=== PATIENT | male | born 1985 | race American Indian/Alaskan Native ===

== ENCOUNTER 2019-03-02 23:12 | Inpatient (IN) | payer OTHER ==
[2019-03-02] MEDS ORDERED: ASPIRIN PO ONE (23:35)
[2019-03-03 00:10] LABS: Basophils # (Auto) 0.1 K/mm3 (0.0-0.1); Basophils % (Auto) 0.6 % (0.0-1.8); Eosinophils # (Auto) 0.4 K/mm3 (0.0-0.4); Eosinophils % (Auto) 3.2 % (0.0-4.3); Hematocrit 42.9 % (35.5-45.6); Hemoglobin 13.8 gm/dl (11.8-15.2); Lymphocytes % (Auto) 23.3 % (13.4-35.0); Mean Corpuscular HGB Conc 32 % (32-34); Mean Corpuscular Volume 77 fl (84-94); Monocytes # (Auto) 1.3 K/mm3 (0.0-0.8); Monocytes % (Auto) 9.8 % (0.0-7.3); Platelet Count 300 K/mm3 (140-440); Red Blood Count 5.59 M/mm3 (3.65-5.03); Red Cell Distribution Width 18.2 % (13.2-15.2)
--- NOTE | 2019-03-03 00:12 | Emergency Department Report ---
ED Chest Pain HPI - General Chief Complaint: Chest Pain Stated Complaint: CHEST PAIN Time Seen by Provider: 03/02/19 23:45 Source: patient Mode of arrival: Ambulatory Limitations: No Limitations - History of Present Illness Initial Comments: 33-year-old -[place] male presents to the emergency department with a complaint of some midsternal nonradiating chest pain that has been going on for the past week intermittently but has become aggressively more intense and constant. The pains appear to be worse at night. His shorts of breath worsens with exertion. He denies any fever, cough, edema, nausea, vomiting or diaphoresis. He presents with elevated blood pressure and admits to medication noncompliance. There is some history of diabetes but he is not any medication as he says the medication previously prescribed to him was way too expensive. He also has a history of previous CVA without any residual deficits. Denies any tobacco or illicit drug use. He does not have a primary care physician. No recent travel. Severity scale (0 -10): 5 - Related Data Previous Rx's Medication Instructions Recorded Last Taken Type metFORMIN [Glucophage] 500 mg PO BID #60 tablet 03/15/15 06/14/15 Rx Carvedilol [Coreg] 12.5 mg PO BID #60 tablet 06/15/15 Unknown Rx Lisinopril/Hydrochlorothiazide 1 tab PO QDAY #30 tab 06/15/15 Unknown Rx [Zestoretic 20-25 mg] amLODIPine [Norvasc] 10 mg PO QDAY #30 tablet 06/15/15 Unknown Rx cloNIDine [Catapres] 0.1 mg PO DAILY #30 tablet 01/30/16 Unknown Rx hydrALAZINE [Apresoline TAB] 25 mg PO TID #90 tablet 01/30/16 Unknown Rx levoFLOXacin [Levaquin TAB] 750 mg PO Q24HR #7 tablet 01/30/16 Unknown Rx Allergies Allergy/AdvReac Type Severity Reaction Status Date / Time ants Allergy Swelling Uncoded 01/24/16 10:50 Heart Score - HEART Score History: Slightly suspicious EKG: Non-specific Age: < 45 Risk factors: > 3 risk factors or hx of atherosclerotic disease Troponin: 1-3x normal limit HEART Score: 4 - Critical Actions Critical Actions: 4-6 pts:12-16.6% risk of adverse cardiac event. Should be admitted ED Review of Systems ROS: Stated complaint: CHEST PAIN Other details as noted in HPI Comment: All other systems reviewed and negative Constitutional: denies: chills, fever Eyes: denies: eye pain, vision change ENT: denies: ear pain, throat pain Respiratory: shortness of breath, SOB with exertion. denies: cough Cardiovascular: chest pain. denies: palpitations Gastrointestinal: denies: abdominal pain, vomiting Genitourinary: denies: dysuria, discharge Musculoskeletal: denies: back pain, arthralgia Skin: denies: rash, lesions Neurological: denies: headache, weakness ED Past Medical Hx - Past Medical History Previous Medical History?: Yes Hx Hypertension: Yes Hx Congestive Heart Failure: No Hx Diabetes: Yes Hx Asthma: No Hx COPD: No Hx HIV: No Additional medical history: MORBID OBESITY - Surgical History Past Surgical History?: No - Social History Smoking Status: Never Smoker Substance Use Type: None - Medications Home Medications: Home Medications Medication Instructions Recorded Confirmed Last Taken Type metFORMIN [Glucophage] 500 mg PO BID #60 tablet 03/15/15 06/14/15 06/14/15 Rx Carvedilol [Coreg] 12.5 mg PO BID #60 tablet 06/15/15 Unknown Rx Lisinopril/Hydrochlorothiazide 1 tab PO QDAY #30 tab 06/15/15 Unknown Rx [Zestoretic 20-25 mg] amLODIPine [Norvasc] 10 mg PO QDAY #30 tablet 06/15/15 Unknown Rx cloNIDine [Catapres] 0.1 mg PO DAILY #30 tablet 01/30/16 Unknown Rx hydrALAZINE [Apresoline TAB] 25 mg PO TID #90 tablet 01/30/16 Unknown Rx levoFLOXacin [Levaquin TAB] 750 mg PO Q24HR #7 tablet 01/30/16 Unknown Rx ED Physical Exam - General Limitations: No Limitations - Other Other exam information: GENERAL: The patient is well-developed well-nourished. HENT: Normocephalic. Atraumatic. Patient has moist mucous membranes. EYES: Extraocular motions are intact. NECK: Supple. Trachea is midline. CHEST/LUNGS: Clear to auscultation. There is no respiratory distress noted. Chest pain is not reproducible to palpation of the chest wall. HEART/CARDIOVASCULAR: Regular. There is no tachycardia. There is no murmur. ABDOMEN: Abdomen is soft, nontender. Patient has normal bowel sounds. Morbidly obese habitus. SKIN: Skin is warm and dry. NEURO: The patient is awake, alert, and oriented. The patient is cooperative. The patient has no focal neurologic deficits. Normal speech. MUSCULOSKELETAL: There is no tenderness or deformity. There is no evidence of acute injury. ED Course Vital Signs 03/02/19 03/02/19 03/03/19 23:21 23:47 00:50 Temperature 99.0 F 98.2 F Pulse Rate 109 H 104 H 104 H Respiratory 20 14 Rate Blood Pressure 212/164 200/144 Blood Pressure 209/153 [Left] O2 Sat by Pulse 96 93 Oximetry 03/03/19 03/03/19 03/03/19 00:52 01:00 01:22 Temperature Pulse Rate 107 H Respiratory 20 25 H 15 Rate Blood Pressure 215/152 Blood Pressure [Left] O2 Sat by Pulse 94 Oximetry 03/03/19 02:09 Temperature Pulse Rate 111 H Respiratory Rate Blood Pressure 221/150 Blood Pressure [Left] O2 Sat by Pulse Oximetry - Reevaluation(s) Reevaluation #1: 03/03/19 02:54 Lab Results 03/02/19 03/02/19 03/02/19 Range/Units 23:54 23:54 23:54 WBC 13.0 H (4.5-11.0) K/mm3 RBC 5.59 H (3.65-5.03) M/mm3 Hgb 13.8 (11.8-15.2) gm/dl Hct 42.9 (35.5-45.6) % MCV 77 L (84-94) fl MCH 25 L (28-32) pg MCHC 32 (32-34) % RDW 18.2 H (13.2-15.2) % Plt Count 300 (140-440) K/mm3 Lymph % (Auto) 23.3 (13.4-35.0) % [place] % (Auto) 9.8 H (0.0-7.3) % Eos % (Auto) 3.2 (0.0-4.3) % Baso % (Auto) 0.6 (0.0-1.8) % Lymph # 3.0 (1.2-5.4) K/mm3 [place] # 1.3 H (0.0-0.8) K/mm3 Eos # 0.4 (0.0-0.4) K/mm3 Baso # 0.1 (0.0-0.1) K/mm3 Seg Neutrophils % 63.1 (40.0-70.0) % Seg Neutrophils # 8.2 H (1.8-7.7) K/mm3 D-Dimer 1549.97 H (0-234) ng/mlDDU Sodium 142 (137-145) mmol/L Potassium 2.8 L* (3.6-5.0) mmol/L Chloride 98.2 (98-107) mmol/L Carbon Dioxide 29 (22-30) mmol/L Anion Gap 18 mmol/L BUN 21 H (9-20) mg/dL Creatinine 2.5 H (0.8-1.5) mg/dL Estimated GFR 36 ml/min BUN/Creatinine Ratio 8 % Glucose 128 H (75-100) mg/dL Calcium 7.4 L (8.4-10.2) mg/dL Troponin T 0.042 H (0.00-0.029) ng/mL NT-Pro-B Natriuret Pep (0-450) pg/mL 03/02/19 Range/Units 23:54 WBC (4.5-11.0) K/mm3 RBC (3.65-5.03) M/mm3 Hgb (11.8-15.2) gm/dl Hct (35.5-45.6) % MCV (84-94) fl MCH (28-32) pg MCHC (32-34) % RDW (13.2-15.2) % Plt Count (140-440) K/mm3 Lymph % (Auto) (13.4-35.0) % [place] % (Auto) (0.0-7.3) % Eos % (Auto) (0.0-4.3) % Baso % (Auto) (0.0-1.8) % Lymph # (1.2-5.4) K/mm3 [place] # (0.0-0.8) K/mm3 Eos # (0.0-0.4) K/mm3 Baso # (0.0-0.1) K/mm3 Seg Neutrophils % (40.0-70.0) % Seg Neutrophils # (1.8-7.7) K/mm3 D-Dimer (0-234) ng/mlDDU Sodium (137-145) mmol/L Potassium (3.6-5.0) mmol/L Chloride (98-107) mmol/L Carbon Dioxide (22-30) mmol/L Anion Gap mmol/L BUN (9-20) mg/dL Creatinine (0.8-1.5) mg/dL Estimated GFR ml/min BUN/Creatinine Ratio % Glucose (75-100) mg/dL Calcium (8.4-10.2) mg/dL Troponin T (0.00-0.029) ng/mL NT-Pro-B Natriuret Pep 1100 H (0-450) pg/mL LILIANA score - Liliana Score Age > 65: (0) No Aspirin use within the Past 7 Days: (0) No 3 or more CAD Risk Factors: (1) Yes 2 or more Angina events in past 24 hrs: (1) Yes Known CAD with more than 50% Stenosis: (0) No Elevated Cardiac Markers: (1) Yes ST Deviation Greater than 0.5mm: (0) No LILIANA Score: 3 ED Medical Decision Making - Lab Data Result diagrams: 03/02/19 23:54 03/02/19 23:54 - EKG Data -: EKG Interpreted by Sd EKG shows normal: sinus rhythm, axis, intervals, QRS complexes (q waves to the septal leads), ST-T waves (t wave inversion to the lateral leads) Rate: tachycardia (111 bpm) - EKG Data When compared to previous EKG there are: no significant change Interpretation: unchanged when compared t (01/24/16) - Radiology Data Radiology results: report reviewed CHEST 1 VIEW INDICATION / CLINICAL INFORMATION: Chest Pain. COMPARISON: 01/29/2016 FINDINGS: SUPPORT DEVICES: None. HEART / MEDIASTINUM: Cardiomediastinal silhouette is at the upper limit of normal in size. LUNGS / PLEURA: Hazy, indistinct opacity in the right suprahilar area and bibasilar inhomogeneous densities. No pneumothorax. ADDITIONAL FINDINGS: No significant additional findings. IMPRESSION: 1. Bilateral basilar pleural-parenchymal opacities. 2. Indistinct right perihilar opacity may represent airspace disease. NM lung scan perf/vent INDICATION / CLINICAL INFORMATION: CP, elevated dimer. TECHNIQUE: Dose / Agent / Route: 5.11 technetium 99m MAA IV and 15.1mCi xenon- 133 inhaled COMPARISON: Portable chest x-ray 03/02/2019 FINDINGS: There are no segmental or subsegmental perfusion defects. Ventilation images show mild bilateral air trapping. IMPRESSION: 1. Low probability for pulmonary embolism. - Medical Decision Making This patient presents with a one-week history of progressively worsening chest pain and also presents with extremely elevated blood pressure. He has a history of hypertension but has medication noncompliance. Patient's labs show some abnormalities with what appears to be some acute renal insufficiency/failure, and an elevated and equivocal troponin level. The elevated troponin may be secondary to the renal insufficiency but the patient also has chest pain so this is concerning and will be trended. Chest x-ray does not show any acute process. The patient did have an elevated d-dimer level so a VQ scan was done that came back low probability for a pulmonary embolism. The patient has a moderate heart score and LILIANA score. The patient has been given pain control, hydralazine, labetalol, and still has elevated blood pressure. He will be admitted to the hospital for further evaluation and treatment was accepted for admission by the hospitalist, Dr. Malagon. - Differential Diagnosis MN, PE, Hypertensive Crisis, Pneumonia Critical Care Time: No Critical care attestation.: If time is entered above; I have spent that time in minutes in the direct care of this critically ill patient, excluding procedure time. ED Disposition Clinical Impression: Acute chest pain, Elevated troponin, Hypokalemia, Hypertensive urgency Acute kidney failure Qualifiers: Acute renal failure type: unspecified Qualified Code(s): N17.9 - Acute kidney failure, unspecified Disposition: OP ADMIT IP TO THIS HOSP Is pt being admited?: Yes Condition: Fair Instructions: Chest Pain (ED) Referrals: PRIMARY CARE, [Primary Care Provider] - 3-5 Days Time of Disposition: 02:11
--- NOTE | 2019-03-03 00:18 | XRay Report ---
CHEST 1 VIEW INDICATION / CLINICAL INFORMATION: Chest Pain. COMPARISON: 01/29/2016 FINDINGS: SUPPORT DEVICES: None. HEART / MEDIASTINUM: Cardiomediastinal silhouette is at the upper limit of normal in size. LUNGS / PLEURA: Hazy, indistinct opacity in the right suprahilar area and bibasilar inhomogeneous den sities. No pneumothorax. ADDITIONAL FINDINGS: No significant additional findings. IMPRESSION: 1. Bilateral basilar pleural-parenchymal opacities. 2. Indistinct right perihilar opacity may represent airspace disease. Signer Name: Shahzad Lopez MD Signed: 03/03/2019 12:13 AM Workstation Name: [email or web address] ([facility]: [place])
[2019-03-03 00:24] LABS: Calcium 7.4 mg/dL (8.4-10.2)
[2019-03-03] MEDS ORDERED: MORPHINE IV ONE (00:27)
[2019-03-03] MEDS ORDERED: APRESOLINE IV ONE ×2 (00:27→05:31)
[2019-03-03] MEDS ORDERED: ZOFRAN IV ONE (00:27)
[2019-03-03] MEDS ORDERED: K-DUR PO ONE (00:50)
[2019-03-03] MEDS: KCL 10MEQ/100ML 10 MEQ/100 ML BAG IV SCH ×6 (01:08→11:04)
[2019-03-03] MEDS ORDERED: LABETALOL IV ONE (02:02)
--- NOTE | 2019-03-03 02:49 | Nuclear Medicine Report ---
NM lung scan perf/vent INDICATION / CLINICAL INFORMATION: CP, elevated dimer. TECHNIQUE: Dose / Agent / Route: 5.11 technetium 99m MAA IV and 15.1mCi xenon-133 inhaled COMPARISON: Portable chest x-ray 03/02/2019 FINDINGS: There are no segmental or subsegmental perfusion defects. Ventilation images show mild bilateral air trapping. IMPRESSION: 1. Low probability for pulmonary embolism. Signer Name: Shahzad Lopez MD Signed: 03/03/2019 2:44 AM Workstation Name: [email or web address]
[2019-03-03] MEDS ORDERED: SODIUM CHLORIDE FLUSH SYRINGE 10 ML IV PRN ×3 (03:02→06:14)
[2019-03-03] MEDS ORDERED: ZOFRAN IV PRN ×2 (03:02→06:14)
--- NOTE | 2019-03-03 03:14 | History and Physical Report ---
History of Present Illness Date of examination: 03/03/19 Date of admission: 03/03/19 Chief complaint: chest pain, SOB History of present illness: Pt is a 33-year-old male with PMHx of HTN, HDL, DM type 2, gout, obesity who presents to the ER with complaint of chest pain and SOB x 1 week. Pt states that he has been having a midsternal chest pain, the pain is intermittently and associated with severe SOB for the past week. Pt states that tonight the pain became more intense, it is unrelieved with any home remedies, it is worse with any activities, he couldn't catch his breath, he decided to come to the ER for evaluation. Pt denies any recent illness, he denies diaphoresis, denies cough, denies nausea or vomiting, denies headache, denies fever or chills. In the ER, pt's blood pressure was in the 200's, EKG was abnormal, first troponin T was elevated, WBC was 13.0, BUN/creat was 21/2.5, BNP 1100, calcium was 7.4. Pt reports a strong family history of heart disease, he doesn't have a PCP and had not taking his medications because he cannot afford them. Past History Past Medical History: diabetes, hypertension, hyperlipidemia, stroke, other (gout) Past Surgical History: No surgical history Social history: no significant social history Family history: CAD (brother and grandmother), hypertension Medications and Allergies Allergies Allergy/AdvReac Type Severity Reaction Status Date / Time ants Allergy Swelling Uncoded 01/24/16 10:50 Home Medications Medication Instructions Recorded Confirmed Last Taken Type Lisinopril/Hydrochlorothiazide 1 tab PO QDAY #30 tab 06/15/15 03/03/19 Unknown Rx [Zestoretic 20-25 mg] cloNIDine [Catapres] 0.1 mg PO DAILY #30 tablet 01/30/16 03/03/19 Unknown Rx hydrALAZINE [Apresoline TAB] 25 mg PO TID #90 tablet 01/30/16 03/03/19 Unknown Rx Active Meds: Active Medications Acetaminophen (Tylenol) 650 mg PO Q4H PRN PRN Reason: Pain MILD(1-3)/Fever >100.5/DOWNS Aspirin (Ecotrin) 325 mg PO QDAY [facility] Atorvastatin Calcium (Lipitor) 40 mg PO QHS [facility] Docusate Sodium (Colace) 100 mg PO BID [facility] Famotidine (Pepcid) 20 mg IV BID EFRAIN Ondansetron HCl (Zofran) 4 mg IV Q8H PRN PRN Reason: Nausea And Vomiting Sodium Chloride (Sodium Chloride Flush Syringe 10 Ml) 10 ml IV BID EFRAIN Sodium Chloride (Sodium Chloride Flush Syringe 10 Ml) 10 ml IV PRN PRN PRN Reason: LINE FLUSH Sodium Chloride (Sodium Chloride Flush Syringe 10 Ml) 10 ml IV PRN PRN PRN Reason: LINE FLUSH Review of Systems Cardiovascular: chest pain, palpitations Respiratory: shortness of breath, dyspnea on exertion Musculoskeletal: arthritis (joint pain) Exam - Constitutional Vitals: Temp Pulse Resp BP Pulse Ox 98.2 F 111 H 15 221/150 94 03/02/19 23:47 03/03/19 02:09 03/03/19 01:22 03/03/19 02:09 03/03/19 01:00 General appearance: Present: mild distress - EENT Eyes: Present: EOM intact ENT: hearing intact - Neck Neck: Present: normal ROM - Respiratory Respiratory: bilateral: CTA - Cardiovascular Rhythm: regular - Extremities Extremities: no ischemia, No edema Peripheral Pulses: within normal limits - Abdominal General gastrointestinal: Present: non-tender, non-distended Male genitourinary: Present: deferred - Rectal Rectal Exam: deferred - Integumentary Integumentary: Present: warm, dry - Musculoskeletal Musculoskeletal: strength equal bilaterally - Psychiatric Psychiatric: appropriate mood/affect, cooperative - Neurologic Neurologic: moves all extremities Results - Labs CBC & Chem 7: 03/03/19 03:19 03/03/19 03:19 Labs: Laboratory Last Values WBC 13.0 K/mm3 (4.5-11.0) H 03/02/19 23:54 RBC 5.59 M/mm3 (3.65-5.03) H 03/02/19 23:54 Hgb 13.8 gm/dl (11.8-15.2) 03/02/19 23:54 Hct 42.9 % (35.5-45.6) 03/02/19 23:54 MCV 77 fl (84-94) L 03/02/19 23:54 MCH 25 pg (28-32) L 03/02/19 23:54 MCHC 32 % (32-34) 03/02/19 23:54 RDW 18.2 % (13.2-15.2) H 03/02/19 23:54 Plt Count 300 K/mm3 (140-440) 03/02/19 23:54 Lymph % (Auto) 23.3 % (13.4-35.0) 03/02/19 23:54 [place] % (Auto) 9.8 % (0.0-7.3) H 03/02/19 23:54 Eos % (Auto) 3.2 % (0.0-4.3) 03/02/19 23:54 Baso % (Auto) 0.6 % (0.0-1.8) 03/02/19 23:54 Lymph # 3.0 K/mm3 (1.2-5.4) 03/02/19 23:54 [place] # 1.3 K/mm3 (0.0-0.8) H 03/02/19 23:54 Eos # 0.4 K/mm3 (0.0-0.4) 03/02/19 23:54 Baso # 0.1 K/mm3 (0.0-0.1) 03/02/19 23:54 Seg Neutrophils % 63.1 % (40.0-70.0) 03/02/19 23:54 Seg Neutrophils # 8.2 K/mm3 (1.8-7.7) H 03/02/19 23:54 D-Dimer 1549.97 ng/mlDDU (0-234) H 03/02/19 23:54 Sodium 142 mmol/L (137-145) 03/02/19 23:54 Potassium 2.8 mmol/L (3.6-5.0) L* 03/02/19 23:54 Chloride 98.2 mmol/L (98-107) 03/02/19 23:54 Carbon Dioxide 29 mmol/L (22-30) 03/02/19 23:54 Anion Gap 18 mmol/L 03/02/19 23:54 BUN 21 mg/dL (9-20) H 03/02/19 23:54 Creatinine 2.5 mg/dL (0.8-1.5) H 03/02/19 23:54 Estimated GFR 36 ml/min 03/02/19 23:54 BUN/Creatinine Ratio 8 % 03/02/19 23:54 Glucose 128 mg/dL (75-100) H 03/02/19 23:54 Calcium 7.4 mg/dL (8.4-10.2) L 03/02/19 23:54 Troponin T 0.042 ng/mL (0.00-0.029) H 03/02/19 23:54 NT-Pro-B Natriuret Pep 1100 pg/mL (0-450) H 03/02/19 23:54 Assessment and Plan Assessment and plan: 1. Unstable angina r/o ACS 2. NSTEMI 3. Hypertensive urgency 4. Elevated troponin 5. CHF 6. ALEX (likely due to uncontrolled HTN, dehydration) 7. Hypokalemia 8. Hypocalcemia 9. HDL 10. DM type 2 11. Gout 12. Morbid obesity Plan: Pt is admitted for chest pain, NSTEMI hospital monitor Continue cardiac enzyme Consult cardiology for chest pain Echocardiogram it ok with cardiology Hydralizine PRN for BP control DC patric for elevated BUN/creat Resume other home meds Consult nephrology for management Accu chesk ACHS with insulin per sliding scale Nitro PRN for chest pain Monitor electrolytes Repeat labs in am Advance Directives: Yes VTE prophylaxis?: Chemical Plan of care discussed with patient/family: Yes
[2019-03-03 03:25] LABS: Chol/HDL Ratio 8.81 %
[2019-03-03 03:43] LABS: Basophils # (Auto) 0.1 K/mm3 (0.0-0.1); Basophils % (Auto) 0.6 % (0.0-1.8); Eosinophils # (Auto) 0.4 K/mm3 (0.0-0.4); Eosinophils % (Auto) 2.8 % (0.0-4.3); Hematocrit 43.6 % (35.5-45.6); Lymphocytes # (Auto) 2.3 K/mm3 (1.2-5.4); Lymphocytes % (Auto) 17.6 % (13.4-35.0); Mean Corpuscular HGB Conc 32 % (32-34); Mean Corpuscular Volume 77 fl (84-94); Monocytes % (Auto) 7.2 % (0.0-7.3); Platelet Count 308 K/mm3 (140-440); Red Blood Count 5.68 M/mm3 (3.65-5.03); Red Cell Distribution Width 18.2 % (13.2-15.2)
[2019-03-03 03:58] LABS: Calcium 7.4 mg/dL (8.4-10.2)
[2019-03-03] MEDS ORDERED: NITRO-BID 2% TP ONE (04:58)
[2019-03-03] MEDS: NITRO-BID 2% TP SCH ×5 (05:00→18:43)
[2019-03-03] MEDS ORDERED: APRESOLINE IV PRN (06:00)
[2019-03-03] MEDS ORDERED: TYLENOL PO PRN (06:14)
[2019-03-03] MEDS ORDERED: LASIX IV ONE (06:21)
[2019-03-03] MEDS ORDERED: HEPARIN 10,000 UNITS/10 ML IV ONE (06:25)
[2019-03-03] MEDS ORDERED: D50W (25GM) Syringe IV PRN ×2 (06:30→10:00)
[2019-03-03] MEDS: HumuLIN R SUB-Q SCH ×4 (06:43→21:41)
[2019-03-03] MEDS ORDERED: LASIX ONE (06:44)
[2019-03-03] MEDS ORDERED: HEPARIN/ 0.45% NACL-25,000 UNIT/500 ML 25,000 UNIT/500 ML BAG ONE (06:48)
[2019-03-03] MEDS ORDERED: HEPARIN 10,000 UNITS/10 ML ONE (06:48)
[2019-03-03] MEDS ORDERED: KCL 10MEQ/100ML 10 MEQ/100 ML BAG IV ONE ×2 (06:57→08:49)
[2019-03-03] MEDS ORDERED: HEPARIN/ 0.45% NACL-25,000 UNIT/500 ML 25,000 UNIT/500 ML BAG IV SCH ×2 (07:00)
[2019-03-03] MEDS ORDERED: CARDENE 50 MG in NACL 0.9% 250ML 230 ML IV SCH (07:00)
[2019-03-03 07:21] LABS: Hemoglobin 13.9 gm/dl (11.8-15.2)
[2019-03-03 07:31] LABS: INR 1.05 (0.87-1.13)
[2019-03-03 07:32] LABS: Partial Thromboplastin Time 32.3 Sec. (24.2-36.6)
[2019-03-03] MEDS ORDERED: SODIUM CHLORIDE FLUSH SYRINGE 10 ML IV SCH (10:00)
[2019-03-03] MEDS ORDERED: PEPCID IV SCH (10:00)
[2019-03-03] MEDS: COLACE PO SCH ×2 (10:18→21:42)
[2019-03-03] MEDS: SODIUM CHLORIDE FLUSH SYRINGE 10 ML IV SCH ×2 (10:19→21:44)
[2019-03-03] MEDS ORDERED: CATAPRES PO SCH (11:00)
[2019-03-03] MEDS: APRESOLINE PO SCH ×3 (11:12→21:42)
--- NOTE | 2019-03-03 11:33 | Event Note ---
Date: 03/03/19 Detailed cardiology consultation dictated. Pt presented with c/o chest pain, SOB, HF and uncontrolled HTN secondary to medical noncompliance. Pt also with suspected VELIA. ECG with NSR and changes c/w LVH. Pt noted to have acute renal failure. Troponins are minimally elevated and currently nonspecific, d/c heparin gtt. Optimize BPs - initiate coreg and amlodipine, decrease clonidine to BID and wean off cardene gtt, no ACEI/ARB at this time in setting of renal insufficiency. Await nephrology recs. Obtain echo. Plan for lexiscan MPI stress test on Wednesday, 03/06, as pt underwent V/Q scan this morning and stress lab is closed on Sundays. Alexis CASANOVA NP / DR. LAI
--- NOTE | 2019-03-03 11:37 | Consultation ---
History of Present Illness - History of Present Illness Thank you for the consultation Patient was evaluated today My assessment and plan are as follows Accelerated hypertension with hypokalemia suspicious for secondary hypertension, patient has history of long-standing poorly controlled hypertension, that requires gradual reduction in excellent control of blood pressure We will send plasma metanephrine/ aldosterone as well as plasma renin level In the meantime we'll start the patient on Aldactone therapy very high index of clinical suspicion for secondary hypertension possibly syndromes of aldosterone excess Renal failure concerning in a patient who does have history of diabetes hypertension hyperlipidemia prior history of stroke and gout He is at very high risk of progression for renal failure over time Patient was adequately counseled and educated regarding all the renal related issues Renal prognosis remains guarded at this time Patient will need to make a follow-up appointment in the office upon discharge within a week or two Labs were discussed with patient explained and simple Pashto does have good understanding off renal related issues, Will continue to follow and make recommendation from renal standpoint Source of information; Patient himself as well as current records History of presenting illness; 33-year-old -[place] male who has been admitted here with uncontrolled hypertension patient's baseline creatinine is 1.5 as of 2016, he has long- standing history of hypertension. He was unable to afford a physician visit, and has not been properly followed by a physician in the outpatient setting. He has also not been taking his medication likely he could have His blood pressure at home has been running between 160-180 systolic Here during this admission he has been noted to have potassium of 2.8B UN 20 creatinine 2.4 bicarbonate 30 hemoglobin 13.9 Blood pressure has been close to 200 systolic Currently does not have any complaints of headaches chest pain Past medical history significant for Difficult to control hypertension: Long-standing duration History of CVA Diabetes mellitus type 2 Hyperlipidemia Gout hyperuricemia Current allergies: Ant Social history family history: Reviewed Current medication: Reviewed Review of systems: Positive for Midsternal chest pain Uncontrolled hypertension History of gout He was seen by some outside medical approximately a year ago All other review of system negative Physical examination General: No acute distress HEENT: Oral mucosa moist no pharyngeal erythema no pallor or icterus no uremic order Neck: Supple no evidence of any thyromegaly trachea midline no JVD Chest: Clear to auscultation no crackles are also wheezes anteriorly Heart: Regular rate and rhythm S1-S2 heard no S3-S4 Abdomen: Soft nontender no renal bruit no CVA tenderness no suprapubic fullness no organomegaly Extremity: Minimal edema dry skin no peripheral cyanosis pulses palpable Neurological: Alert awake follows command grossly nonfocal examination Back: Nontender thoracolumbar spine Musculoskeletal: No joint effusion noted Skin: No petechial rash/noted Past History Past Medical History: diabetes, hypertension, hyperlipidemia, stroke, other (gout) Past Surgical History: No surgical history Social history: no significant social history Family history: CAD (brother and grandmother), hypertension Medications and Allergies Allergies Allergy/AdvReac Type Severity Reaction Status Date / Time ants Allergy Swelling Uncoded 01/24/16 10:50 Home Medications Medication Instructions Recorded Confirmed Last Taken Type Lisinopril/Hydrochlorothiazide 1 tab PO QDAY #30 tab 06/15/15 03/03/19 Unknown Rx [Zestoretic 20-25 mg] cloNIDine [Catapres] 0.1 mg PO DAILY #30 tablet 01/30/16 03/03/19 Unknown Rx hydrALAZINE [Apresoline TAB] 25 mg PO TID #90 tablet 01/30/16 03/03/19 Unknown Rx Active Meds: Active Medications Acetaminophen (Tylenol) 650 mg PO Q4H PRN PRN Reason: Pain MILD(1-3)/Fever >100.5/DOWNS Amlodipine Besylate (Norvasc) 5 mg PO QDAY [facility] Aspirin (Ecotrin) 325 mg PO QDAY [facility] Atorvastatin Calcium (Lipitor) 40 mg PO QHS [facility] Carvedilol (Coreg) 12.5 mg PO BID [facility] Clonidine HCl (Catapres) 0.1 mg PO BID [facility] Dextrose (D50w (25gm) Syringe) 50 ml IV Q1H PRN PRN Reason: Hypoglycemia Docusate Sodium (Colace) 100 mg PO BID [facility] Last Admin: 03/03/19 10:18 Dose: 100 mg Documented by: Famotidine (Pepcid) 20 mg IV QAM [facility] Last Admin: 03/03/19 10:18 Dose: 20 mg Documented by: Hydralazine HCl (Apresoline) 50 mg PO Q8HR [facility] Last Admin: 03/03/19 11:12 Dose: 50 mg Documented by: Hydralazine HCl (Apresoline) 10 mg IV Q4H [facility] Stop: 03/05/19 11:59 Nicardipine HCl 50 mg/ Sodium (Chloride) 250 mls @ 25 mls/hr IV TITR [facility]; Protocol Last Titration: 03/03/19 10:15 Dose: 10 mg/hr, 50 mls/hr Documented by: Insulin Human Regular (Humulin R) 0 units SUB-Q Q4H [facility]; Protocol Last Admin: 03/03/19 06:43 Dose: Not Given Documented by: Nitroglycerin (Nitro-Bid 2%) 1 inch TP QIDNTG [facility]; Protocol Last Admin: 03/03/19 10:27 Dose: 1 inch Documented by: Ondansetron HCl (Zofran) 4 mg IV Q8H PRN PRN Reason: Nausea And Vomiting Sodium Chloride (Sodium Chloride Flush Syringe 10 Ml) 10 ml IV BID [facility] Last Admin: 03/03/19 10:19 Dose: 10 ml Documented by: Sodium Chloride (Sodium Chloride Flush Syringe 10 Ml) 10 ml IV PRN PRN PRN Reason: LINE FLUSH Exam - Vital Signs Vital signs: Vital Signs Temp Pulse Resp BP Pulse Ox 99.0 F 109 H 20 212/164 96 03/02/19 23:21 03/02/19 23:21 03/02/19 23:21 03/02/19 23:21 03/02/19 23:21 Results - Lab Results 03/03/19 06:50 03/03/19 03:19 Most recent lab results Calcium 7.4 mg/dL (8.4-10.2) L 03/03/19 03:19
--- NOTE | 2019-03-03 12:37 | Consultation ---
History of Present Illness Consult date: 03/03/19 Requesting physician: CHELSEA VEGA Reason for consult: other (Hypertensive Urgency) History of present illness: PULMONARY/CCM CONSULT NOTE (Full dictation # [id number]) Please see dictated notes for full details Past History Past Medical History: diabetes, hypertension, hyperlipidemia, stroke, other (gout) Past Surgical History: No surgical history Social history: no significant social history Family history: CAD (brother and grandmother), hypertension Medications and Allergies Allergies Allergy/AdvReac Type Severity Reaction Status Date / Time ants Allergy Swelling Uncoded 01/24/16 10:50 Home Medications Medication Instructions Recorded Confirmed Last Taken Type Lisinopril/Hydrochlorothiazide 1 tab PO QDAY #30 tab 06/15/15 03/03/19 Unknown Rx [Zestoretic 20-25 mg] cloNIDine [Catapres] 0.1 mg PO DAILY #30 tablet 01/30/16 03/03/19 Unknown Rx hydrALAZINE [Apresoline TAB] 25 mg PO TID #90 tablet 01/30/16 03/03/19 Unknown Rx Active Meds: Active Medications Acetaminophen (Tylenol) 650 mg PO Q4H PRN PRN Reason: Pain MILD(1-3)/Fever >100.5/DOWNS Amlodipine Besylate (Norvasc) 5 mg PO QDAY EFRAIN Aspirin (Ecotrin) 325 mg PO QDAY EFRAIN Atorvastatin Calcium (Lipitor) 40 mg PO QHS [facility] Carvedilol (Coreg) 12.5 mg PO BID EFRAIN Clonidine HCl (Catapres) 0.1 mg PO BID [facility] Dextrose (D50w (25gm) Syringe) 50 ml IV Q1H PRN PRN Reason: Hypoglycemia Docusate Sodium (Colace) 100 mg PO BID [facility] Last Admin: 03/03/19 10:18 Dose: 100 mg Documented by: Famotidine (Pepcid) 20 mg PO DAILY [facility] Heparin Sodium (Porcine) (Heparin) 5,000 unit SUB-Q Q8HR EFRAIN Hydralazine HCl (Apresoline) 50 mg PO Q8HR [facility] Last Admin: 03/03/19 11:12 Dose: 50 mg Documented by: Hydralazine HCl (Apresoline) 10 mg IV Q4H EFRAIN Stop: 03/05/19 11:59 Nicardipine HCl 50 mg/ Sodium (Chloride) 250 mls @ 25 mls/hr IV TITR EFRAIN; Protocol Last Titration: 03/03/19 11:45 Dose: 7.5 mg/hr, 37.5 mls/hr Documented by: Insulin Human Regular (Humulin R) 0 units SUB-Q ACHS [facility]; Protocol Nitroglycerin (Nitro-Bid 2%) 1 inch TP QIDNTG [facility]; Protocol Last Admin: 03/03/19 10:27 Dose: 1 inch Documented by: Ondansetron HCl (Zofran) 4 mg IV Q8H PRN PRN Reason: Nausea And Vomiting Sodium Chloride (Sodium Chloride Flush Syringe 10 Ml) 10 ml IV BID [facility] Last Admin: 03/03/19 10:19 Dose: 10 ml Documented by: Sodium Chloride (Sodium Chloride Flush Syringe 10 Ml) 10 ml IV PRN PRN PRN Reason: LINE FLUSH Physical Examination Vital signs: Vital Signs Temp Pulse Resp BP Pulse Ox 99.0 F 109 H 20 212/164 96 03/02/19 23:21 03/02/19 23:21 03/02/19 23:21 03/02/19 23:21 03/02/19 23:21 Results - Laboratory Findings CBC and BMP: 03/03/19 06:50 03/03/19 03:19 PT/INR, D-dimer PT 13.4 Sec. (12.2-14.9) 03/03/19 06:44 INR 1.05 (0.87-1.13) 03/03/19 06:44 D-Dimer 1549.97 ng/mlDDU (0-234) H 03/02/19 23:54 Abnormal lab findings: Abnormal Labs 03/02/19 03/02/19 03/02/19 23:54 23:54 23:54 WBC 13.0 H RBC 5.59 H MCV 77 L MCH 25 L RDW 18.2 H Rush % (Auto) 9.8 H Rush # 1.3 H Seg Neutrophils % Seg Neutrophils # 8.2 H D-Dimer 1549.97 H Potassium 2.8 L* Chloride BUN 21 H Creatinine 2.5 H Glucose 128 H POC Glucose Calcium 7.4 L Troponin T 0.042 H NT-Pro-B Natriuret Pep Triglycerides 161 H Cholesterol 238 H LDL Cholesterol Direct 181 H HDL Cholesterol 27 L 10/17/19 10/18/19 10/18/19 23:54 03:19 03:19 WBC 13.2 H RBC 5.68 H MCV 77 L MCH 25 L RDW 18.2 H Rush % (Auto) Rush # 1.0 H Seg Neutrophils % 71.8 H Seg Neutrophils # 9.5 H D-Dimer Potassium Chloride BUN Creatinine Glucose POC Glucose Calcium Troponin T 0.033 H D NT-Pro-B Natriuret Pep 1100 H Triglycerides Cholesterol LDL Cholesterol Direct HDL Cholesterol 03/03/19 03/03/19 03:19 10:23 WBC RBC MCV MCH RDW Rush % (Auto) Rush # Seg Neutrophils % Seg Neutrophils # D-Dimer Potassium 2.8 L* Chloride 94.2 L BUN Creatinine 2.4 H Glucose 132 H POC Glucose 133 H Calcium 7.4 L Troponin T NT-Pro-B Natriuret Pep Triglycerides Cholesterol LDL Cholesterol Direct HDL Cholesterol
[2019-03-03] MEDS: COREG PO SCH ×2 (12:38→21:42)
[2019-03-03] MEDS: APRESOLINE IV SCH ×3 (12:39→19:57)
[2019-03-03] MEDS: TYLENOL PO PRN ×2 (12:40→21:41)
[2019-03-03] MEDS: ALDACTONE PO SCH (14:57)
[2019-03-03] MEDS: HEPARIN SUB-Q SCH ×2 (15:02→21:42)
[2019-03-03] MEDS: CATAPRES PO SCH (21:42)
--- NOTE | 2019-03-03 22:52 | Consultation ---
REQUESTING PHYSICIAN: Ryan Holden M.D. HISTORY OF PRESENT ILLNESS: This is a 33-year-old -[place] male who is now admitted to the hospital in the Emergency Room with complaints of chest pain and shortness of breath for further evaluation and management. History is now obtained from the patient as well as review of records. The patient is known to have hypertension, hyperlipidemia and type 2 diabetes mellitus. The patient came in with a complaint that he has been noticing exertional dyspnea and then he started noticing retrosternal chest pain and discomfort with exertion, relieved with resting. It became progressively worse. On the night of admission, the patient stated that he could barely do anything without getting out of breath and severe chest tightness, which is not relieved with home medications. So, he decided to come to the Emergency Room. The patient stated that he ran out of his medications for the past several days and has not been taking it. He could not afford the medications. The patient was seen with these complaints at the Emergency Room. At that time, he was noted to have a blood pressure of 220/115 with a heart rate of 111 per minute, which was regular. The patient was then hospitalized for further management. The patient said that he is feeling much better now. He does not have any chest pain or shortness of breath at this time at rest. PAST MEDICAL HISTORY: 1. Hypertension. 2. Type 2 diabetes mellitus. 3. Hyperlipidemia. 4. History of gouty arthritis. 5. Obesity. FAMILY HISTORY: Positive for hypertension and heart problems in his brother and grandmother. SOCIAL HISTORY: The patient is a nonsmoker. Nonalcoholic. He is unemployed. ALLERGIES: None known to medications. MEDICATIONS: Currently, the patient is on lisinopril/hydrochlorothiazide 20/25 mg 1 tablet p.o. daily, clonidine 0.1 mg p.o. daily, hydralazine 25 mg p.o. t.i.d. REVIEW OF SYSTEMS: CARDIOVASCULAR: As described above. The patient did give a history of orthopnea and exertional dyspnea at the time of admission along with chest pain. No palpitations, dizziness or syncope. Mild orthopnea noted. No PND. The patient denied any significant edema of feet. No claudications. RESPIRATORY: The patient denied any history of wheezing or asthma. Exertional dyspnea noted. GASTROINTESTINAL: Unremarkable. GENITOURINARY: Unremarkable. NEUROLOGIC: Unremarkable. PHYSICAL EXAMINATION: GENERAL: This is a 33-year-old -[place] male, well built and obese and in no acute distress at the present time. The patient is conscious, alert, oriented, afebrile. VITAL SIGNS: Blood pressure initially was elevated. This morning, the blood pressure down to 169/91 with a heart rate is still in the 110-120 range. SKIN: Warm and dry. HEENT: Pupils are reactive. NECK: Supple. Both carotids are well palpable without any bruit. No JVD. CHEST: Distant breath sounds. Prolonged expiration. Few rales at the lung bases. No rhonchi. HEART: S1, S2 heard well. Grade 1/6 systolic murmur noted. No diastolic murmur. Tachycardia noted. S3 gallop noted. ABDOMEN: Soft, obese, nontender. No palpable masses. Bowel sounds heard normal. EXTREMITIES: No edema, no calf tenderness. Pedal pulses are palpable. NEUROLOGICAL: Grossly within normal limits. RECTAL: Not done at this time. EKG done showed sinus tachycardia, T-wave abnormality in lateral leads. Abnormal ECG. LABORATORY DATA: The patient's BUN was 20, creatinine 2.4, potassium was 2.8. The patient had a V/Q scan of the chest done, which was negative for pulmonary embolism. IMPRESSION: 1. Chest pain with elevated troponin, questionable cause to rule out cardiac etiology. 2. Congestive heart failure. 3. Acute kidney injury. 4. Hypertension, uncontrolled. 5. Diabetes mellitus. 6. Hyperlipidemia. 7. Hypokalemia and hypocalcemia. 8. Obesity. 9. History of gout. RECOMMENDATIONS: This is a 33-year-old -[place] male with a history of hypertension, hyperlipidemia, diabetes mellitus, who is now admitted to the hospital with uncontrolled hypertension and acute kidney injury and evidence of congestive heart failure, which is probably acute on chronic systolic heart failure because of uncontrolled hypertension. The patient has been noncompliant. So, I do agree with the present management to be admitting the patient to the hospital. Control hypertension. Monitor the renal function closely. Obtain echocardiogram to assess the LV function. Elevated troponin could be secondary to renal insufficiency, but with multiple risk factors for coronary artery disease, I would proceed with a Lexiscan thallium test to rule out cardiac etiology. We will obtain an echocardiogram to assess the LV function. I had a long discussion with the patient and the family. The patient was advised to make sure that he keeps his blood pressure under control and potential risks explained to him including renal failure, congestive heart failure, stroke, etc. The patient may have to be evaluated for sleep apnea too at a later date. Prognosis remains guarded. Rest of the plan as per orders. We will follow the patient along with you. JOB# [id number] LUCERO/GILBERT
[2019-03-04] MEDS: APRESOLINE IV SCH ×6 (00:21→22:21)
[2019-03-04] MEDS: TYLENOL PO PRN ×2 (03:48→10:01)
[2019-03-04] MEDS: HEPARIN SUB-Q SCH ×3 (05:26→22:24)
[2019-03-04] MEDS: NITRO-BID 2% TP SCH ×2 (05:26→09:04)
[2019-03-04] MEDS: APRESOLINE PO SCH ×3 (05:26→22:23)
[2019-03-04] MEDS: HumuLIN R SUB-Q SCH ×4 (08:35→22:23)
[2019-03-04] MEDS: COLACE PO SCH ×2 (09:02→22:23)
[2019-03-04] MEDS: CATAPRES PO SCH ×3 (09:02→22:22)
[2019-03-04] MEDS: COREG PO SCH (09:03)
[2019-03-04] MEDS: PEPCID PO SCH (09:03)
[2019-03-04] MEDS: ALDACTONE PO SCH (09:03)
[2019-03-04] MEDS: ECOTRIN PO SCH (09:04)
[2019-03-04] MEDS: SODIUM CHLORIDE FLUSH SYRINGE 10 ML IV SCH ×2 (09:04→22:24)
[2019-03-04] MEDS ORDERED: APRESOLINE PO SCH (11:02)
--- NOTE | 2019-03-04 11:06 | Progress Note ---
Assessment and Plan cp htn urgency nstemi type 2 dm obeisty non compliance acute on chronic renal failure hypokalemia rec: Patient states blood pressure has not been well controlled last saw about a year ago was told prior to has history renal sufficiency patient has persistent hypokalemia suggest increase Aldactone to 50 mg. We'll DC carvedilol and start metoprolol 100 twice a day for better BP control increase hydralazine 103 times a day add Imdur 30 mg ischemic workup on Wednesday transfer to telemetry Subjective Date of service: 03/04/19 Principal diagnosis: cp Interval history: cp is better Objective Vital Signs Temp Pulse Resp Resp BP Pulse Ox 03/04/19 10:30 112 H 22 160/102 96 03/04/19 10:01 15 03/04/19 10:00 112 H 13 154/95 97 03/04/19 09:30 112 H 14 144/95 96 03/04/19 09:04 115 H 155/100 03/04/19 09:03 115 H 155/100 03/04/19 09:02 115 H 155/100 03/04/19 09:01 115 H 155/100 03/04/19 09:00 113 H 19 155/100 97 03/04/19 08:30 111 H 18 158/103 97 03/04/19 08:00 99.3 F 117 H 22 176/107 96 03/04/19 07:30 110 H 17 155/93 97 03/04/19 07:00 120 H 17 175/98 97 03/04/19 06:30 116 H 21 161/98 92 03/04/19 06:00 107 H 24 171/97 94 03/04/19 05:30 115 H 16 180/107 96 03/04/19 05:26 117 H 174/115 03/04/19 05:00 111 H 28 H 174/115 96 03/04/19 04:46 113 H 03/04/19 04:34 98.8 F 03/04/19 04:30 110 H 21 171/117 97 03/04/19 04:22 112 H 161/112 03/04/19 04:00 109 H 15 161/112 97 03/04/19 03:30 109 H 31 H 163/108 96 03/04/19 03:00 21 163/107 97 03/04/19 02:30 14 154/104 98 03/04/19 02:00 101 H 32 H 144/100 98 03/04/19 01:30 103 H 30 H 150/100 98 03/04/19 01:00 101 H 25 H 151/100 97 03/04/19 00:30 100 H 20 149/100 98 03/04/19 00:27 102 H 03/04/19 00:21 103 H 143/97 03/04/19 00:17 100 H 14 147/93 97 03/04/19 00:10 99.3 F 03/04/19 00:00 101 H 28 H 147/93 94 03/03/19 23:30 104 H 24 147/93 94 03/03/19 23:00 109 H 28 H 154/97 95 03/03/19 22:30 110 H 26 H 160/107 95 03/03/19 22:00 110 H 16 168/112 98 03/03/19 21:42 114 H 175/111 03/03/19 21:30 109 H 37 H 175/111 95 03/03/19 21:26 96 03/03/19 21:00 107 H 22 172/112 97 03/03/19 20:30 111 H 42 H 166/105 99 03/03/19 20:15 112 H 21 168/100 97 03/03/19 20:00 98.7 F 109 H 16 168/100 97 18/19 19:57 106 H 156/109 18/19 19:45 109 H 18 156/109 96 18/19 19:33 101 H 18/19 19:30 105 H 26 H 156/109 96 18/19 19:15 106 H 29 H 151/102 95 18/19 19:00 104 H 28 H 151/102 96 18/19 18:45 104 H 28 H 160/105 95 1018/19 18:43 103 H 160/105 18/19 18:30 105 H 19 160/105 97 1018/19 18:15 100 H 22 149/99 97 18/19 18:00 104 H 22 154/98 96 18/19 17:45 104 H 16 156/95 94 18/19 17:30 102 H 13 148/91 94 18/19 17:15 104 H 19 146/101 97 03/03/19 17:00 98 H 16 145/89 94 03/03/19 16:52 100 H 133/88 03/03/19 16:45 97 H 29 H 139/88 95 03/03/19 16:43 26 H 03/03/19 16:30 101 H 23 138/90 96 03/03/19 16:15 103 H 15 133/84 97 03/03/19 16:00 26 H 137/81 97 03/03/19 15:46 108 H 144/83 98 03/03/19 15:30 106 H 18 130/73 97 03/03/19 15:15 98 H 28 H 130/73 94 03/03/19 15:02 107 H 139/84 03/03/19 15:00 104 H 34 H 137/85 97 03/03/19 14:57 104 H 137/85 03/03/19 14:45 107 H 26 H 137/85 94 03/03/19 14:30 113 H 26 H 147/87 96 03/03/19 14:15 115 H 34 H 147/87 97 03/03/19 14:00 114 H 37 H 151/86 97 03/03/19 13:45 114 H 27 H 151/86 95 03/03/19 13:40 26 H 03/03/19 13:30 113 H 23 153/78 97 03/03/19 13:15 113 H 37 H 153/78 95 03/03/19 13:00 128 H 35 H 157/80 96 03/03/19 12:45 116 H 23 157/80 92 03/03/19 12:40 125 H 23 158/82 03/03/19 12:39 125 H 158/82 03/03/19 12:38 125 H 158/82 03/03/19 12:30 124 H 26 H 160/82 96 03/03/19 12:16 120 H 26 H 162/87 95 03/03/19 12:01 116 H 23 162/87 97 03/03/19 12:00 24 94 03/03/19 11:12 119 H 169/91 - Physical Examination General: Appears Well, No Apparent Distress HEENT: Positive: PERRL, EOMI Neck: Cardiac: Positive: Reg Rate and Rhythm Lungs: Positive: clear to auscultation Neuro: Positive: Grossly Intact Abdomen: /Rectal: Normal Prostate, No Masses Skin: Musculoskeletal: No Fluid Collection, No Pain, Normal Range of Motion Gait: Normal Gait Extremities: - Imaging and Cardiology Echo: report reviewed (03/02/2019 normal lv function moderate lvh, mild mr and mild tr and normal rvsp) - Telemetry EKG Rhythm: Sinus Tachycardia
--- NOTE | 2019-03-04 11:32 | Progress Note ---
Subjective Principal diagnosis: cp Interval history: Patient was seen today for follow-up on multiple renal related issues Events of this hospitalization were noted Blood pressure control is improving Interdisciplinary notes were also reviewed Vitals intake output medications were reviewed Past medical history: Reviewed Family, social history: Reviewed Allergies: Reviewed Physical examination General: No acute distress Vitals: Reviewed HEENT: Oral mucosa moist no icterus Neck: Supple no thyromegaly nodular mass or JVD Chest: Clear to auscultation anteriorly Heart: Regular rate and rhythm S1-S2 heard no S3-S4 Abdomen: Soft nontender no suprapubic masses no organomegaly Extremity: Dry skin less than 1+ edema Psych: No evidence of any agitation and aggression noted Derm: No petechial rash Assessment and plan: Renal failure likely due to uncontrolled hypertension needs close monitoring if renal function is stable consider adding losartan Hypokalemia currently being replaced follow-up on aldosterone and plasma renin level Long-standing history of hypertension patient has not been able to take his medications, is very high risk for progression of renal failure over time to end-stage renal disease this has been discussed with the patient Will need to check his urine for any evidence of wasting He has been placed on Aldactone with improvement in blood pressure Will follow up tomorrow morning may consider adding losartan All renal related issues were discussed with the patient, patient does exhibit good understanding, lab results were also discussed with patient in simple Ivorian Prognosis: Guarded We'll continue to follow and make recommendation from renal standpoint Objective - Vital Signs Vital signs: Vital Signs - 12hr 03/04/19 03/04/19 03/04/19 00:00 00:10 00:17 Temperature 99.3 F Pulse Rate 101 H 100 H Respiratory 28 H 14 Rate Blood Pressure 147/93 147/93 O2 Sat by Pulse 94 97 Oximetry 03/04/19 03/04/19 03/04/19 00:21 00:27 00:30 Temperature Pulse Rate 103 H 102 H 100 H Respiratory 20 Rate Blood Pressure 143/97 149/100 O2 Sat by Pulse 98 Oximetry 03/04/19 03/04/19 03/04/19 01:00 01:30 02:00 Temperature Pulse Rate 101 H 103 H 101 H Respiratory 25 H 30 H 32 H Rate Blood Pressure 151/100 150/100 144/100 O2 Sat by Pulse 97 98 98 Oximetry 03/04/19 03/04/19 03/04/19 02:30 03:00 03:30 Temperature Pulse Rate 109 H Respiratory 14 21 31 H Rate Blood Pressure 154/104 163/107 163/108 O2 Sat by Pulse 98 97 96 Oximetry 03/04/19 03/04/19 03/04/19 04:00 04:22 04:30 Temperature Pulse Rate 109 H 112 H 110 H Respiratory 15 21 Rate Blood Pressure 161/112 161/112 171/117 O2 Sat by Pulse 97 97 Oximetry 03/04/19 03/04/19 03/04/19 04:34 04:46 05:00 Temperature 98.8 F Pulse Rate 113 H 111 H Respiratory 28 H Rate Blood Pressure 174/115 O2 Sat by Pulse 96 Oximetry 03/04/19 03/04/19 03/04/19 05:26 05:30 06:00 Temperature Pulse Rate 117 H 115 H 107 H Respiratory 16 24 Rate Blood Pressure 174/115 180/107 171/97 O2 Sat by Pulse 96 94 Oximetry 03/04/19 03/04/19 03/04/19 06:30 07:00 07:30 Temperature Pulse Rate 116 H 120 H 110 H Respiratory 21 17 17 Rate Blood Pressure 161/98 175/98 155/93 O2 Sat by Pulse 92 97 97 Oximetry 03/04/19 03/04/19 03/04/19 08:00 08:30 09:00 Temperature 99.3 F Pulse Rate 117 H 111 H 113 H Respiratory 22 18 19 Rate Blood Pressure 176/107 158/103 155/100 O2 Sat by Pulse 96 97 97 Oximetry 03/04/19 03/04/19 03/04/19 09:01 09:02 09:03 Temperature Pulse Rate 115 H 115 H 115 H Respiratory Rate Blood Pressure 155/100 155/100 155/100 O2 Sat by Pulse Oximetry 03/04/19 03/04/19 03/04/19 09:04 09:30 10:00 Temperature Pulse Rate 115 H 112 H 112 H Respiratory 14 13 Rate Blood Pressure 155/100 144/95 154/95 O2 Sat by Pulse 96 97 Oximetry 03/04/19 03/04/19 10:01 10:30 Temperature Pulse Rate 112 H Respiratory 15 22 Rate Blood Pressure 160/102 O2 Sat by Pulse 96 Oximetry - Lab 03/05/19 06:42 03/05/19 06:42 Most recent lab results Calcium 7.4 mg/dL (8.4-10.2) L 03/03/19 03:19 Medications & Allergies - Medications Allergies/Adverse Reactions: Allergies ants Allergy (Uncoded 01/24/16 10:50) Swelling Home Medications: Home Medications Medication Instructions Recorded Confirmed Last Taken Type Lisinopril/Hydrochlorothiazide 1 tab PO QDAY #30 tab 06/15/15 03/03/19 Unknown Rx [Zestoretic 20-25 mg] cloNIDine [Catapres] 0.1 mg PO DAILY #30 tablet 01/30/16 03/03/19 Unknown Rx hydrALAZINE [Apresoline TAB] 25 mg PO TID #90 tablet 01/30/16 03/03/19 Unknown Rx Active Medications: Generic Name Dose Route Start Last Admin Trade Name Freq PRN Reason Stop Dose Admin Acetaminophen 650 mg 03/03/19 03:02 03/04/19 10:01 Tylenol PO 650 mg Q4H PRN Administration Pain MILD(1-3)/Fever >100.5/DOWNS Aspirin 325 mg 03/04/19 10:00 03/04/19 09:04 Ecotrin PO 325 mg QDAY EFRAIN Administration Atorvastatin Calcium 40 mg 03/03/19 22:00 03/03/19 21:42 Lipitor PO 40 mg QHS EFRAIN Administration Clonidine HCl 0.3 mg 03/04/19 14:00 Catapres PO TID EFRAIN Dextrose 50 ml 03/03/19 10:00 D50w (25gm) Syringe IV Q1H PRN Hypoglycemia Docusate Sodium 100 mg 03/03/19 10:00 03/04/19 09:02 Colace PO 100 mg BID EFRAIN Administration Famotidine 20 mg 03/04/19 10:00 03/04/19 09:03 Pepcid PO 20 mg DAILY EFRAIN Administration Heparin Sodium (Porcine) 5,000 unit 03/03/19 14:00 03/04/19 05:26 Heparin SUB-Q 5,000 unit Q8HR EFRAIN Administration Hydralazine HCl 10 mg 03/03/19 12:00 03/04/19 09:01 Apresoline IV 03/05/19 11:59 10 mg Q4H EFRAIN Administration Hydralazine HCl 100 mg 03/04/19 11:02 Apresoline PO Q8HR EFRAIN Nicardipine HCl 50 mg/ Sodium 250 mls @ 25 mls/hr 03/03/19 07:00 03/03/19 13:00 Chloride IV 0 mg/hr TITR EFRAIN 0 mls/hr Titration Protocol 5 MG/HR Insulin Human Regular 0 units 03/03/19 16:30 03/04/19 08:35 Humulin R SUB-Q Not Given ACHS EFRAIN Protocol Isosorbide Mononitrate 30 mg 03/04/19 12:00 Imdur PO QDAY EFRAIN Metoprolol Tartrate 50 mg 03/04/19 14:00 Lopressor PO TID EFRAIN Ondansetron HCl 4 mg 03/03/19 03:02 Zofran IV Q8H PRN Nausea And Vomiting Sodium Chloride 10 ml 03/03/19 10:00 03/04/19 09:04 Sodium Chloride Flush Syringe 10 Ml IV 10 ml BID EFRAIN Administration Sodium Chloride 10 ml 03/03/19 03:02 Sodium Chloride Flush Syringe 10 Ml IV PRN PRN LINE FLUSH Spironolactone 50 mg 03/03/19 14:00 03/04/19 09:03 Aldactone PO 50 mg QDAY EFRAIN Administration
--- NOTE | 2019-03-04 11:36 | Progress Note ---
Assessment and Plan Hypertensive emergency. Uncontrolled hypertension. Morbid obesity. Diabetes. Hyperlipidemia. History of gout. Leukocytosis, suspect stress leukocytosis. Acute possibly on chronic kidney injury. Hypokalemia. Non-ST elevation myocardial infarction, probably due to demand ischemia - continue oral antihypertensive regimen - weight loss counseled - continued weight loss encouraged - GI & VTE prophylaxis - tobacco abstinence counseled - continue other care per attending / other consultants ... re-evaluate in am & prn Subjective Date of service: 03/04/19 Principal diagnosis: Hypertensive emergency; Morbid obesity; DM II; ALEX; NSTEMI Interval history: Patient is seen today for: Hypertensive emergency; Morbid obesity; DM II; Hyperlipidemia; Gout; Leukocytosis; Acute possibly on chronic kidney injury; NST AMINA Seen and examined at bedside; 24hour events reviewed; nursing and respiratory care staff consulted; no adverse overnight events reported to me; resting peacefully in bed; no N/V/F/C; no chest pains or palpitations Objective Vital Signs - 12hr 03/04/19 03/04/19 03/04/19 00:00 00:10 00:17 Temperature 99.3 F Pulse Rate 101 H 100 H Respiratory 28 H 14 Rate Blood Pressure 147/93 147/93 O2 Sat by Pulse 94 97 Oximetry 03/04/19 03/04/19 03/04/19 00:21 00:27 00:30 Temperature Pulse Rate 103 H 102 H 100 H Respiratory 20 Rate Blood Pressure 143/97 149/100 O2 Sat by Pulse 98 Oximetry 03/04/19 03/04/19 03/04/19 01:00 01:30 02:00 Temperature Pulse Rate 101 H 103 H 101 H Respiratory 25 H 30 H 32 H Rate Blood Pressure 151/100 150/100 144/100 O2 Sat by Pulse 97 98 98 Oximetry 03/04/19 03/04/19 03/04/19 02:30 03:00 03:30 Temperature Pulse Rate 109 H Respiratory 14 21 31 H Rate Blood Pressure 154/104 163/107 163/108 O2 Sat by Pulse 98 97 96 Oximetry 03/04/19 03/04/19 03/04/19 04:00 04:22 04:30 Temperature Pulse Rate 109 H 112 H 110 H Respiratory 15 21 Rate Blood Pressure 161/112 161/112 171/117 O2 Sat by Pulse 97 97 Oximetry 03/04/19 03/04/19 03/04/19 04:34 04:46 05:00 Temperature 98.8 F Pulse Rate 113 H 111 H Respiratory 28 H Rate Blood Pressure 174/115 O2 Sat by Pulse 96 Oximetry 03/04/19 03/04/19 03/04/19 05:26 05:30 06:00 Temperature Pulse Rate 117 H 115 H 107 H Respiratory 16 24 Rate Blood Pressure 174/115 180/107 171/97 O2 Sat by Pulse 96 94 Oximetry 03/04/19 03/04/19 03/04/19 06:30 07:00 07:30 Temperature Pulse Rate 116 H 120 H 110 H Respiratory 21 17 17 Rate Blood Pressure 161/98 175/98 155/93 O2 Sat by Pulse 92 97 97 Oximetry 03/04/19 03/04/19 03/04/19 08:00 08:30 09:00 Temperature 99.3 F Pulse Rate 117 H 111 H 113 H Respiratory 22 18 19 Rate Blood Pressure 176/107 158/103 155/100 O2 Sat by Pulse 96 97 97 Oximetry 03/04/19 03/04/19 03/04/19 09:01 09:02 09:03 Temperature Pulse Rate 115 H 115 H 115 H Respiratory Rate Blood Pressure 155/100 155/100 155/100 O2 Sat by Pulse Oximetry 03/04/19 03/04/19 03/04/19 09:04 09:30 10:00 Temperature Pulse Rate 115 H 112 H 112 H Respiratory 14 13 Rate Blood Pressure 155/100 144/95 154/95 O2 Sat by Pulse 96 97 Oximetry 03/04/19 03/04/19 10:01 10:30 Temperature Pulse Rate 112 H Respiratory 15 22 Rate Blood Pressure 160/102 O2 Sat by Pulse 96 Oximetry Constitutional: no acute distress, alert, other (young obese AAM, normocephalic and atraumatic) Eyes: non-icteric ENT: oropharynx moist Neck: supple, no lymphadenopathy, no JVD, other (large neck circumference) Effort: normal Ascultation: Bilateral: clear Percussion: Bilateral: not dull Cardiovascular: regular rate and rhythm Gastrointestinal: normoactive bowel sounds, soft, non-tender, non-distended Integumentary: normal Extremities: no cyanosis, no edema, pulses normal, no ischemia or petechiae Neurologic: normal mental status, non-focal exam, pupils equal and round, CN II- XII normal, motor strength normal and Psychiatric: mood appropriate, affect normal CBC and BMP: 03/05/19 06:42 03/05/19 06:42 ABG, PT/INR, D-dimer: PT/INR, D-dimer PT 13.4 Sec. (12.2-14.9) 03/03/19 06:44 INR 1.05 (0.87-1.13) 03/03/19 06:44 D-Dimer 1549.97 ng/mlDDU (0-234) H 03/02/19 23:54 Abnormal lab findings: Abnormal Labs 03/02/19 03/02/19 03/02/19 23:54 23:54 23:54 WBC 13.0 H RBC 5.59 H MCV 77 L MCH 25 L RDW 18.2 H [place] % (Auto) 9.8 H [place] # 1.3 H Seg Neutrophils % Seg Neutrophils # 8.2 H D-Dimer 1549.97 H Potassium 2.8 L* Chloride BUN 21 H Creatinine 2.5 H Glucose 128 H POC Glucose Calcium 7.4 L Troponin T 0.042 H NT-Pro-B Natriuret Pep Triglycerides 161 H Cholesterol 238 H LDL Cholesterol Direct 181 H HDL Cholesterol 27 L 03/02/19 03/03/19 03/03/19 23:54 03:19 03:19 WBC 13.2 H RBC 5.68 H MCV 77 L MCH 25 L RDW 18.2 H [place] % (Auto) [place] # 1.0 H Seg Neutrophils % 71.8 H Seg Neutrophils # 9.5 H D-Dimer Potassium Chloride BUN Creatinine Glucose POC Glucose Calcium Troponin T 0.033 H D NT-Pro-B Natriuret Pep 1100 H Triglycerides Cholesterol LDL Cholesterol Direct HDL Cholesterol 03/03/19 03/03/19 03/03/19 03:19 10:23 17:05 WBC RBC MCV MCH RDW [place] % (Auto) [place] # Seg Neutrophils % Seg Neutrophils # D-Dimer Potassium 2.8 L* Chloride 94.2 L BUN Creatinine 2.4 H Glucose 132 H POC Glucose 133 H 149 H Calcium 7.4 L Troponin T NT-Pro-B Natriuret Pep Triglycerides Cholesterol LDL Cholesterol Direct HDL Cholesterol 03/03/19 03/04/19 21:41 07:52 WBC RBC MCV MCH RDW [place] % (Auto) [place] # Seg Neutrophils % Seg Neutrophils # D-Dimer Potassium Chloride BUN Creatinine Glucose POC Glucose 116 H 117 H Calcium Troponin T NT-Pro-B Natriuret Pep Triglycerides Cholesterol LDL Cholesterol Direct HDL Cholesterol Chest x-ray: image reviewed Allied health notes reviewed: nursing
[2019-03-04] MEDS: IMDUR PO SCH (11:58)
[2019-03-04] MEDS: METOPROLOL PO SCH ×2 (14:13→22:22)
--- NOTE | 2019-03-04 14:25 | Consultation ---
PULMONARY CRITICAL CARE CONSULT NOTE CONSULTING PHYSICIAN: Dr. Holden. REASON FOR CONSULTATION: Hypertensive emergency, critical care management. CHIEF COMPLAINT AND HISTORY OF PRESENT ILLNESS: The patient is a 33-year-old -[place] male with past medical history significant for hypertension and being morbidly obese came into the Emergency Room complaining of some midsternal, nonradiating chest pain. It had been going on for about a week. It was worse on the day of presentation. It appeared to be worse at night. It worsens with exertion. He denied fevers, chills. He denied cough or expectoration. Denied any hemoptysis. He denied palpitation. He admitted to not being compliant with his medications. He denied tobacco use or illicit drug use or abuse. He reportedly does not have a primary care physician. He was evaluated in the Emergency Room, amongst other things, he was found to be significantly hypertensive with systolic blood pressures as high as 221 and diastolic of 150 mmHg. He was started on a Cardene drip and ultimately transferred to the Critical Care Unit where I stopped by to see him. When I stopped by to see him, he was resting in bed, feeling a little bit better. His symptoms were better. He was on 10 mg per hour of Cardene drip. He denied nausea or vomiting. He denied fevers or chills. He denied any new onset leg pain or swelling either unilaterally or bilaterally or any suggestion of a deep venous thrombosis. This really is as much of the history of presentation as I have. PAST MEDICAL HISTORY: Hypertension, diabetes, morbid obesity. PAST SURGICAL HISTORY: Denies. MEDICATIONS: He was on at the time I stopped by to see him were reviewed. Pertinent medications included the following: He was on Tylenol 650 mg p.o. q.4 hours p.r.n. mild pain or fevers, Norvasc 5 mg p.o. daily, aspirin 325 mg p.o. daily, Lipitor 40 mg p.o. at bedtime, Coreg 12.5 mg p.o. b.i.d., clonidine 0.1 mg p.o. b.i.d., Pepcid 20 mg p.o. daily, heparin 5000 units subcutaneous q.8 hours, hydralazine 50 mg p.o. q.8 hours, nicardipine drip going at 10 mg per hour, insulin via sliding scale, Zofran 4 mg IV q.8 hours p.r.n. nausea and vomiting and topical nitroglycerin 2% patch 1 inch to skin q.i.d. scheduled. ALLERGIES: No known drug allergies. He is allergic to ANTS. DIET: Obese gentleman. Denies acute weight loss or gain in the preceding few weeks to months. FAMILY AND SOCIAL HISTORY: Lives in the community. Denies alcohol, tobacco or illicit drug use or abuse. There is a family history of coronary artery disease in his brother and hypertension. Family history otherwise noncontributory. REVIEW OF SYSTEMS: No loss of consciousness. No new onset seizures. No new onset focal weakness. No gross hematochezia or melena. No gross hematuria or dysuria. No hematemesis. No hemoptysis, no palpitations. He did have the chest pain. He also had dyspnea on exertion. He denied orthopnea. Denied paroxysmal nocturnal dyspnea. He denied heat or cold intolerance. He denies polydipsia, polyuria. Complete 13-system review of systems obtained. Pertinent positives and/or negatives as in body of history above, otherwise noncontributory. PHYSICAL EXAMINATION: VITAL SIGNS: On examination at presentation low-grade fever, temperature 99.0 degrees Fahrenheit, with a pulse of 108, respiratory rate of 20, blood pressure 212/164, O2 sats were 96%, inspired oxygen concentration at the time was not recorded. When I stopped by to see him, O2 sats were 98% that was on room air. GENERAL: Young, obese -Danish male. Normocephalic, atraumatic, talking to me in full sentences without overt respiratory distress at rest. HEAD, EYES, EARS, NOSE AND THROAT: Anicteric. No conjunctival erythema. Oropharynx is moist. Mallampati #3 oropharynx. Large neck circumference. No gross jugular venous distention, no thyromegaly. Grossly, no palpable lymph nodes in the supraclavicular or submandibular lymph node chains. LUNGS: Auscultation of both lung amin unremarkable. Lungs were clear bilaterally with good bilateral air movement. HEART: Heart sounds 1 and 2 were heard. They were regular in rate and rhythm at the time of my evaluation, without overt rubs or murmurs. ABDOMEN: Soft, full, bowel sounds are positive, nontender. No palpable hepatosplenomegaly. EXTREMITIES: Without overt digital clubbing, no cyanosis, no pedal edema. Pedal pulses are 2+ bilaterally. NEUROLOGIC: Pupils are equal, round, about 4 mm, reactive to light. Extraocular muscle movements are intact. He moves all 4 extremities spontaneously. SKIN: Normal turgor, without overt cellulitis or rash. PSYCHIATRIC: His mood is normal. His affect was appropriate. LABORATORY DATA: From my review are as follows: Admission white cell count 13,000, hemoglobin 13.8, hematocrit 42.9, platelet count 300. No manual differential. INR was 1.05. D-dimer was elevated at 1550. Serum sodium was 142, potassium 2.8, chloride 98, bicarbonate 29, BUN 21, creatinine 2.5, glucose was 128. Calcium 7.4. Troponin 0.042. BNP 1100. LDL cholesterol 181. The creatinine was down to 2.4 at the time of my evaluation. No microbiology studies. Chest x-ray was reviewed. I have also reviewed the radiologist's interpretation. Increased interstitial markings, probably accentuated by lung shadows, element of hypoventilation. No focal infiltrate that I can really see. Some areas of atelectasis. A V/Q scan was done. It was read as a low probability for pulmonary emboli. A 2D echocardiogram has also been done. It shows ejection fraction 50-55%. However, diastolic dysfunction consistent with impaired relaxation. RV systolic function appears to be normal. ASSESSMENT: 1. Hypertensive emergency. 2. Uncontrolled hypertension. 3. Morbid obesity. 4. Diabetes. 5. Hyperlipidemia. 6. History of gout. 7. Leukocytosis, suspect stress leukocytosis. 8. Acute possibly on chronic kidney injury. 9. Hypokalemia. 10. Non-ST elevation myocardial infarction, probably due to demand ischemia. PLAN: I will schedule hydralazine IV 10 mg IV q.4 hours with hold parameters for systolic blood pressures less than 140. We will aggressively wean him off the Cardene drip and continue to introduce oral medications. He likely has an element of chronic kidney disease. Human Resources Operations Manager has been consulted and I will defer to the zigzag elastic attacher in terms of the management. He is nonoliguric at this time. Cardiology evaluation is also ongoing. I will defer to them. Gentle hydration in the short time. Potassium has been supplemented. He is appropriately on GI prophylaxis as well as DVT prophylaxis. Flu and pneumonia vaccination will be addressed per protocol. Better medication compliance has been strongly counseled. Continued tobacco abstinence has been encouraged. At this time, I spent about 30-35 minutes of critical care time without overlap and excluding any procedural time that may be necessary. He is critically ill on life-sustaining interventions including the vasopressors at high risk of deterioration including the risk of . JOB# [id number] SALONI/GILBERT MERCADO
--- NOTE | 2019-03-04 21:45 | Ultrasound Report ---
ULTRASOUND RENAL INDICATION: renal failure hypertension. COMPARISON: No relevant prior imaging study available. FINDINGS: RIGHT KIDNEY: Size: 10.9 cm. Echogenicity: Normal. Cortical thickness: 1.3. Hydronephrosis: None. Cyst or mass: None. Stones: None. LEFT KIDNEY: Size: 10.8 cm. Echogenicity: Normal. Cortical thickness: 1.5. Hydronephrosis: None. Cyst or mass: None. Stones: None. Urinary Bladder: No significant abnormality. Free Fluid: None. Additional Findings: None. IMPRESSION 1. No acute sonographic abnormality of the kidneys. Signer Name: Phil Gomes MD Signed: 03/04/2019 9:41 PM Workstation Name: [id number]
[2019-03-04] MEDS ORDERED: METOPROLOL PO SCH (22:00)
[2019-03-05] MEDS: APRESOLINE IV SCH ×3 (01:00→09:03)
[2019-03-05] MEDS: APRESOLINE PO SCH ×3 (06:14→21:18)
[2019-03-05] MEDS: HEPARIN SUB-Q SCH ×3 (06:17→21:14)
[2019-03-05 07:30] LABS: Basophils # (Auto) 0.1 K/mm3 (0.0-0.1); Basophils % (Auto) 0.5 % (0.0-1.8); Eosinophils # (Auto) 0.5 K/mm3 (0.0-0.4); Eosinophils % (Auto) 3.6 % (0.0-4.3); Hematocrit 39.6 % (35.5-45.6); Hemoglobin 12.8 gm/dl (11.8-15.2); Lymphocytes # (Auto) 3.4 K/mm3 (1.2-5.4); Lymphocytes % (Auto) 24.5 % (13.4-35.0); Mean Corpuscular HGB Conc 32 % (32-34); Mean Corpuscular Volume 76 fl (84-94); Monocytes # (Auto) 1.2 K/mm3 (0.0-0.8); Monocytes % (Auto) 8.7 % (0.0-7.3); Platelet Count 339 K/mm3 (140-440); Red Blood Count 5.19 M/mm3 (3.65-5.03); Red Cell Distribution Width 17.6 % (13.2-15.2)
[2019-03-05 07:41] LABS: Calcium 7.6 mg/dL (8.4-10.2)
[2019-03-05] MEDS: CATAPRES PO SCH ×3 (08:25→20:37)
[2019-03-05] MEDS: METOPROLOL PO SCH ×3 (08:26→20:38)
[2019-03-05] MEDS: HumuLIN R SUB-Q SCH ×4 (08:36→23:43)
[2019-03-05] MEDS ORDERED: K-DUR PO ONE ×2 (09:00→12:00)
--- NOTE | 2019-03-05 10:02 | Progress Note ---
Assessment and Plan cp htn urgency nstemi type 2 dm obeisty non compliance acute on chronic renal failure hypokalemia rec: Advised patient to ambulate patient is currently chest pain-free patient is mildly sinus tachycardia and elevated blood pressure is on metoprolol 50 mg 3 times a day along with hydralazine 50mg 3 times a day as per renal. We will do a Lexiscan nuclear stress test for ischemic in view abnormal troponin and chest pain in a Subjective Date of service: 03/05/19 Principal diagnosis: cp Interval history: pt states feeling better Objective Vital Signs Temp Pulse Resp BP Pulse Ox 03/05/19 09:03 112 H 159/101 03/05/19 08:26 112 H 159/101 03/05/19 08:25 112 H 159/101 03/05/19 07:40 98.4 F 112 H 20 159/101 95 03/05/19 06:14 160/100 03/05/19 06:12 160/100 03/05/19 04:46 159/1 03/05/19 04:00 104 H 96 03/05/19 03:42 98.8 F 18 159/100 03/05/19 01:00 96 H 139/66 03/04/19 23:08 98.3 F 96 H 18 139/86 95 03/04/19 20:35 93 H 03/04/19 20:04 95 03/04/19 19:02 98.4 F 93 H 18 117/74 93 03/04/19 16:22 96 H 132/83 03/04/19 15:32 98.3 F 96 H 20 132/83 94 03/04/19 15:00 144/92 95 03/04/19 14:30 107 H 14 172/112 97 03/04/19 14:13 107 H 154/88 03/04/19 14:12 106 H 154/88 03/04/19 14:00 97 H 22 154/88 96 03/04/19 13:30 100 H 20 157/89 95 03/04/19 13:00 106 H 21 155/85 95 03/04/19 12:30 99 H 33 H 156/94 97 03/04/19 12:00 97 H 10 L 145/91 96 03/04/19 11:59 97 H 133/86 03/04/19 11:58 98 H 133/86 03/04/19 11:30 100 H 23 133/86 95 03/04/19 11:00 108 H 12 150/101 95 03/04/19 10:30 112 H 22 160/102 96 - Physical Examination General: Appears Well, No Apparent Distress HEENT: Positive: PERRL, EOMI Neck: Cardiac: Positive: Reg Rate and Rhythm Lungs: Positive: clear to auscultation Neuro: Positive: Grossly Intact Abdomen: /Rectal: Normal Prostate, No Masses Skin: Musculoskeletal: No Fluid Collection, No Pain, Normal Range of Motion Gait: Normal Gait Extremities: - Labs and Meds CBC 03/05/19 Range/Units 06:42 WBC 14.0 H (4.5-11.0) K/mm3 RBC 5.19 H (3.65-5.03) M/mm3 Hgb 12.8 (11.8-15.2) gm/dl Hct 39.6 (35.5-45.6) % Plt Count 339 (140-440) K/mm3 Lymph # 3.4 (1.2-5.4) K/mm3 [place] # 1.2 H (0.0-0.8) K/mm3 Eos # 0.5 H (0.0-0.4) K/mm3 Baso # 0.1 (0.0-0.1) K/mm3 Comprehensive Metabolic Panel 03/05/19 Range/Units 06:42 Sodium 138 (137-145) mmol/L Potassium 2.8 L* (3.6-5.0) mmol/L Chloride 94.5 L (98-107) mmol/L Carbon Dioxide 25 (22-30) mmol/L BUN 24 H (9-20) mg/dL Creatinine 2.6 H (0.8-1.5) mg/dL Glucose 130 H (75-100) mg/dL Calcium 7.6 L (8.4-10.2) mg/dL - Imaging and Cardiology Echo: report reviewed (03/02/2019 normal lv function moderate lvh, mild mr and mild tr and normal rvsp) - Telemetry EKG Rhythm: Sinus Tachycardia
[2019-03-05] MEDS: ALDACTONE PO SCH (10:42)
[2019-03-05] MEDS: ECOTRIN PO SCH (10:42)
[2019-03-05] MEDS: COLACE PO SCH ×2 (10:42→21:13)
[2019-03-05] MEDS: PEPCID PO SCH (10:42)
[2019-03-05] MEDS: IMDUR PO SCH (10:43)
[2019-03-05] MEDS: SODIUM CHLORIDE FLUSH SYRINGE 10 ML IV SCH ×2 (10:43→21:14)
--- NOTE | 2019-03-05 10:49 | Progress Note ---
Assessment and Plan Assessment and plan: Accelerated hypertension. Etiology may be related his secondary hypertension. Follow-up plasma metanephrine/ aldosterone as well as plasma renin level. Continue Aldactone per nephrology. Acute on CKD. Patient with a baseline creatinine of 1.5 in 2016. Creatinine on this admission proximate 2.4. I suspect this acute on chronic related to long- standing history of hypertension, diabetes. Nephrology following. Hypokalemia. Replete potassium follow-up BMP in a.m. Diabetes mellitus type 2. Continue Accu-Cheks and sliding scale insulin. History of gout. Chest pain. Patient undergo Lexiscan in a.m. Cardiology following. Obesity. Patient has been counseled on importance of dietary modifications, weight loss and exercise. History Interval history: No new issues overnight. Hospitalist Physical - Constitutional Vitals: Temp Pulse Resp BP Pulse Ox 98.4 F 112 H 20 159/101 95 03/05/19 07:40 03/05/19 09:03 03/05/19 07:40 03/05/19 09:03 03/05/19 07:40 General appearance: Present: no acute distress - EENT Eyes: Present: PERRL, EOM intact ENT: hearing intact, clear oral mucosa, dentition normal - Neck Neck: Present: supple, normal ROM - Respiratory Respiratory effort: normal Respiratory: bilateral: CTA - Cardiovascular Rhythm: regular Heart Sounds: Present: S1 & S2. Absent: gallop, rub - Extremities Extremities: no ischemia, No edema, Full ROM - Abdominal General gastrointestinal: soft, non-tender, non-distended, normal bowel sounds - Integumentary Integumentary: Present: clear, warm, dry - Neurologic Neurologic: CNII-XII intact, moves all extremities Results - Labs CBC & Chem 7: 03/05/19 06:42 03/05/19 06:42 Labs: Laboratory Last Values WBC 14.0 K/mm3 (4.5-11.0) H 03/05/19 06:42 RBC 5.19 M/mm3 (3.65-5.03) H 03/05/19 06:42 Hgb 12.8 gm/dl (11.8-15.2) 03/05/19 06:42 Hct 39.6 % (35.5-45.6) 03/05/19 06:42 MCV 76 fl (84-94) L 03/05/19 06:42 MCH 25 pg (28-32) L 03/05/19 06:42 MCHC 32 % (32-34) 03/05/19 06:42 RDW 17.6 % (13.2-15.2) H 03/05/19 06:42 Plt Count 339 K/mm3 (140-440) 03/05/19 06:42 Lymph % (Auto) 24.5 % (13.4-35.0) 03/05/19 06:42 [place] % (Auto) 8.7 % (0.0-7.3) H 03/05/19 06:42 Eos % (Auto) 3.6 % (0.0-4.3) 03/05/19 06:42 Baso % (Auto) 0.5 % (0.0-1.8) 03/05/19 06:42 Lymph # 3.4 K/mm3 (1.2-5.4) 03/05/19 06:42 [place] # 1.2 K/mm3 (0.0-0.8) H 03/05/19 06:42 Eos # 0.5 K/mm3 (0.0-0.4) H 03/05/19 06:42 Baso # 0.1 K/mm3 (0.0-0.1) 03/05/19 06:42 Seg Neutrophils % 62.7 % (40.0-70.0) 03/05/19 06:42 Seg Neutrophils # 8.8 K/mm3 (1.8-7.7) H 03/05/19 06:42 PT 13.4 Sec. (12.2-14.9) 03/03/19 06:44 INR 1.05 (0.87-1.13) 03/03/19 06:44 APTT 32.3 Sec. (24.2-36.6) 03/03/19 06:44 D-Dimer 1549.97 ng/mlDDU (0-234) H 03/02/19 23:54 Sodium 138 mmol/L (137-145) 03/05/19 06:42 Potassium 2.8 mmol/L (3.6-5.0) L* 03/05/19 06:42 Chloride 94.5 mmol/L (98-107) L 03/05/19 06:42 Carbon Dioxide 25 mmol/L (22-30) 03/05/19 06:42 Anion Gap 21 mmol/L 03/05/19 06:42 BUN 24 mg/dL (9-20) H 03/05/19 06:42 Creatinine 2.6 mg/dL (0.8-1.5) H 03/05/19 06:42 Estimated GFR 35 ml/min 03/05/19 06:42 BUN/Creatinine Ratio 9 % 03/05/19 06:42 Glucose 130 mg/dL (75-100) H 03/05/19 06:42 POC Glucose 104 (70-105) 03/05/19 08:10 Uric Acid 11.5 mg/dL (3.5-7.6) H 03/04/19 14:04 Calcium 7.6 mg/dL (8.4-10.2) L 03/05/19 06:42 Troponin T 0.026 ng/mL (0.00-0.029) 03/03/19 05:30 NT-Pro-B Natriuret Pep 1100 pg/mL (0-450) H 03/02/19 23:54 Triglycerides 161 mg/dL (2-149) H 03/02/19 23:54 Cholesterol 238 mg/dL (50-199) H 03/02/19 23:54 LDL Cholesterol Direct 181 mg/dL (50-130) H 03/02/19 23:54 HDL Cholesterol 27 mg/dL (40-59) L 03/02/19 23:54 Cholesterol/HDL Ratio 8.81 % 03/02/19 23:54 Urine Creatinine 307.0 mg/dL (0.1-20.0) H 03/04/19 15:20 Urine Sodium 37 mmol/L 03/04/19 15:20 Urine Total Protein 98 mg/dL (5-11.8) H 03/04/19 15:20 Active Medications - Current Medications Current Medications: Generic Name Dose Route Start Last Admin Trade Name Freq PRN Reason Stop Dose Admin Acetaminophen 650 mg 03/03/19 03:02 03/04/19 10:01 Tylenol PO 650 mg Q4H PRN Administration Pain MILD(1-3)/Fever >100.5/DOWNS Aspirin 325 mg 03/04/19 10:00 03/04/19 09:04 Ecotrin PO 325 mg QDAY EFRAIN Administration Atorvastatin Calcium 40 mg 03/03/19 22:00 03/04/19 22:23 Lipitor PO 40 mg QHS EFRAIN Administration Clonidine HCl 0.3 mg 03/04/19 14:00 03/05/19 08:25 Catapres PO 0.3 mg TID EFRAIN Administration Dextrose 50 ml 03/03/19 10:00 D50w (25gm) Syringe IV Q1H PRN Hypoglycemia Docusate Sodium 100 mg 03/03/19 10:00 03/04/19 22:23 Colace PO 100 mg BID EFRAIN Administration Famotidine 20 mg 03/04/19 10:00 03/04/19 09:03 Pepcid PO 20 mg DAILY EFRAIN Administration Heparin Sodium (Porcine) 5,000 unit 03/03/19 14:00 03/05/19 06:17 Heparin SUB-Q 5,000 unit Q8HR EFRAIN Administration Hydralazine HCl 10 mg 03/03/19 12:00 03/05/19 09:03 Apresoline IV 03/05/19 11:59 10 mg Q4H EFRAIN Administration Hydralazine HCl 50 mg 03/04/19 14:00 03/05/19 06:14 Apresoline PO 50 mg Q8HR EFRAIN Administration Nicardipine HCl 50 mg/ Sodium 250 mls @ 25 mls/hr 03/03/19 07:00 03/03/19 13:00 Chloride IV 0 mg/hr TITR EFRAIN 0 mls/hr Titration Protocol 5 MG/HR Insulin Human Regular 0 units 03/03/19 16:30 03/05/19 08:36 Humulin R SUB-Q Not Given ACHS EFRAIN Protocol Isosorbide Mononitrate 30 mg 03/04/19 12:00 03/04/19 11:58 Imdur PO 30 mg QDAY EFRAIN Administration Metoprolol Tartrate 50 mg 03/04/19 14:00 03/05/19 08:26 Lopressor PO 50 mg TID EFRAIN Administration Ondansetron HCl 4 mg 03/03/19 03:02 Zofran IV Q8H PRN Nausea And Vomiting Potassium Chloride 40 meq 03/05/19 12:00 K-Dur PO 03/05/19 12:01 ONCE ONE Sodium Chloride 10 ml 03/03/19 10:00 03/04/19 22:24 Sodium Chloride Flush Syringe 10 Ml IV 10 ml BID EFRAIN Administration Sodium Chloride 10 ml 03/03/19 03:02 Sodium Chloride Flush Syringe 10 Ml IV PRN PRN LINE FLUSH Spironolactone 50 mg 03/03/19 14:00 03/04/19 09:03 Aldactone PO 50 mg QDAY EFRAIN Administration
--- NOTE | 2019-03-05 10:50 | Progress Note ---
Assessment and Plan Assessment and plan: Accelerated hypertension. Etiology may be related his secondary hypertension. Follow-up plasma metanephrine/ aldosterone as well as plasma renin level. Continue Aldactone per nephrology. Acute on CKD. Patient with a baseline creatinine of 1.5 in 2016. Creatinine on this admission proximate 2.4. I suspect this acute on chronic related to long- standing history of hypertension, diabetes. Nephrology consulted Hypokalemia. Replete potassium follow-up BMP in a.m. Diabetes mellitus type 2. Continue Accu-Cheks and sliding scale insulin. History of gout. Chest pain. Patient undergo Lexiscan Wednesday. Cardiology following. Obesity. Patient has been counseled on importance of dietary modifications, weight loss and exercise. History Interval history: No new issues overnight. Hospitalist Physical - Constitutional Vitals: Temp Pulse Resp BP Pulse Ox 98.5 F 104 H 20 143/91 94 03/05/19 10:42 03/05/19 10:43 03/05/19 10:42 03/05/19 10:43 03/05/19 10:42 General appearance: Present: no acute distress, obese - EENT Eyes: Present: PERRL, EOM intact ENT: hearing intact, clear oral mucosa, dentition normal - Neck Neck: Present: supple, normal ROM - Respiratory Respiratory effort: normal Respiratory: bilateral: CTA - Cardiovascular Rhythm: regular Heart Sounds: Present: S1 & S2. Absent: gallop, rub - Extremities Extremities: no ischemia, No edema, Full ROM - Abdominal General gastrointestinal: soft, non-tender, non-distended, normal bowel sounds - Integumentary Integumentary: Present: clear, warm, dry - Neurologic Neurologic: CNII-XII intact, moves all extremities Results - Labs CBC & Chem 7: 03/05/19 06:42 03/05/19 06:42 Labs: Laboratory Last Values WBC 14.0 K/mm3 (4.5-11.0) H 03/05/19 06:42 RBC 5.19 M/mm3 (3.65-5.03) H 03/05/19 06:42 Hgb 12.8 gm/dl (11.8-15.2) 03/05/19 06:42 Hct 39.6 % (35.5-45.6) 03/05/19 06:42 MCV 76 fl (84-94) L 03/05/19 06:42 MCH 25 pg (28-32) L 03/05/19 06:42 MCHC 32 % (32-34) 03/05/19 06:42 RDW 17.6 % (13.2-15.2) H 03/05/19 06:42 Plt Count 339 K/mm3 (140-440) 03/05/19 06:42 Lymph % (Auto) 24.5 % (13.4-35.0) 03/05/19 06:42 [place] % (Auto) 8.7 % (0.0-7.3) H 03/05/19 06:42 Eos % (Auto) 3.6 % (0.0-4.3) 03/05/19 06:42 Baso % (Auto) 0.5 % (0.0-1.8) 03/05/19 06:42 Lymph # 3.4 K/mm3 (1.2-5.4) 03/05/19 06:42 [place] # 1.2 K/mm3 (0.0-0.8) H 03/05/19 06:42 Eos # 0.5 K/mm3 (0.0-0.4) H 03/05/19 06:42 Baso # 0.1 K/mm3 (0.0-0.1) 03/05/19 06:42 Seg Neutrophils % 62.7 % (40.0-70.0) 03/05/19 06:42 Seg Neutrophils # 8.8 K/mm3 (1.8-7.7) H 03/05/19 06:42 PT 13.4 Sec. (12.2-14.9) 03/03/19 06:44 INR 1.05 (0.87-1.13) 03/03/19 06:44 APTT 32.3 Sec. (24.2-36.6) 03/03/19 06:44 D-Dimer 1549.97 ng/mlDDU (0-234) H 03/02/19 23:54 Sodium 138 mmol/L (137-145) 03/05/19 06:42 Potassium 2.8 mmol/L (3.6-5.0) L* 03/05/19 06:42 Chloride 94.5 mmol/L (98-107) L 03/05/19 06:42 Carbon Dioxide 25 mmol/L (22-30) 03/05/19 06:42 Anion Gap 21 mmol/L 03/05/19 06:42 BUN 24 mg/dL (9-20) H 03/05/19 06:42 Creatinine 2.6 mg/dL (0.8-1.5) H 03/05/19 06:42 Estimated GFR 35 ml/min 03/05/19 06:42 BUN/Creatinine Ratio 9 % 03/05/19 06:42 Glucose 130 mg/dL (75-100) H 03/05/19 06:42 POC Glucose 104 (70-105) 03/05/19 08:10 Uric Acid 11.5 mg/dL (3.5-7.6) H 03/04/19 14:04 Calcium 7.6 mg/dL (8.4-10.2) L 03/05/19 06:42 Troponin T 0.026 ng/mL (0.00-0.029) 03/03/19 05:30 NT-Pro-B Natriuret Pep 1100 pg/mL (0-450) H 03/02/19 23:54 Triglycerides 161 mg/dL (2-149) H 03/02/19 23:54 Cholesterol 238 mg/dL (50-199) H 03/02/19 23:54 LDL Cholesterol Direct 181 mg/dL (50-130) H 03/02/19 23:54 HDL Cholesterol 27 mg/dL (40-59) L 03/02/19 23:54 Cholesterol/HDL Ratio 8.81 % 03/02/19 23:54 Urine Creatinine 307.0 mg/dL (0.1-20.0) H 03/04/19 15:20 Urine Sodium 37 mmol/L 03/04/19 15:20 Urine Total Protein 98 mg/dL (5-11.8) H 03/04/19 15:20 Active Medications - Current Medications Current Medications: Generic Name Dose Route Start Last Admin Trade Name Freq PRN Reason Stop Dose Admin Acetaminophen 650 mg 03/03/19 03:02 03/04/19 10:01 Tylenol PO 650 mg Q4H PRN Administration Pain MILD(1-3)/Fever >100.5/DOWNS Aspirin 325 mg 03/04/19 10:00 03/05/19 10:42 Ecotrin PO 325 mg QDAY EFRAIN Administration Atorvastatin Calcium 40 mg 03/03/19 22:00 03/04/19 22:23 Lipitor PO 40 mg QHS EFRAIN Administration Clonidine HCl 0.3 mg 03/04/19 14:00 03/05/19 08:25 Catapres PO 0.3 mg TID EFRAIN Administration Dextrose 50 ml 03/03/19 10:00 D50w (25gm) Syringe IV Q1H PRN Hypoglycemia Docusate Sodium 100 mg 03/03/19 10:00 03/05/19 10:42 Colace PO 100 mg BID EFRAIN Administration Famotidine 20 mg 03/04/19 10:00 03/05/19 10:42 Pepcid PO 20 mg DAILY EFRAIN Administration Heparin Sodium (Porcine) 5,000 unit 03/03/19 14:00 03/05/19 06:17 Heparin SUB-Q 5,000 unit Q8HR EFRAIN Administration Hydralazine HCl 10 mg 03/03/19 12:00 03/05/19 09:03 Apresoline IV 03/05/19 11:59 10 mg Q4H EFRAIN Administration Hydralazine HCl 50 mg 03/04/19 14:00 03/05/19 06:14 Apresoline PO 50 mg Q8HR EFRAIN Administration Nicardipine HCl 50 mg/ Sodium 250 mls @ 25 mls/hr 03/03/19 07:00 03/03/19 13:00 Chloride IV 0 mg/hr TITR EFRAIN 0 mls/hr Titration Protocol 5 MG/HR Insulin Human Regular 0 units 03/03/19 16:30 03/05/19 08:36 Humulin R SUB-Q Not Given ACHS EFRAIN Protocol Isosorbide Mononitrate 30 mg 03/04/19 12:00 03/05/19 10:43 Imdur PO 30 mg QDAY EFRAIN Administration Metoprolol Tartrate 50 mg 03/04/19 14:00 03/05/19 08:26 Lopressor PO 50 mg TID EFRAIN Administration Ondansetron HCl 4 mg 03/03/19 03:02 Zofran IV Q8H PRN Nausea And Vomiting Potassium Chloride 40 meq 03/05/19 12:00 K-Dur PO 03/05/19 12:01 ONCE ONE Sodium Chloride 10 ml 03/03/19 10:00 03/05/19 10:43 Sodium Chloride Flush Syringe 10 Ml IV 10 ml BID EFRAIN Administration Sodium Chloride 10 ml 03/03/19 03:02 Sodium Chloride Flush Syringe 10 Ml IV PRN PRN LINE FLUSH Spironolactone 50 mg 03/03/19 14:00 03/05/19 10:42 Aldactone PO 50 mg QDAY EFRAIN Administration
--- NOTE | 2019-03-05 12:14 | Progress Note ---
Subjective Principal diagnosis: cp Interval history: Patient was seen today for follow-up on multiple renal related issues Events of this hospitalization were noted Blood pressure control is improving Interdisciplinary notes were also reviewed Vitals intake output medications were reviewed Past medical history: Reviewed Family, social history: Reviewed Allergies: Reviewed Physical examination General: No acute distress Vitals: Reviewed HEENT: Oral mucosa moist no icterus Neck: Supple no thyromegaly nodular mass or JVD Chest: Clear to auscultation anteriorly Heart: Regular rate and rhythm S1-S2 heard no S3-S4 Abdomen: Soft nontender no suprapubic masses no organomegaly Extremity: Dry skin less than 1+ edema Psych: No evidence of any agitation and aggression noted Derm: No petechial rash Assessment and plan: Renal failure likely due to uncontrolled hypertension needs close monitoring if renal function is stable consider adding losartan Hypokalemia currently being replaced follow-up on aldosterone and plasma renin level Ultrasonogram: Preserved echogenicity Check potassium creatinine ratio consider adding losartan at this time Proteinuria 221 mg by ratio All renal related issues were discussed with the patient, patient does exhibit good understanding, lab results were also discussed with patient in simple [place] Prognosis: Guarded We'll continue to follow and make recommendation from renal standpoint Objective - Vital Signs Vital signs: Vital Signs - 12hr 03/05/19 03/05/19 03/05/19 01:00 03:42 04:00 Temperature 98.8 F Pulse Rate 96 H 104 H Respiratory 18 Rate Blood Pressure 139/66 159/100 O2 Sat by Pulse 96 Oximetry 03/05/19 03/05/19 03/05/19 04:46 06:12 06:14 Temperature Pulse Rate Respiratory Rate Blood Pressure 159/1 160/100 160/100 O2 Sat by Pulse Oximetry 03/05/19 03/05/19 03/05/19 07:40 08:25 08:26 Temperature 98.4 F Pulse Rate 112 H 112 H 112 H Respiratory 20 Rate Blood Pressure 159/101 159/101 159/101 O2 Sat by Pulse 95 Oximetry 03/05/19 03/05/19 03/05/19 09:03 09:09 10:42 Temperature 98.5 F Pulse Rate 112 H 105 H Respiratory 18 20 Rate Blood Pressure 159/101 147/89 143/91 O2 Sat by Pulse 94 Oximetry 03/05/19 10:43 Temperature Pulse Rate 104 H Respiratory Rate Blood Pressure 143/91 O2 Sat by Pulse Oximetry - Lab 03/05/19 06:42 03/05/19 06:42 Most recent lab results Calcium 7.6 mg/dL (8.4-10.2) L 03/05/19 06:42 Urine Creatinine 307.0 mg/dL (0.1-20.0) H 03/04/19 15:20 Urine Sodium 37 mmol/L 03/04/19 15:20 Urine Total Protein 98 mg/dL (5-11.8) H 03/04/19 15:20 Medications & Allergies - Medications Allergies/Adverse Reactions: Allergies ants Allergy (Uncoded 01/24/16 10:50) Swelling Home Medications: Home Medications Medication Instructions Recorded Confirmed Last Taken Type Lisinopril/Hydrochlorothiazide 1 tab PO QDAY #30 tab 06/15/15 03/03/19 Unknown Rx [Zestoretic 20-25 mg] cloNIDine [Catapres] 0.1 mg PO DAILY #30 tablet 01/30/16 03/03/19 Unknown Rx hydrALAZINE [Apresoline TAB] 25 mg PO TID #90 tablet 01/30/16 03/03/19 Unknown Rx Active Medications: Generic Name Dose Route Start Last Admin Trade Name Freq PRN Reason Stop Dose Admin Acetaminophen 650 mg 03/03/19 03:02 03/04/19 10:01 Tylenol PO 650 mg Q4H PRN Administration Pain MILD(1-3)/Fever >100.5/DOWNS Aspirin 325 mg 03/04/19 10:00 03/05/19 10:42 Ecotrin PO 325 mg QDAY EFRAIN Administration Atorvastatin Calcium 40 mg 03/03/19 22:00 03/04/19 22:23 Lipitor PO 40 mg QHS EFRAIN Administration Clonidine HCl 0.3 mg 03/04/19 14:00 03/05/19 08:25 Catapres PO 0.3 mg TID EFRAIN Administration Dextrose 50 ml 03/03/19 10:00 D50w (25gm) Syringe IV Q1H PRN Hypoglycemia Docusate Sodium 100 mg 03/03/19 10:00 03/05/19 10:42 Colace PO 100 mg BID EFRAIN Administration Famotidine 20 mg 03/04/19 10:00 03/05/19 10:42 Pepcid PO 20 mg DAILY EFRAIN Administration Heparin Sodium (Porcine) 5,000 unit 03/03/19 14:00 03/05/19 06:17 Heparin SUB-Q 5,000 unit Q8HR EFRAIN Administration Hydralazine HCl 50 mg 03/04/19 14:00 03/05/19 06:14 Apresoline PO 50 mg Q8HR EFRAIN Administration Nicardipine HCl 50 mg/ Sodium 250 mls @ 25 mls/hr 03/03/19 07:00 03/03/19 13:00 Chloride IV 0 mg/hr TITR EFRAIN 0 mls/hr Titration Protocol 5 MG/HR Insulin Human Regular 0 units 03/03/19 16:30 03/05/19 08:36 Humulin R SUB-Q Not Given ACHS EFRAIN Protocol Isosorbide Mononitrate 30 mg 03/04/19 12:00 03/05/19 10:43 Imdur PO 30 mg QDAY EFRAIN Administration Losartan Potassium 50 mg 03/05/19 13:00 Cozaar PO QDAY EFRAIN Metoprolol Tartrate 50 mg 03/04/19 14:00 03/05/19 08:26 Lopressor PO 50 mg TID EFRAIN Administration Ondansetron HCl 4 mg 03/03/19 03:02 Zofran IV Q8H PRN Nausea And Vomiting Sodium Chloride 10 ml 03/03/19 10:00 03/05/19 10:43 Sodium Chloride Flush Syringe 10 Ml IV 10 ml BID EFRAIN Administration Sodium Chloride 10 ml 03/03/19 03:02 Sodium Chloride Flush Syringe 10 Ml IV PRN PRN LINE FLUSH Spironolactone 50 mg 03/03/19 14:00 03/05/19 10:42 Aldactone PO 50 mg QDAY EFRAIN Administration
[2019-03-05] MEDS: COZAAR PO SCH (12:46)
--- NOTE | 2019-03-05 13:39 | Progress Note ---
Assessment and Plan Hypertensive emergency. Uncontrolled hypertension. Morbid obesity. Diabetes. Hyperlipidemia. History of gout. Leukocytosis, suspect stress leukocytosis. Acute possibly on chronic kidney injury. Hypokalemia. Non-ST elevation myocardial infarction, probably due to demand ischemia - continue oral antihypertensive regimen - weight loss counseled - continued weight loss encouraged - GI & VTE prophylaxis - tobacco abstinence counseled - continue other care per attending / other consultants ... re-evaluate in am & prn Subjective Date of service: 03/05/19 Principal diagnosis: Hypertensive emergency; Morbid obesity; DM II; ALEX; NSTEMI Interval history: Patient is seen today for: Hypertensive emergency; Morbid obesity; DM II; Hyperlipidemia; Gout; Leukocytosis; Acute possibly on chronic kidney injury; NS HCON Seen and examined at bedside; 24hour events reviewed; nursing and respiratory care staff consulted; no adverse overnight events reported to me; resting peacefully in bed; denies acute chest pains; No N/V/F/C Objective Vital Signs - 12hr 03/05/19 03/05/19 03/05/19 03:42 04:00 04:46 Temperature 98.8 F Pulse Rate 104 H Respiratory 18 Rate Blood Pressure 159/100 159/1 O2 Sat by Pulse 96 Oximetry 03/05/19 03/05/19 03/05/19 06:12 06:14 07:40 Temperature 98.4 F Pulse Rate 112 H Respiratory 20 Rate Blood Pressure 160/100 160/100 159/101 O2 Sat by Pulse 95 Oximetry 03/05/19 03/05/19 03/05/19 08:25 08:26 09:03 Temperature Pulse Rate 112 H 112 H 112 H Respiratory Rate Blood Pressure 159/101 159/101 159/101 O2 Sat by Pulse Oximetry 03/05/19 03/05/19 03/05/19 09:09 10:42 10:43 Temperature 98.5 F Pulse Rate 105 H 104 H Respiratory 18 20 Rate Blood Pressure 147/89 143/91 143/91 O2 Sat by Pulse 94 Oximetry 03/05/19 03/05/19 03/05/19 11:35 12:00 12:46 Temperature Pulse Rate 109 H 104 H Respiratory 18 Rate Blood Pressure 143/91 O2 Sat by Pulse Oximetry Constitutional: no acute distress, alert, other (young obese AAM, normocephalic and atraumatic) Eyes: non-icteric ENT: oropharynx moist Neck: supple, no lymphadenopathy, no JVD, other (large neck circumference) Effort: normal Ascultation: Bilateral: clear Percussion: Bilateral: not dull Cardiovascular: regular rate and rhythm Gastrointestinal: normoactive bowel sounds, soft, non-tender, non-distended Integumentary: normal Extremities: no cyanosis, no edema, pulses normal, no ischemia or petechiae Neurologic: normal mental status, non-focal exam, pupils equal and round, CN II-XII normal, motor strength normal and Psychiatric: mood appropriate, affect normal CBC and BMP: 03/05/19 06:42 03/06/19 13:41 ABG, PT/INR, D-dimer: PT/INR, D-dimer PT 13.4 Sec. (12.2-14.9) 03/03/19 06:44 INR 1.05 (0.87-1.13) 03/03/19 06:44 D-Dimer 1549.97 ng/mlDDU (0-234) H 03/02/19 23:54 Abnormal lab findings: Abnormal Labs 03/02/19 03/02/19 03/02/19 23:54 23:54 23:54 WBC 13.0 H RBC 5.59 H MCV 77 L MCH 25 L RDW 18.2 H [place] % (Auto) 9.8 H [place] # 1.3 H Eos # Seg Neutrophils % Seg Neutrophils # 8.2 H D-Dimer 1549.97 H Potassium 2.8 L* Chloride BUN 21 H Creatinine 2.5 H Glucose 128 H POC Glucose Uric Acid Calcium 7.4 L Troponin T 0.042 H NT-Pro-B Natriuret Pep Triglycerides 161 H Cholesterol 238 H LDL Cholesterol Direct 181 H HDL Cholesterol 27 L Urine Creatinine Urine Total Protein 03/02/19 03/03/19 03/03/19 23:54 03:19 03:19 WBC 13.2 H RBC 5.68 H MCV 77 L MCH 25 L RDW 18.2 H [place] % (Auto) [place] # 1.0 H Eos # Seg Neutrophils % 71.8 H Seg Neutrophils # 9.5 H D-Dimer Potassium Chloride BUN Creatinine Glucose POC Glucose Uric Acid Calcium Troponin T 0.033 H D NT-Pro-B Natriuret Pep 1100 H Triglycerides Cholesterol LDL Cholesterol Direct HDL Cholesterol Urine Creatinine Urine Total Protein 03/03/19 03/03/19 03/03/19 03:19 10:23 17:05 WBC RBC MCV MCH RDW [place] % (Auto) [place] # Eos # Seg Neutrophils % Seg Neutrophils # D-Dimer Potassium 2.8 L* Chloride 94.2 L BUN Creatinine 2.4 H Glucose 132 H POC Glucose 133 H 149 H Uric Acid Calcium 7.4 L Troponin T NT-Pro-B Natriuret Pep Triglycerides Cholesterol LDL Cholesterol Direct HDL Cholesterol Urine Creatinine Urine Total Protein 03/03/19 03/04/19 03/04/19 21:41 07:52 11:15 WBC RBC MCV MCH RDW [place] % (Auto) [place] # Eos # Seg Neutrophils % Seg Neutrophils # D-Dimer Potassium Chloride BUN Creatinine Glucose POC Glucose 116 H 117 H 211 H Uric Acid Calcium Troponin T NT-Pro-B Natriuret Pep Triglycerides Cholesterol LDL Cholesterol Direct HDL Cholesterol Urine Creatinine Urine Total Protein 03/04/19 03/04/19 03/04/19 14:04 15:20 16:50 WBC RBC MCV MCH RDW [place] % (Auto) [place] # Eos # Seg Neutrophils % Seg Neutrophils # D-Dimer Potassium Chloride BUN Creatinine Glucose POC Glucose 118 H Uric Acid 11.5 H Calcium Troponin T NT-Pro-B Natriuret Pep Triglycerides Cholesterol LDL Cholesterol Direct HDL Cholesterol Urine Creatinine 307.0 H Urine Total Protein 98 H 03/04/19 03/05/19 03/05/19 21:20 06:42 06:42 WBC 14.0 H RBC 5.19 H MCV 76 L MCH 25 L RDW 17.6 H [place] % (Auto) 8.7 H [place] # 1.2 H Eos # 0.5 H Seg Neutrophils % Seg Neutrophils # 8.8 H D-Dimer Potassium 2.8 L* Chloride 94.5 L BUN 24 H Creatinine 2.6 H Glucose 130 H POC Glucose 140 H Uric Acid Calcium 7.6 L Troponin T NT-Pro-B Natriuret Pep Triglycerides Cholesterol LDL Cholesterol Direct HDL Cholesterol Urine Creatinine Urine Total Protein 03/05/19 10:53 WBC RBC MCV MCH RDW [place] % (Auto) [place] # Eos # Seg Neutrophils % Seg Neutrophils # D-Dimer Potassium Chloride BUN Creatinine Glucose POC Glucose 132 H Uric Acid Calcium Troponin T NT-Pro-B Natriuret Pep Triglycerides Cholesterol LDL Cholesterol Direct HDL Cholesterol Urine Creatinine Urine Total Protein Allied health notes reviewed: nursing
[2019-03-05 17:39] LABS: Calcium 7.6 mg/dL (8.4-10.2)
[2019-03-05 18:22] LABS: Creatinine,Urine 223.3 mg/dL (0.1-20.0)
[2019-03-06] MEDS: APRESOLINE PO SCH ×3 (06:40→21:39)
[2019-03-06] MEDS: HEPARIN SUB-Q SCH ×3 (06:48→21:38)
[2019-03-06] MEDS ORDERED: LEXISCAN IV ONE (08:18)
[2019-03-06] MEDS ORDERED: K-DUR PO ONE ×2 (09:00→13:00)
--- NOTE | 2019-03-06 09:50 | Discharge Summary ---
Providers - Providers Date of Admission: 03/03/19 09:24 Date of discharge: 03/06/19 Attending physician: CHELSEA VEGA 03/03/19 Consult to Cardiac Rehabilitation [CONS] Routine Reason For Exam: Phase I 03/03/19 06:09 Consult to Physician [CONS] Routine Comment: Consulting Provider: VAMSHI SKINNER Physician Instructions: Reason For Exam: chest pain, HTN crisis 03/03/19 06:20 Consult to Physician [CONS] Routine Comment: Consulting Provider: DESIREE MONSALVE Physician Instructions: Reason For Exam: elevated BUN/creat 03/03/19 10:34 Consult to Physician [CONS] Routine Comment: Consulting Provider: MIRACLE ZIMMERMAN Physician Instructions: Reason For Exam: critical care management 03/03/19 11:14 Consult to Physician [CONS] Routine Comment: Consulting Provider: MIRACLE ZIMMERMAN Physician Instructions: Reason For Exam: CRITICAL CARE 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 Patient's baseline creatinine was 1.5 as of 2016. Patient reportedly has had long-standing history of hypertension. Unfortunately, He was unable to afford a physician visit, and has not been properly followed by a physician in the outpatient setting. The patient also reportedly was not compliant with medication prior to admission. His blood pressure at home was running between 160-180 systolic. On admission, he was noted to have potassium of 2.8 BUN 20 creatinine 2.4 bicarbonate 30 hemoglobin 13.9. Pulmonary perfusion scan showed no evidence of PE. The patient was initially admitted to the floor but noted to have systolic blood pressures maintaining greater than 200. Therefore, patient was transferred to the ICU and started on a Cardene drip. His home medications of clonidine and hydralazine were resumed with significant improvement in his blood pressure. Patient was then transferred to the floor. The patient was seen by pulmonary, cardiology and nephrology in consultation. Echocardiogram completed revealed EF of 50-55% with moderate concentric left ventricular hypertrophy and diastolic filling abnormalities consistent with impaired relaxation. Nephrology also saw the patient in consultation and felt the accelerated hypertension with hypokalemia was suspicious for secondary hypertension possibly related to hyperaldosteronism. Plasma metanephrine/aldosterone and plasma renin levels are pending. Nephrology felt the renal insufficiency was likely now chronic kidney disease from long-standing hypertension. Nephrology also added losartan to the antihypertensive regimen. Potassium was repleted for the hyperkalemia. Cardiology recommended stress test and if negative patient will discharge home with further follow-up. Dedicated discharge time 35 minutes. Disposition: - TO HOME OR SELFCARE Time spent for discharge: 35 - Discharge Diagnoses (1) Acute chest pain Status: Acute (2) Acute kidney failure Status: Acute Qualifiers: Acute renal failure type: unspecified Qualified Code(s): N17.9 - Acute kidney failure, unspecified (3) Accelerated hypertension Status: Acute (4) Noncompliance Status: Acute (5) Renal insufficiency Status: Acute (6) Diabetes mellitus type 2 in obese Status: Chronic (7) Morbid obesity Status: Chronic Core Measure Documentation - Palliative Care Palliative Care/ Comfort Measures: Not Applicable - Core Measures Any of the following diagnoses?: none Exam - Constitutional Vitals: Temp Pulse Resp BP Pulse Ox 98.5 F 91 H 18 154/101 96 03/06/19 03:39 03/06/19 03:39 03/06/19 03:39 03/06/19 03:39 03/06/19 03:39 General appearance: Present: no acute distress, well-nourished - EENT Eyes: Present: PERRL ENT: hearing intact, clear oral mucosa - Neck Neck: Present: supple, normal ROM - Respiratory Respiratory effort: normal Respiratory: bilateral: CTA - Cardiovascular Heart Sounds: Present: S1 & S2. Absent: rub, click - Extremities Extremities: pulses symmetrical, No edema Peripheral Pulses: within normal limits - Abdominal General gastrointestinal: Present: soft, non-tender, non-distended, normal bowel sounds Male genitourinary: Present: normal - Integumentary Integumentary: Present: clear, warm, dry - Musculoskeletal Musculoskeletal: gait normal, strength equal bilaterally - Psychiatric Psychiatric: appropriate mood/affect, intact judgment & insight - Neurologic Neurologic: CNII-XII intact, moves all extremities Plan Activity: advance as tolerated Weight Bearing Status: Weight Bear as Tolerated Diet: diabetic, renal Follow up with: PRIMARY MD ALICIA [Primary Care Provider] - 3-5 Days BOB GALVAN MD [Staff Physician] - 7 Days SERAFIN YAO MD [Staff Physician] - 7 Days MIRACLE ZIMMERMAN MD [Staff Physician] - 7 Days Prescriptions: Spironolactone [Aldactone] 50 mg PO QDAY #30 tablet hydrALAZINE [Apresoline TAB] 50 mg PO Q8HR #90 tablet Aspirin EC 325 mg PO QDAY #30 tablet cloNIDine [Catapres] 0.3 mg PO TID #90 tablet Losartan [Cozaar] 50 mg PO QDAY #30 tablet ISOSORBIDE MONOnitrate [Imdur ER] 30 mg PO QDAY #30 tablet AtorvaSTATin [Lipitor] 40 mg PO QHS #30 tablet Metoprolol [Lopressor TAB] 50 mg PO TID #90 tablet Famotidine [Pepcid] 20 mg PO DAILY #60 tablet
[2019-03-06 10:09] LABS: Calcium 7.9 mg/dL (8.4-10.2)
[2019-03-06] MEDS: COZAAR PO SCH (14:14)
[2019-03-06] MEDS: IMDUR PO SCH (14:14)
[2019-03-06] MEDS: CATAPRES PO SCH ×3 (14:15→21:05)
[2019-03-06] MEDS: COLACE PO SCH ×2 (14:16→21:38)
[2019-03-06] MEDS: ALDACTONE PO SCH (14:16)
[2019-03-06] MEDS: METOPROLOL PO SCH ×3 (14:16→21:42)
[2019-03-06] MEDS: ECOTRIN PO SCH (14:16)
[2019-03-06] MEDS: PEPCID PO SCH (14:17)
[2019-03-06] MEDS: SODIUM CHLORIDE FLUSH SYRINGE 10 ML IV SCH ×2 (14:17→21:42)
[2019-03-06] MEDS: HumuLIN R SUB-Q SCH ×4 (14:18→21:41)
--- NOTE | 2019-03-06 14:24 | Progress Note ---
Assessment and Plan cp htn urgency nstemi type 2 dm obeisty non compliance acute on chronic renal failure hypokalemia rec: S/p lexiscan MPI stress test this morning which was negative for ischemia, EF 38%. optimize BPs - increase lopressor dosage. follow nephrology recs. The patient has been seen in conjunction with Dr. DANNI Kramer who agrees with the assessment and plan of care. Subjective Date of service: 03/06/19 Principal diagnosis: Hypertensive emergency; Morbid obesity; DM II; ALEX; NSTEMI Interval history: pt for stress test. no current complaints. BPs remain elevated. Objective Last Vital Signs Temp 98.5 F 03/06/19 07:47 Pulse 105 H 03/06/19 14:14 Resp 18 03/06/19 07:47 BP 168/101 03/06/19 14:16 Pulse Ox 85 03/06/19 07:47 - Physical Examination General: Appears Well, No Apparent Distress HEENT: Positive: PERRL, EOMI Neck: Cardiac: Positive: Reg Rate and Rhythm, S1/S2 Lungs: Positive: Decreased Breath Sounds Neuro: Positive: Grossly Intact Abdomen: /Rectal: Normal Prostate, No Masses Skin: Musculoskeletal: No Fluid Collection, No Pain, Normal Range of Motion Gait: Normal Gait Extremities: - Labs and Meds Comprehensive Metabolic Panel 03/05/19 03/06/19 Range/Units 17:09 08:44 Sodium 138 140 (137-145) mmol/L Potassium 3.3 L 2.9 L* (3.6-5.0) mmol/L Chloride 96.9 L 97.8 L (98-107) mmol/L Carbon Dioxide 24 23 (22-30) mmol/L BUN 24 H 26 H (9-20) mg/dL Creatinine 2.5 H 2.5 H (0.8-1.5) mg/dL Glucose 121 H 106 H (75-100) mg/dL Calcium 7.6 L 7.9 L (8.4-10.2) mg/dL - Imaging and Cardiology Echo: report reviewed (03/02/2019 normal lv function moderate lvh, mild mr and mild tr and normal rvsp) - Allied health notes Allied health notes reviewed: nursing
--- NOTE | 2019-03-06 14:40 | Progress Note ---
Assessment and Plan - Patient Problems (1) Acute kidney failure Current Visit: Yes Status: Acute Qualifiers: Acute renal failure type: unspecified Qualified Code(s): N17.9 - Acute kidney failure, unspecified Plan to address problem: Acute kidney injury versus progression of CKD baseline creatinine : 1.5mg/dl in 2016 current creatinine : 2.5mg/dl I reviewed renal us with right kidney : 10.9cm and left kidney 10.8cm ,no hydronephrosis. this may be progression of underlying kidney disease. 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 (3) Hypokalemia Current Visit: Yes Status: Acute Plan to address problem: Hypokalemia - continue aggressive potassium replacement - Will obtain magnesium levels Will give additional 40meq Kcl today. - currently on spirinolactone and Losartan. (4) Diabetes mellitus type 2 in obese Current Visit: No Status: Chronic Plan to address problem: Dm type II : ensure medications montior fingersticks . Subjective Principal diagnosis: Hypertensive emergency; Morbid obesity; DM II; ALEX; NSTEMI Interval history: 33 year old with medical history of HTN Dm type II, HLD, NSTEMI admitted with uncontrolled HTN and CKD Patient seen today, admitted with PND symptoms and chest pain . feels better denies any edema. Objective - Vital Signs Vital signs: Vital Signs - 12hr 03/06/19 03/06/19 03/06/19 03:39 07:47 11:29 Temperature 98.5 F 98.5 F Pulse Rate 91 H 59 L Respiratory 18 18 Rate Blood Pressure 154/101 173/124 189/119 O2 Sat by Pulse 96 85 Oximetry 03/06/19 03/06/19 03/06/19 11:32 11:59 12:00 Temperature Pulse Rate 99 H Respiratory Rate Blood Pressure 194/126 191/133 O2 Sat by Pulse Oximetry 03/06/19 03/06/19 03/06/19 12:01 12:03 12:05 Temperature Pulse Rate Respiratory Rate Blood Pressure 188/123 199/131 199/113 O2 Sat by Pulse Oximetry 03/06/19 03/06/19 03/06/19 12:07 12:10 14:13 Temperature Pulse Rate Respiratory Rate Blood Pressure 191/121 192/124 168/101 O2 Sat by Pulse Oximetry 03/06/19 03/06/19 03/06/19 14:14 14:15 14:16 Temperature Pulse Rate 105 H Respiratory Rate Blood Pressure 168/101 168/101 168/101 O2 Sat by Pulse Oximetry - General Appearance General appearance: well-developed, well-nourished EENT: ATNC, PERRL, mucous membranes moist Respiratory: Present: Clear to Ascultation Cardiology: regular, S1S2 Gastrointestinal: normal, normoactive bowel sounds Integumentary: no rash Neurologic: no focal deficit, CN 3-12 intact Psychiatric: mood/affect appropriate - Lab 03/05/19 06:42 03/06/19 08:44 Most recent lab results Calcium 7.9 mg/dL (8.4-10.2) L 03/06/19 08:44 Urine Creatinine 223.3 mg/dL (0.1-20.0) H 03/05/19 Unknown Urine Sodium 37 mmol/L 03/04/19 15:20 Urine Total Protein 98 mg/dL (5-11.8) H 03/04/19 15:20 - Imaging Kidney/bladder ultrasound: image reviewed Medications & Allergies - Medications Allergies/Adverse Reactions: Allergies ants Allergy (Uncoded 01/24/16 10:50) Swelling Home Medications: Home Medications Medication Instructions Recorded Confirmed Last Taken Type Aspirin EC 325 mg PO QDAY #30 tablet 03/06/19 Unknown Rx AtorvaSTATin [Lipitor] 40 mg PO QHS #30 tablet 03/06/19 Unknown Rx Famotidine [Pepcid] 20 mg PO DAILY #60 tablet 03/06/19 Unknown Rx ISOSORBIDE MONOnitrate [Imdur ER] 30 mg PO QDAY #30 tablet 03/06/19 Unknown Rx Insulin Regular, Human [HumuLIN R] 0 units SUB-Q ACHS units 03/06/19 Unknown Rx Losartan [Cozaar] 50 mg PO QDAY #30 tablet 03/06/19 Unknown Rx Metoprolol [Lopressor TAB] 50 mg PO TID #90 tablet 03/06/19 Unknown Rx Spironolactone [Aldactone] 50 mg PO QDAY #30 tablet 03/06/19 Unknown Rx cloNIDine [Catapres] 0.3 mg PO TID #90 tablet 03/06/19 Unknown Rx hydrALAZINE [Apresoline TAB] 50 mg PO Q8HR #90 tablet 03/06/19 Unknown Rx Active Medications: Generic Name Dose Route Start Last Admin Trade Name Freq PRN Reason Stop Dose Admin Acetaminophen 650 mg 03/03/19 03:02 03/04/19 10:01 Tylenol PO 650 mg Q4H PRN Administration Pain MILD(1-3)/Fever >100.5/DOWNS Aspirin 325 mg 03/04/19 10:00 03/06/19 14:16 Ecotrin PO 325 mg QDAY EFRAIN Administration Atorvastatin Calcium 40 mg 03/03/19 22:00 03/05/19 21:13 Lipitor PO 40 mg QHS EFRAIN Administration Clonidine HCl 0.3 mg 03/04/19 14:00 03/06/19 14:15 Catapres PO 0.3 mg TID EFRAIN Administration Dextrose 50 ml 03/03/19 10:00 D50w (25gm) Syringe IV Q1H PRN Hypoglycemia Docusate Sodium 100 mg 03/03/19 10:00 03/06/19 14:16 Colace PO 100 mg BID EFRAIN Administration Famotidine 20 mg 03/04/19 10:00 03/06/19 14:17 Pepcid PO 20 mg DAILY EFRAIN Administration Heparin Sodium (Porcine) 5,000 unit 03/03/19 14:00 03/06/19 06:48 Heparin SUB-Q 5,000 unit Q8HR EFRAIN Administration Hydralazine HCl 50 mg 03/04/19 14:00 03/06/19 14:16 Apresoline PO 50 mg Q8HR EFRAIN Administration Insulin Human Regular 0 units 03/03/19 16:30 03/05/19 23:43 Humulin R SUB-Q Not Given ACHS [facility] Protocol Isosorbide Mononitrate 30 mg 03/04/19 12:00 03/06/19 14:14 Imdur PO 30 mg QDAY EFRAIN Administration Losartan Potassium 50 mg 03/05/19 13:00 03/06/19 14:14 Cozaar PO 50 mg QDAY EFRAIN Administration Metoprolol Tartrate 100 mg 03/06/19 22:00 Lopressor PO BID EFRAIN Ondansetron HCl 4 mg 03/03/19 03:02 Zofran IV Q8H PRN Nausea And Vomiting Sodium Chloride 10 ml 03/03/19 10:00 03/06/19 14:17 Sodium Chloride Flush Syringe 10 Ml IV 10 ml BID EFRAIN Administration Sodium Chloride 10 ml 03/03/19 03:02 Sodium Chloride Flush Syringe 10 Ml IV PRN PRN LINE FLUSH Spironolactone 50 mg 03/03/19 14:00 03/06/19 14:16 Aldactone PO 50 mg QDAY EFRAIN Administration
[2019-03-06 14:47] LABS: Calcium 8.2 mg/dL (8.4-10.2)
--- NOTE | 2019-03-06 15:00 | Treadmill Report ---
NUCLEAR STRESS TEST REPORT The patient is brought to the Cardiology lab and a Lexiscan stress test is performed. The patient tolerated the procedure well. Post-stress images revealed fairly homogeneous distribution of the isotope with no significant reversibility during the rest to indicate ischemia. Accompanying gated study shows global left ventricular systolic dysfunction with a calculated ejection fraction of 38%. IMPRESSION: 1. Nuclear stress test is noted to be negative for definite ischemia. 2. Left ventricular systolic function is moderately reduced; however, this needs to be correlated with another modality such as an echocardiogram. 3. Suggest clinical correlation. JOB# [id number] KB/NTS
[2019-03-07] MEDS: HEPARIN SUB-Q SCH ×3 (06:35→22:40)
[2019-03-07] MEDS: APRESOLINE PO SCH ×3 (06:36→22:42)
[2019-03-07 07:34] LABS: Hematocrit 39.3 % (35.5-45.6); Hemoglobin 12.6 gm/dl (11.8-15.2); Mean Corpuscular HGB Conc 32 % (32-34); Mean Corpuscular Volume 76 fl (84-94); Platelet Count 392 K/mm3 (140-440); Red Blood Count 5.16 M/mm3 (3.65-5.03)
[2019-03-07] MEDS: HumuLIN R SUB-Q SCH ×4 (08:00→22:47)
[2019-03-07] MEDS: CATAPRES PO SCH ×3 (08:15→21:30)
[2019-03-07 08:31] LABS: Calcium 8.2 mg/dL (8.4-10.2)
[2019-03-07] MEDS: SODIUM CHLORIDE FLUSH SYRINGE 10 ML IV SCH ×2 (09:53→22:47)
[2019-03-07] MEDS: ECOTRIN PO SCH (09:54)
[2019-03-07] MEDS: PEPCID PO SCH (09:54)
[2019-03-07] MEDS: COLACE PO SCH ×2 (09:54→22:41)
[2019-03-07] MEDS: ALDACTONE PO SCH (09:54)
[2019-03-07] MEDS: IMDUR PO SCH (09:55)
[2019-03-07] MEDS: METOPROLOL PO SCH ×2 (09:55→22:42)
[2019-03-07] MEDS: COZAAR PO SCH (09:55)
--- NOTE | 2019-03-07 10:06 | Progress Note ---
Assessment and Plan Assessment and plan: Hypertensive urgency. Etiology may be related his secondary hypertension. Follow-up plasma metanephrine/ aldosterone as well as plasma renin level. Continue Aldactone per nephrology. Norvasc dose increased to 10mg daily today Acute on CKD. Patient with a baseline creatinine of 1.5 in 2016. Nephrology following. Creatinine on this admission 2.4, now down to 2.2. Suspect this acute on chronic related to long-standing history of hypertension, diabetes. Hypokalemia. Replete potassium follow-up BMP in a.m. Diabetes mellitus type 2. Continue Accu-Cheks and sliding scale insulin. History of gout. Chest pain. Patient undergo Lexiscan in a.m. Cardiology following. Obesity. Patient has been counseled on importance of dietary modifications, weight loss and exercise. Hopefully dc home tomorrow History Interval history: Chest pain, resolved Shortness of breath Hospitalist Physical - Physical exam Narrative exam: Gen: Not in acute distress, lying in bed, obese HEENT: Normocephalic, atraumatic Neck: supple, no JVD Heart: S1 and S2 reg, no murmurs, rubs or gallop Lungs: Clear to auscultation, no rhonchi, no wheeze Abd: soft, non tender, non distended, normal BS, Ext: No edema, no clubbing, no cyanosis Neuro: Awake, alert, oriented X 3, no focal neurological signs - Constitutional Vitals: Temp Pulse Resp BP Pulse Ox 98.4 F 93 H 20 142/100 96 03/07/19 08:03 03/07/19 10:00 03/07/19 08:03 03/07/19 10:00 03/07/19 08:03 General appearance: Present: no acute distress, obese Results - Labs CBC & Chem 7: 03/07/19 07:13 03/07/19 07:29 Labs: Laboratory Last Values WBC 13.6 K/mm3 (4.5-11.0) H 03/07/19 07:13 RBC 5.16 M/mm3 (3.65-5.03) H 03/07/19 07:13 Hgb 12.6 gm/dl (11.8-15.2) 03/07/19 07:13 Hct 39.3 % (35.5-45.6) 03/07/19 07:13 MCV 76 fl (84-94) L 03/07/19 07:13 MCH 25 pg (28-32) L 03/07/19 07:13 MCHC 32 % (32-34) 03/07/19 07:13 RDW 18.0 % (13.2-15.2) H 03/07/19 07:13 Plt Count 392 K/mm3 (140-440) 03/07/19 07:13 Lymph % (Auto) 24.5 % (13.4-35.0) 03/05/19 06:42 [place]uming % (Auto) 8.7 % (0.0-7.3) H 03/05/19 06:42 Eos % (Auto) 3.6 % (0.0-4.3) 03/05/19 06:42 Baso % (Auto) 0.5 % (0.0-1.8) 03/05/19 06:42 Lymph # 3.4 K/mm3 (1.2-5.4) 03/05/19 06:42 Cuming # 1.2 K/mm3 (0.0-0.8) H 03/05/19 06:42 Eos # 0.5 K/mm3 (0.0-0.4) H 03/05/19 06:42 Baso # 0.1 K/mm3 (0.0-0.1) 03/05/19 06:42 Seg Neutrophils % 62.7 % (40.0-70.0) 03/05/19 06:42 Seg Neutrophils # 8.8 K/mm3 (1.8-7.7) H 03/05/19 06:42 PT 13.4 Sec. (12.2-14.9) 03/03/19 06:44 INR 1.05 (0.87-1.13) 03/03/19 06:44 APTT 32.3 Sec. (24.2-36.6) 03/03/19 06:44 D-Dimer 1549.97 ng/mlDDU (0-234) H 03/02/19 23:54 Sodium 139 mmol/L (137-145) 03/07/19 07:29 Potassium 3.6 mmol/L (3.6-5.0) 03/07/19 07:29 Chloride 100.5 mmol/L (98-107) 03/07/19 07:29 Carbon Dioxide 21 mmol/L (22-30) L 03/07/19 07:29 Anion Gap 21 mmol/L 03/07/19 07:29 BUN 27 mg/dL (9-20) H 03/07/19 07:29 Creatinine 2.2 mg/dL (0.8-1.5) H 03/07/19 07:29 Estimated GFR 42 ml/min 03/07/19 07:29 BUN/Creatinine Ratio 12 % 03/07/19 07:29 Glucose 107 mg/dL (75-100) H 03/07/19 07:29 POC Glucose 99 (70-105) 03/07/19 08:10 Uric Acid 11.5 mg/dL (3.5-7.6) H 03/04/19 14:04 Calcium 8.2 mg/dL (8.4-10.2) L 03/07/19 07:29 Magnesium 2.20 mg/dL (1.7-2.3) 03/06/19 15:28 Troponin T 0.026 ng/mL (0.00-0.029) 03/03/19 05:30 NT-Pro-B Natriuret Pep 1100 pg/mL (0-450) H 03/02/19 23:54 Triglycerides 161 mg/dL (2-149) H 03/02/19 23:54 Cholesterol 238 mg/dL (50-199) H 03/02/19 23:54 LDL Cholesterol Direct 181 mg/dL (50-130) H 03/02/19 23:54 HDL Cholesterol 27 mg/dL (40-59) L 03/02/19 23:54 Cholesterol/HDL Ratio 8.81 % 03/02/19 23:54 Urine Creatinine 223.3 mg/dL (0.1-20.0) H 03/05/19 Unknown Urine Sodium 37 mmol/L 03/04/19 15:20 Urine Potassium 21.82 mmol/L 03/05/19 Unknown Urine Total Protein 98 mg/dL (5-11.8) H 03/04/19 15:20 Active Medications - Current Medications Current Medications: Generic Name Dose Route Start Last Admin Trade Name Freq PRN Reason Stop Dose Admin Acetaminophen 650 mg 03/03/19 03:02 03/04/19 10:01 Tylenol PO 650 mg Q4H PRN Administration Pain MILD(1-3)/Fever >100.5/DOWNS Amlodipine Besylate 10 mg 03/07/19 10:00 03/07/19 10:00 Norvasc PO 10 mg QDAY EFRAIN Administration Aspirin 325 mg 03/04/19 10:00 03/07/19 09:54 Ecotrin PO 325 mg QDAY EFRAIN Administration Atorvastatin Calcium 40 mg 03/03/19 22:00 03/06/19 21:41 Lipitor PO 40 mg QHS EFRAIN Administration Clonidine HCl 0.3 mg 03/04/19 14:00 03/07/19 08:15 Catapres PO 0.3 mg TID EFRAIN Administration Dextrose 50 ml 03/03/19 10:00 D50w (25gm) Syringe IV Q1H PRN Hypoglycemia Docusate Sodium 100 mg 03/03/19 10:00 03/07/19 09:54 Colace PO 100 mg BID EFRAIN Administration Famotidine 20 mg 03/04/19 10:00 03/07/19 09:54 Pepcid PO 20 mg DAILY EFRAIN Administration Heparin Sodium (Porcine) 5,000 unit 03/03/19 14:00 03/07/19 06:35 Heparin SUB-Q 5,000 unit Q8HR EFRAIN Administration Hydralazine HCl 50 mg 03/04/19 14:00 03/07/19 06:36 Apresoline PO 50 mg Q8HR EFRAIN Administration Insulin Human Regular 0 units 03/03/19 16:30 03/07/19 08:00 Humulin R SUB-Q Not Given ACHS [facility] Protocol Isosorbide Mononitrate 30 mg 03/04/19 12:00 03/07/19 09:55 Imdur PO 30 mg QDAY EFRAIN Administration Losartan Potassium 50 mg 03/05/19 13:00 03/07/19 09:55 Cozaar PO 50 mg QDAY EFRAIN Administration Metoprolol Tartrate 100 mg 03/06/19 22:00 03/07/19 09:55 Lopressor PO 100 mg BID EFRAIN Administration Ondansetron HCl 4 mg 03/03/19 03:02 Zofran IV Q8H PRN Nausea And Vomiting Sodium Chloride 10 ml 03/03/19 10:00 03/07/19 09:53 Sodium Chloride Flush Syringe 10 Ml IV 10 ml BID EFRAIN Administration Sodium Chloride 10 ml 03/03/19 03:02 Sodium Chloride Flush Syringe 10 Ml IV PRN PRN LINE FLUSH Spironolactone 50 mg 03/03/19 14:00 03/07/19 09:54 Aldactone PO 50 mg QDAY EFRAIN Administration
--- NOTE | 2019-03-07 10:56 | Progress Note ---
Assessment and Plan - Patient Problems (1) Acute kidney failure Current Visit: Yes Status: Acute Qualifiers: Acute renal failure type: unspecified Qualified Code(s): N17.9 - Acute kidney failure, unspecified Plan to address problem: Acute kidney injury versus progression of CKD baseline creatinine : 1.5mg/dl in 2016 current creatinine : 2.5mg/dl I reviewed renal us with right kidney : 10.9cm and left kidney 10.8cm ,no hydronephrosis. this may be progression of underlying kidney disease. (2) Hypertensive urgency Current Visit: Yes Status: Acute Plan to address problem: Hypertensive urgency : Will increase Amlodipine to 10mg daily today. 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 (3) Hypokalemia Current Visit: Yes Status: Acute Plan to address problem: Hypokalemia ;improved. - continue aggressive potassium replacement - magnesium levels are at goal - currently on spirinolactone and Losartan. (4) Diabetes mellitus type 2 in obese Current Visit: No Status: Chronic Plan to address problem: Dm type II : ensure medications montior fingersticks . Subjective Principal diagnosis: Hypertensive emergency; Morbid obesity; DM II; ALEX; NSTEMI Interval history: 33 year old with medical history of HTN Dm type II, HLD, NSTEMI admitted with uncontrolled HTN and CKD Patient seen today, admitted with PND symptoms and chest pain . feels better denies any edema. Blood pressure still elevated Objective - Vital Signs Vital signs: Vital Signs - 12hr 03/06/19 03/06/19 03/07/19 23:00 23:33 03:37 Temperature 98.3 F 98.6 F Pulse Rate 84 90 Pulse Rate [ 90 Left Radial] Pulse Rate [ 90 Right Radial] Respiratory 18 18 17 Rate Blood Pressure 152/105 Blood Pressure 123/86 [Left] O2 Sat by Pulse 96 96 Oximetry 03/07/19 03/07/19 03/07/19 04:00 06:36 08:03 Temperature 98.4 F Pulse Rate 90 85 86 Pulse Rate [ Left Radial] Pulse Rate [ Right Radial] Respiratory 20 Rate Blood Pressure 150/106 Blood Pressure 172/110 [Left] O2 Sat by Pulse 96 Oximetry 03/07/19 03/07/19 03/07/19 08:15 09:54 09:55 Temperature Pulse Rate 87 93 H 93 H Pulse Rate [ Left Radial] Pulse Rate [ Right Radial] Respiratory Rate Blood Pressure 164/89 142/100 142/100 Blood Pressure [Left] O2 Sat by Pulse Oximetry 03/07/19 10:00 Temperature Pulse Rate 93 H Pulse Rate [ Left Radial] Pulse Rate [ Right Radial] Respiratory Rate Blood Pressure 142/100 Blood Pressure [Left] O2 Sat by Pulse Oximetry - General Appearance General appearance: well-developed, well-nourished EENT: ATNC, PERRL Neck: no JVD Respiratory: Present: Clear to Ascultation Cardiology: regular, S1S2 Gastrointestinal: normal, normoactive bowel sounds Integumentary: no rash Neurologic: alert and oriented x3, CN 3-12 intact Musculoskeletal: other (no edema. ) Psychiatric: mood/affect appropriate - Lab 03/07/19 07:13 03/07/19 07:29 Most recent lab results Calcium 8.2 mg/dL (8.4-10.2) L 03/07/19 07:29 Magnesium 2.20 mg/dL (1.7-2.3) 03/06/19 15:28 Urine Creatinine 223.3 mg/dL (0.1-20.0) H 03/05/19 Unknown Urine Sodium 37 mmol/L 03/04/19 15:20 Urine Total Protein 98 mg/dL (5-11.8) H 03/04/19 15:20 - Imaging Chest x-ray: image reviewed (I reviewed CXR without edema. ) Medications & Allergies - Medications Allergies/Adverse Reactions: Allergies ants Allergy (Uncoded 01/24/16 10:50) Swelling Home Medications: Home Medications Medication Instructions Recorded Confirmed Last Taken Type Aspirin EC 325 mg PO QDAY #30 tablet 03/06/19 Unknown Rx AtorvaSTATin [Lipitor] 40 mg PO QHS #30 tablet 03/06/19 Unknown Rx Famotidine [Pepcid] 20 mg PO DAILY #60 tablet 03/06/19 Unknown Rx ISOSORBIDE MONOnitrate [Imdur ER] 30 mg PO QDAY #30 tablet 03/06/19 Unknown Rx Insulin Regular, Human [HumuLIN R] 0 units SUB-Q ACHS units 03/06/19 Unknown Rx Losartan [Cozaar] 50 mg PO QDAY #30 tablet 03/06/19 Unknown Rx Metoprolol [Lopressor TAB] 50 mg PO TID #90 tablet 03/06/19 Unknown Rx Spironolactone [Aldactone] 50 mg PO QDAY #30 tablet 03/06/19 Unknown Rx cloNIDine [Catapres] 0.3 mg PO TID #90 tablet 03/06/19 Unknown Rx hydrALAZINE [Apresoline TAB] 50 mg PO Q8HR #90 tablet 03/06/19 Unknown Rx Active Medications: Generic Name Dose Route Start Last Admin Trade Name Freq PRN Reason Stop Dose Admin Acetaminophen 650 mg 03/03/19 03:02 03/04/19 10:01 Tylenol PO 650 mg Q4H PRN Administration Pain MILD(1-3)/Fever >100.5/DOWNS Amlodipine Besylate 10 mg 03/07/19 10:00 03/07/19 10:00 Norvasc PO 10 mg QDAY EFRAIN Administration Aspirin 325 mg 03/04/19 10:00 03/07/19 09:54 Ecotrin PO 325 mg QDAY EFRAIN Administration Atorvastatin Calcium 40 mg 03/03/19 22:00 03/06/19 21:41 Lipitor PO 40 mg QHS EFRAIN Administration Clonidine HCl 0.3 mg 03/04/19 14:00 03/07/19 08:15 Catapres PO 0.3 mg TID EFRAIN Administration Dextrose 50 ml 03/03/19 10:00 D50w (25gm) Syringe IV Q1H PRN Hypoglycemia Docusate Sodium 100 mg 03/03/19 10:00 03/07/19 09:54 Colace PO 100 mg BID EFRAIN Administration Famotidine 20 mg 03/04/19 10:00 03/07/19 09:54 Pepcid PO 20 mg DAILY EFRAIN Administration Heparin Sodium (Porcine) 5,000 unit 03/03/19 14:00 03/07/19 06:35 Heparin SUB-Q 5,000 unit Q8HR EFRAIN Administration Hydralazine HCl 50 mg 03/04/19 14:00 03/07/19 06:36 Apresoline PO 50 mg Q8HR EFRAIN Administration Insulin Human Regular 0 units 03/03/19 16:30 03/07/19 08:00 Humulin R SUB-Q Not Given ACHS [facility] Protocol Isosorbide Mononitrate 30 mg 03/04/19 12:00 03/07/19 09:55 Imdur PO 30 mg QDAY EFRAIN Administration Losartan Potassium 50 mg 03/05/19 13:00 03/07/19 09:55 Cozaar PO 50 mg QDAY EFRAIN Administration Metoprolol Tartrate 100 mg 03/06/19 22:00 03/07/19 09:55 Lopressor PO 100 mg BID EFRAIN Administration Ondansetron HCl 4 mg 03/03/19 03:02 Zofran IV Q8H PRN Nausea And Vomiting Sodium Chloride 10 ml 03/03/19 10:00 03/07/19 09:53 Sodium Chloride Flush Syringe 10 Ml IV 10 ml BID EFRAIN Administration Sodium Chloride 10 ml 03/03/19 03:02 Sodium Chloride Flush Syringe 10 Ml IV PRN PRN LINE FLUSH Spironolactone 50 mg 03/03/19 14:00 03/07/19 09:54 Aldactone PO 50 mg QDAY EFRAIN Administration
--- NOTE | 2019-03-07 13:25 | Progress Note ---
Assessment and Plan cp htn urgency nstemi type 2 dm obeisty non compliance acute on chronic renal failure hypokalemia rec: Currently stable cardiac status. Pt may discharge home from cardiology standpoint. Recommend follow up in our office with Dr. Burk within 1-2 weeks of discharge ([phone]). The patient has been seen in conjunction with Dr. DANNI Kramer who agrees with the assessment and plan of care. Subjective Date of service: 03/07/19 Principal diagnosis: Hypertensive emergency; Morbid obesity; DM II; ALEX; NSTEMI Interval history: pt resting in bed, no current complaints. BPs improving. Objective Last Vital Signs Temp 97.9 F 03/07/19 10:51 Pulse 87 03/07/19 11:00 Resp 17 03/07/19 11:00 BP 149/101 03/07/19 10:51 Pulse Ox 94 03/07/19 10:51 - Physical Examination General: Appears Well, No Apparent Distress HEENT: Positive: PERRL, EOMI Neck: Cardiac: Positive: Reg Rate and Rhythm, S1/S2 Lungs: Positive: Decreased Breath Sounds Neuro: Positive: Grossly Intact Abdomen: /Rectal: Normal Prostate, No Masses Skin: Musculoskeletal: No Fluid Collection, No Pain, Normal Range of Motion Gait: Normal Gait Extremities: - Labs and Meds CBC 03/07/19 Range/Units 07:13 WBC 13.6 H (4.5-11.0) K/mm3 RBC 5.16 H (3.65-5.03) M/mm3 Hgb 12.6 (11.8-15.2) gm/dl Hct 39.3 (35.5-45.6) % Plt Count 392 (140-440) K/mm3 Comprehensive Metabolic Panel 03/06/19 03/07/19 Range/Units 13:41 07:29 Sodium 139 139 (137-145) mmol/L Potassium 3.1 L 3.6 (3.6-5.0) mmol/L Chloride 96.7 L 100.5 (98-107) mmol/L Carbon Dioxide 24 21 L (22-30) mmol/L BUN 26 H 27 H (9-20) mg/dL Creatinine 2.4 H 2.2 H (0.8-1.5) mg/dL Glucose 130 H 107 H (75-100) mg/dL Calcium 8.2 L 8.2 L (8.4-10.2) mg/dL - Imaging and Cardiology Echo: report reviewed (03/02/2019 normal lv function moderate lvh, mild mr and mild tr and normal rvsp) - Allied health notes Allied health notes reviewed: nursing
[2019-03-08 06:28] LABS: Calcium 8.5 mg/dL (8.4-10.2)
[2019-03-08] MEDS: HEPARIN SUB-Q SCH (06:56)
[2019-03-08] MEDS: APRESOLINE PO SCH (06:57)
[2019-03-08] MEDS: HumuLIN R SUB-Q SCH (08:00)
[2019-03-08] MEDS: CATAPRES PO SCH (08:30)
[2019-03-08] MEDS: COLACE PO SCH (09:52)
[2019-03-08] MEDS: ECOTRIN PO SCH (09:52)
[2019-03-08] MEDS: ALDACTONE PO SCH (09:53)
[2019-03-08] MEDS: PEPCID PO SCH (09:53)
[2019-03-08] MEDS: COZAAR PO SCH (09:53)
[2019-03-08] MEDS: METOPROLOL PO SCH (09:54)
[2019-03-08] MEDS: IMDUR PO SCH (09:54)
[2019-03-08] MEDS: SODIUM CHLORIDE FLUSH SYRINGE 10 ML IV SCH (09:55)
--- NOTE | 2019-03-08 11:30 | Discharge Summary ---
Providers - Providers Date of Admission: 03/03/19 09:24 Date of discharge: 03/08/19 Attending physician: ELEUTERIO MOSCOSO 03/03/19 Consult to Cardiac Rehabilitation [CONS] Routine Reason For Exam: Phase I 03/03/19 06:09 Consult to Physician [CONS] Routine Comment: Consulting Provider: VAMSHI SKINNER Physician Instructions: Reason For Exam: chest pain, HTN crisis 03/03/19 06:20 Consult to Physician [CONS] Routine Comment: Consulting Provider: DESIREE MONSALVE Physician Instructions: Reason For Exam: elevated BUN/creat 03/03/19 10:34 Consult to Physician [CONS] Routine Comment: Consulting Provider: MIRACLE ZIMMERMAN Physician Instructions: Reason For Exam: critical care management 03/03/19 11:14 Consult to Physician [CONS] Routine Comment: Consulting Provider: MIRACLE ZIMMERMAN Physician Instructions: Reason For Exam: CRITICAL CARE Primary care physician: CUST[employer]ER [employer] SPECIALIST Hospitalization Condition: Fair Disposition: DC-01 TO HOME OR SELFCARE Core Measure Documentation - Palliative Care Palliative Care/ Comfort Measures: Not Applicable - Core Measures Any of the following diagnoses?: none Exam - Constitutional Vitals: Temp Pulse Resp BP Pulse Ox 98.1 F 88 17 131/85 93 03/08/19 07:33 03/08/19 09:54 03/08/19 08:30 03/08/19 09:54 03/08/19 07:33 Plan Activity: advance as tolerated Diet: low fat, low cholesterol, low salt, renal Plan of Treatment: 1.Follow up with PCP or [facility] in 1 week. 2.Follow up with [facility] in 1 week 3.Follow up with Dr. Nava, Nephrology in 1 week Assessment: Acute on CKD Follow up with: MIRACLE ZIMMERMAN MD [Staff Physician] - 7 Days TREV VARGAS MD [Primary Care Provider] - 3-5 Days BOB GALVAN MD [Staff Physician] - 7 Days SERAFIN YAO MD [Staff Physician] - 7 Days Prescriptions: Spironolactone [Aldactone] 50 mg PO QDAY #30 tablet hydrALAZINE [Apresoline TAB] 50 mg PO Q8HR #90 tablet Aspirin EC 325 mg PO QDAY #30 tablet cloNIDine [Catapres] 0.3 mg PO TID #90 tablet Losartan [Cozaar] 50 mg PO QDAY #30 tablet ISOSORBIDE MONOnitrate [Imdur ER] 30 mg PO QDAY #30 tablet AtorvaSTATin [Lipitor] 40 mg PO QHS #30 tablet Metoprolol [Lopressor TAB] 100 mg PO BID #60 tablet amLODIPine [Norvasc] 10 mg PO QDAY #30 tablet Famotidine [Pepcid] 20 mg PO DAILY #60 tablet
[2019-03-08 11:47] VITALS: BP 139/101
--- NOTE | 2019-03-08 14:33 | Progress Note ---
Assessment and Plan - Patient Problems (1) Acute kidney failure Status: Acute Qualifiers: Acute renal failure type: unspecified Qualified Code(s): N17.9 - Acute kidney failure, unspecified Plan to address problem: Acute kidney injury versus progression of CKD :improved. baseline creatinine : 1.5mg/dl in 2016 peak creatinine : 2.5mg/dl current creatinine : 2.1mg/dl I reviewed renal us with right kidney : 10.9cm and left kidney 10.8cm ,no hydronephrosis. this may be progression of underlying kidney disease. Needs outpatient follow up in CKD clinic. (2) Hypertensive urgency Status: Acute Plan to address problem: Hypertensive urgency : continue Amlodipine 10mg daily today. 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 (3) Hypokalemia Status: Acute Plan to address problem: Hypokalemia ;improved. - continue aggressive potassium replacement - magnesium levels are at goal - currently on spirinolactone and Losartan. (4) Diabetes mellitus type 2 in obese Status: Chronic Plan to address problem: Dm type II : ensure medications montior fingersticks . Subjective Principal diagnosis: Hypertensive emergency; Morbid obesity; DM II; ALEX; NSTEMI Interval history: 33 year old with medical history of HTN Dm type II, HLD, NSTEMI admitted with uncontrolled HTN and CKD Patient seen today, admitted with PND symptoms and chest pain . feels better denies any edema. Blood pressure improved today anxious to be discharged. Objective - Vital Signs Vital signs: Vital Signs - 12hr 03/08/19 03/08/19 03/08/19 03:34 04:00 06:57 Temperature 98.6 F Pulse Rate 81 81 86 Pulse Rate [ Left Dorsalis Pedis] Respiratory 18 Rate Blood Pressure 144/93 Blood Pressure 146/101 [Left] O2 Sat by Pulse 96 Oximetry 03/08/19 03/08/19 03/08/19 07:33 08:30 09:53 Temperature 98.1 F Pulse Rate 87 76 87 Pulse Rate [ 87 Left Dorsalis Pedis] Respiratory 18 17 Rate Blood Pressure 162/111 129/81 131/85 Blood Pressure [Left] O2 Sat by Pulse 93 Oximetry 03/08/19 03/08/19 03/08/19 09:54 09:59 11:33 Temperature 97.9 F Pulse Rate 88 83 Pulse Rate [ Left Dorsalis Pedis] Respiratory 18 Rate Blood Pressure 131/85 131/85 139/101 Blood Pressure [Left] O2 Sat by Pulse 94 Oximetry 03/08/19 12:00 Temperature Pulse Rate 89 Pulse Rate [ Left Dorsalis Pedis] Respiratory Rate Blood Pressure Blood Pressure [Left] O2 Sat by Pulse Oximetry - General Appearance General appearance: well-developed, well-nourished EENT: ATNC, PERRL, mucous membranes moist Neck: no JVD Respiratory: Present: Clear to Ascultation Cardiology: regular, S1S2 Gastrointestinal: normal, normoactive bowel sounds Integumentary: no rash Neurologic: alert and oriented x3, CN 3-12 intact Psychiatric: mood/affect appropriate - Lab 03/07/19 07:13 03/08/19 06:02 Most recent lab results Calcium 8.5 mg/dL (8.4-10.2) 03/08/19 06:02 Magnesium 2.20 mg/dL (1.7-2.3) 03/06/19 15:28 Urine Creatinine 223.3 mg/dL (0.1-20.0) H 03/05/19 Unknown Urine Sodium 37 mmol/L 03/04/19 15:20 Urine Total Protein 98 mg/dL (5-11.8) H 03/04/19 15:20 - Imaging Chest x-ray: image reviewed (I reviewed CXR without pulmonary edema. ) Medications & Allergies - Medications Allergies/Adverse Reactions: Allergies ants Allergy (Uncoded 01/24/16 10:50) Swelling Home Medications: Home Medications Medication Instructions Recorded Confirmed Last Taken Type Aspirin EC 325 mg PO QDAY #30 tablet 03/06/19 Unknown Rx AtorvaSTATin [Lipitor] 40 mg PO QHS #30 tablet 03/06/19 Unknown Rx Famotidine [Pepcid] 20 mg PO DAILY #60 tablet 03/06/19 Unknown Rx ISOSORBIDE MONOnitrate [Imdur ER] 30 mg PO QDAY #30 tablet 03/06/19 Unknown Rx Insulin Regular, Human [HumuLIN R] 0 units SUB-Q ACHS units 03/06/19 Unknown Rx Losartan [Cozaar] 50 mg PO QDAY #30 tablet 03/06/19 Unknown Rx Spironolactone [Aldactone] 50 mg PO QDAY #30 tablet 03/06/19 Unknown Rx cloNIDine [Catapres] 0.3 mg PO TID #90 tablet 03/06/19 Unknown Rx hydrALAZINE [Apresoline TAB] 50 mg PO Q8HR #90 tablet 03/06/19 Unknown Rx Metoprolol [Lopressor TAB] 100 mg PO BID #60 tablet 03/08/19 Unknown Rx amLODIPine [Norvasc] 10 mg PO QDAY #30 tablet 03/08/19 Unknown Rx
[2019-03-09 15:18] LABS: Aldo/Plasma Renin Act Ratio 2.1 Ratio (0.9-28.9)
== END 2019-03-08 14:17 | disposition home or self-care (01) | DRG 682 ==
LOC: ED 23:12 → 4A 03-03 02:11 → CC1 03-03 07:55 → OBSVTOIN 03-03 09:24 → 4A 03-04 15:32
PROVIDERS: ADMIT Internal Medicine; ATTEND Internal Medicine
DX: N17.9 Acute kidney failure, unspecified (principal); I21.A1 Myocardial infarction type 2; I13.0 Hypertensive heart and chronic kidney disease with heart failure and stage 1 through stage 4 chronic kidney disease, or unspecified chronic kidney disease; I16.1 Hypertensive emergency; Z68.42 Body mass index [BMI] 45.0-49.9, adult; R79.89 Other specified abnormal findings of blood chemistry; I50.9 Heart failure, unspecified; E87.6 Hypokalemia; N18.9 Chronic kidney disease, unspecified; E11.22 Type 2 diabetes mellitus with diabetic chronic kidney disease; M10.9 Gout, unspecified; E66.01 Morbid (severe) obesity due to excess calories; D72.829 Elevated white blood cell count, unspecified; E83.51 Hypocalcemia; Z82.49 Family history of ischemic heart disease and other diseases of the circulatory system; Z91.14 Patient's other noncompliance with medication regimen; Z71.3 Dietary counseling and surveillance; Z86.73 Personal history of transient ischemic attack (TIA), and cerebral infarction without residual deficits; Z79.899 Other long term (current) drug therapy
CPT/HCPCS: 36415; 71045; 76770; 78452; 78582; 80048; 80061; 82088; 82570; 82962; 83735; 83880; 84133; 84156; 84300; 84484; 84550; 85014; 85018; 85025; 85027; 85049; 85379; 85610; 85730; 93005; 93010; 93017; 93306; G0378; A9270-GY; A9502; A9540; A9558; J0360; J1644; J1815; J1940; J2270; J2405; J2785; J3480; J7050

== ENCOUNTER 2019-05-11 18:55 | Inpatient (IN) | payer OTHER ==
[2019-05-11] MEDS ORDERED: HALOPERIDOL LACTATE 5 MG/1 ML INJ IM PRN (19:32)
[2019-05-11] MEDS ORDERED: LORazepam 2 MG/ML VIAL IM PRN (19:32)
[2019-05-11] MEDS ORDERED: SODIUM CHLORIDE 0.9% 1000 ML 1,000 ML IV ONE (19:32)
--- NOTE | 2019-05-11 19:35 | Emergency Department Report ---
ED General Adult HPI - General Chief complaint: Overdose Stated complaint: POSS OD Time Seen by Provider: 05/11/19 19:31 Source: patient, family, EMS (verbal report received from EMS.EMS records not available at time of chart dictation.), RN notes reviewed, old records reviewed Mode of arrival: Stretcher Limitations: Other (patient is not forthcoming with information) - History of Present Illness Initial comments: The patient is a 33-year-old gentleman. He has a history of obesity, hypertension, renal insufficiency, diabetes. He is brought to the hospital by emergency medical services after overdose on clonidine. It is unknown what time the ingestion took place apparently hes been depressed he denies physical pain he states hes been taking the clonidine (0.3 as per prior records) " all day." exact time of ingestion not known family called 911 -: unknown Radiation: other Quality: other Consistency: other Improves with: other Worsens with: other - Related Data Previous Rx's Medication Instructions Recorded Last Taken Type Aspirin EC 325 mg PO QDAY #30 tablet 03/06/19 Unknown Rx AtorvaSTATin [Lipitor] 40 mg PO QHS #30 tablet 03/06/19 Unknown Rx Famotidine [Pepcid] 20 mg PO DAILY #60 tablet 03/06/19 Unknown Rx ISOSORBIDE MONOnitrate [Imdur ER] 30 mg PO QDAY #30 tablet 03/06/19 Unknown Rx Insulin Regular, Human [HumuLIN R] 0 units SUB-Q ACHS units 03/06/19 Unknown Rx Losartan [Cozaar] 50 mg PO QDAY #30 tablet 03/06/19 Unknown Rx Spironolactone [Aldactone] 50 mg PO QDAY #30 tablet 03/06/19 Unknown Rx cloNIDine [Catapres] 0.3 mg PO TID #90 tablet 03/06/19 Unknown Rx hydrALAZINE [Apresoline TAB] 50 mg PO Q8HR #90 tablet 03/06/19 Unknown Rx Metoprolol [Lopressor TAB] 100 mg PO BID #60 tablet 03/08/19 Unknown Rx amLODIPine 10 mg PO QDAY #30 tablet 03/08/19 Unknown Rx Allergies Allergy/AdvReac Type Severity Reaction Status Date / Time ants Allergy Swelling Uncoded 01/24/16 10:50 ED Review of Systems ROS: Stated complaint: POSS OD Other details as noted in HPI Comment: patient not forthcomiung Constitutional: malaise Cardiovascular: denies: syncope Gastrointestinal: denies: abdominal pain Psychiatric: depression ED Past Medical Hx - Past Medical History Previous Medical History?: Yes Hx Hypertension: Yes Hx Congestive Heart Failure: No Hx Diabetes: Yes Hx Asthma: No Hx COPD: No Hx HIV: No Additional medical history: MORBID OBESITY - Surgical History Past Surgical History?: No - Social History Smoking Status: Never Smoker Substance Use Type: None - Medications Home Medications: Home Medications Medication Instructions Recorded Confirmed Last Taken Type Aspirin EC 325 mg PO QDAY #30 tablet 03/06/19 Unknown Rx AtorvaSTATin [Lipitor] 40 mg PO QHS #30 tablet 03/06/19 Unknown Rx Famotidine [Pepcid] 20 mg PO DAILY #60 tablet 03/06/19 Unknown Rx ISOSORBIDE MONOnitrate [Imdur ER] 30 mg PO QDAY #30 tablet 03/06/19 Unknown Rx Insulin Regular, Human [HumuLIN R] 0 units SUB-Q ACHS units 03/06/19 Unknown Rx Losartan [Cozaar] 50 mg PO QDAY #30 tablet 03/06/19 Unknown Rx Spironolactone [Aldactone] 50 mg PO QDAY #30 tablet 03/06/19 Unknown Rx cloNIDine [Catapres] 0.3 mg PO TID #90 tablet 03/06/19 Unknown Rx hydrALAZINE [Apresoline TAB] 50 mg PO Q8HR #90 tablet 03/06/19 Unknown Rx Metoprolol [Lopressor TAB] 100 mg PO BID #60 tablet 03/08/19 Unknown Rx amLODIPine 10 mg PO QDAY #30 tablet 03/08/19 Unknown Rx ED Physical Exam - General Limitations: Other (not answering question) General appearance: alert, obese - Head Head exam: Present: atraumatic, normocephalic - Eye Eye exam: Present: normal appearance - ENT ENT exam: Present: normal exam, normal orophraynx, mucous membranes moist, normal external ear exam - Neck Neck exam: Present: normal inspection, full ROM. Absent: tenderness, meningismus - Respiratory Respiratory exam: Present: normal lung sounds bilaterally. Absent: respiratory distress, wheezes, rales, rhonchi, stridor, chest wall tenderness - Cardiovascular Cardiovascular Exam: Present: regular rate, normal rhythm, normal heart sounds. Absent: bradycardia, tachycardia, irregular rhythm, systolic murmur, diastolic murmur, rubs, gallop - GI/Abdominal GI/Abdominal exam: Present: soft. Absent: distended, tenderness, guarding, rebound, rigid, pulsatile mass - Rectal Rectal exam: Present: deferred - Extremities Exam Extremities exam: Present: normal inspection, full ROM, other (there is no facial droop. The tongue is midline. Extraocular movements are intact bilaterally. There is 5 out of 5 strength in bilateral upper and lower extremities. Sensation is intact to light touch bilateral upper and lower extremities. There is no past-pointing. There is no pronator drift. There is normal [id number]. There is a normal gait.). Absent: pedal edema, joint swelling, calf tenderness - Back Exam Back exam: Present: normal inspection, full ROM. Absent: tenderness, CVA tenderness (R), CVA tenderness (L), vertebral tenderness - Neurological Exam Neurological exam: Present: alert, other (there is no facial droop. The tongue is midline. Extraocular movements are intact bilaterally. Speaking in full sentences. Hearing is grossly intact. 5 out of 5 strength bilateral upper and lower extremities. Sensation is intact to light touch bilateral upper and lower extremities.). Absent: motor sensory deficit - Psychiatric Psychiatric exam: Present: depressed, flat affect - Skin Skin exam: Present: warm, dry, intact, normal color. Absent: rash ED Course Vital Signs 05/11/19 19:29 Temperature 98.4 F Pulse Rate 82 Respiratory 22 Rate Blood Pressure 178/118 O2 Sat by Pulse 97 Oximetry - Reevaluation(s) Reevaluation #1: 05/11/19 22:34 Patient continued to talk, he is protecting his airway, blood pressure acc eptable, he is not in any acute distress at this time. Hospital physician, Dr. Donohue accepts ED Medical Decision Making - Lab Data Result diagrams: 05/11/19 20:02 05/11/19 20:02 Vital Signs 05/11/19 19:29 Temperature 98.4 F Pulse Rate 82 Respiratory 22 Rate Blood Pressure 178/118 O2 Sat by Pulse 97 Oximetry Lab Results 05/11/19 05/11/19 05/11/19 Range/Units 20:02 20:02 20:02 WBC 15.8 H (4.5-11.0) K/mm3 RBC 6.36 H (3.65-5.03) M/mm3 Hgb 15.7 H (11.8-15.2) gm/dl Hct 50.0 H (35.5-45.6) % MCV 79 L (84-94) fl MCH 25 L (28-32) pg MCHC 32 (32-34) % RDW 19.8 H (13.2-15.2) % Plt Count 677 H (140-440) K/mm3 PT 13.8 (12.2-14.9) Sec. INR 1.05 (0.87-1.13) Sodium 141 (137-145) mmol/L Potassium 4.3 (3.6-5.0) mmol/L Chloride 103.4 (98-107) mmol/L Carbon Dioxide 23 (22-30) mmol/L Anion Gap 19 mmol/L BUN 28 H (9-20) mg/dL Creatinine 2.4 H (0.8-1.5) mg/dL Estimated GFR 38 ml/min BUN/Creatinine Ratio 12 % Glucose 87 (75-100) mg/dL Calcium 9.4 (8.4-10.2) mg/dL Magnesium 2.20 (1.7-2.3) mg/dL Total Bilirubin 0.30 (0.1-1.2) mg/dL AST 24 (5-40) units/L ALT 22 (7-56) units/L Alkaline Phosphatase 56 (35-129) units/L Total Creatine Kinase 308 H (55-170) units/L Total Protein 8.8 H (6.3-8.2) g/dL Albumin 4.6 (3.9-5) g/dL Albumin/Globulin Ratio 1.1 % TSH (0.270-4.200) mlU/mL Salicylates (2.8-20.0) mg/dL Acetaminophen (10.0-30.0) ug/mL 05/11/19 05/11/19 05/11/19 Range/Units 20:02 20:02 20:02 WBC (4.5-11.0) K/mm3 RBC (3.65-5.03) M/mm3 Hgb (11.8-15.2) gm/dl Hct (35.5-45.6) % MCV (84-94) fl MCH (28-32) pg MCHC (32-34) % RDW (13.2-15.2) % Plt Count (140-440) K/mm3 PT (12.2-14.9) Sec. INR (0.87-1.13) Sodium (137-145) mmol/L Potassium (3.6-5.0) mmol/L Chloride (98-107) mmol/L Carbon Dioxide (22-30) mmol/L Anion Gap mmol/L BUN (9-20) mg/dL Creatinine (0.8-1.5) mg/dL Estimated GFR ml/min BUN/Creatinine Ratio % Glucose (75-100) mg/dL Calcium (8.4-10.2) mg/dL Magnesium (1.7-2.3) mg/dL Total Bilirubin (0.1-1.2) mg/dL AST (5-40) units/L ALT (7-56) units/L Alkaline Phosphatase (35-129) units/L Total Creatine Kinase (55-170) units/L Total Protein (6.3-8.2) g/dL Albumin (3.9-5) g/dL Albumin/Globulin Ratio % TSH 2.760 (0.270-4.200) mlU/mL Salicylates < 0.3 L (2.8-20.0) mg/dL Acetaminophen < 5.0 L (10.0-30.0) ug/mL - EKG Data -: EKG Interpreted by Ak EKG shows normal: sinus rhythm Rate: normal - EKG Data 05/11/19 21:39 sinus 84 bpm, left axis, qtc 464, poor r wave progression not a stemi 05/11/19 21:40 - Radiology Data Radiology results: pending, report reviewed, image reviewed xr chest within normal limits - Medical Decision Making Differential diagnosis, including but not limited to: Depression, overdose Assessment and plan: 33-year-old gentleman here with reported clonidine overdose. He is afebrile with reassuring vital signs, awake, moving 4 extremities, and protecting airway at this time. Psychiatric hold/1013 executed. Psychiatric consultation requested. Discussed with Dyan at the [facility], who recommends at least 24 hours of observation, supportive care, no specific antidote is recommended at this time. Hospital physician is paged to arrange admission Critical Care Time: Yes Critical care time in (mins) excluding proc time.: 35 Critical care attestation.: If time is entered above; I have spent that time in minutes in the direct care of this critically ill patient, excluding procedure time. ED Disposition Clinical Impression: Overdose, Suicidal deliberate poisoning, Renal insufficiency Disposition: OP ADMIT IP TO THIS HOSP Is pt being admited?: Yes Condition: Serious Referrals: PRIMARY CARE,MD [Primary Care Provider] - 3-5 Days
--- NOTE | 2019-05-11 20:11 | XRay Report ---
CHEST 1 VIEW INDICATION: overdose COMPARISON: 03/02/2019 FINDINGS: Support devices: None Heart: Upper limits of normal and unchanged Lungs/Pleura: No acute pulmonary or pleural findings. Pulmonary edema on the previous study is no jesusita damion apparent. IMPRESSION: 1. No acute disease. Signer Name: Lincoln Carrasco MD Signed: 05/11/2019 8:07 PM Workstation Name: [id number]
[2019-05-11 20:45] LABS: Hemoglobin 15.7 gm/dl (11.8-15.2); Mean Corpuscular HGB Conc 32 % (32-34); Mean Corpuscular Volume 79 fl (84-94); Platelet Count 677 K/mm3 (140-440); Red Blood Count 6.36 M/mm3 (3.65-5.03); Red Cell Distribution Width 19.8 % (13.2-15.2)
[2019-05-11 20:55] LABS: INR 1.05 (0.87-1.13)
[2019-05-11 21:02] LABS: Albumin 4.6 g/dL (3.9-5); Calcium 9.4 mg/dL (8.4-10.2)
[2019-05-11] MEDS ORDERED: ACETAMINOPHEN 325 MG TAB PO PRN (23:06)
[2019-05-11] MEDS ORDERED: MORPHINE 2 MG/1 ML INJ IV PRN (23:06)
[2019-05-11] MEDS ORDERED: DEXTROSE 50% IN WATER (25GM) 50 ML SYRINGE IV PRN (23:06)
[2019-05-11] MEDS ORDERED: ONDANSETRON 4 MG/2 ML INJ IV PRN (23:06)
[2019-05-11] MEDS ORDERED: MAGNESIUM HYDROXIDE (MOM) ORAL LIQD UDC PO PRN (23:06)
[2019-05-12 00:16] LABS: Bilirubin,Urine NEG (Negative); Blood,Urine NEG (Negative); Color,Urine Straw (Yellow); Urobilinogen,Urine < 2.0 mg/dL (<2.0); WBC,Urine < 1.0 /HPF (0.0-6.0)
[2019-05-12 00:24] LABS: Amphetamine Screen,Urine PRESUMPTIVE NEGATIVE; Benzodiazepines Screen,Urine PRESUMPTIVE NEGATIVE; Cannabinoid Screen,Urine PRESUMPTIVE NEGATIVE; Cocaine Screen,Urine PRESUMPTIVE NEGATIVE; Methadone Screen,Urine PRESUMPTIVE NEGATIVE; Opiate Screen,Urine PRESUMPTIVE NEGATIVE
[2019-05-12] MEDS: INSULIN LISPRO 100 UNIT/ML SUB-Q SCH ×4 (02:39→18:23)
--- NOTE | 2019-05-12 03:37 | History and Physical Report ---
History of Present Illness Date of examination: 05/11/19 Date of admission: 05/11/19 22:34 Chief complaint: Drug overdose History of present illness: 33-year-old -Italian male seen in the emergency room today with a complaint of intentional drug overdose. Patient is said to have taken an overdose of clonidine in an attempt to commit suicide. Number of pills and dosages unknown. Prior records indicates he has been taking 0.3 mg. Patient indicates feels like ending his life because of his multiple medical problems including depression. Poison control was consulted and recommendation is to monitor patient closely. Patient has been placed on 1013. Past History Past Medical History: diabetes, heart failure, hypertension Social history: alcohol abuse (Occasional alcohol intake) Family history: no significant family history Medications and Allergies Allergies Allergy/AdvReac Type Severity Reaction Status Date / Time ants Allergy Swelling Uncoded 01/24/16 10:50 Home Medications Medication Instructions Recorded Confirmed Last Taken Type AtorvaSTATin [Lipitor] 40 mg PO QHS #30 tablet 03/06/19 05/11/19 Unknown Rx Famotidine [Pepcid] 20 mg PO DAILY #60 tablet 03/06/19 05/11/19 Unknown Rx ISOSORBIDE MONOnitrate [Imdur ER] 30 mg PO QDAY #30 tablet 03/06/19 05/11/19 Unknown Rx Insulin Regular, Human [HumuLIN R] 0 units SUB-Q ACHS units 03/06/19 05/11/19 Unknown Rx Losartan [Cozaar] 50 mg PO QDAY #30 tablet 03/06/19 05/11/19 Unknown Rx Spironolactone [Aldactone] 50 mg PO QDAY #30 tablet 03/06/19 05/11/19 Unknown Rx cloNIDine [Catapres] 0.3 mg PO TID #90 tablet 03/06/19 05/11/19 Unknown Rx hydrALAZINE [Apresoline TAB] 50 mg PO Q8HR #90 tablet 03/06/19 05/11/19 Unknown Rx Metoprolol [Lopressor TAB] 100 mg PO BID #60 tablet 03/08/19 05/11/19 Unknown Rx amLODIPine 10 mg PO QDAY #30 tablet 03/08/19 05/11/19 Unknown Rx Active Meds: Active Medications Acetaminophen (Tylenol) 650 mg PO Q4H PRN PRN Reason: Pain MILD(1-3)/Fever >100.5/DOWNS Dextrose (D50w (25gm) Syringe) 0 ml IV Q30MIN PRN; Protocol PRN Reason: Hypoglycemia Haloperidol Lactate (Haldol) 5 mg IM Q6HR PRN PRN Reason: Agitation Sodium Chloride (Nacl 0.9% 1000 Ml) 1,000 mls @ 75 mls/hr IV DIRECT EFRAIN Insulin Human Lispro (Humalog) 0 unit SUB-Q Q6HR EFRAIN; Protocol Last Admin: 05/12/19 02:39 Dose: Not Given Documented by: Lorazepam (Ativan) 2 mg IM Q4HR PRN PRN Reason: Agitation Magnesium Hydroxide (Milk Of Magnesia) 30 ml PO Q4H PRN PRN Reason: Constipation Morphine Sulfate (Morphine) 2 mg IV Q4H PRN PRN Reason: Pain, Moderate (4-6) Ondansetron HCl (Zofran) 4 mg IV Q8H PRN PRN Reason: Nausea And Vomiting Sodium Chloride (Sodium Chloride Flush Syringe 10 Ml) 10 ml IV BID EFRAIN Sodium Chloride (Sodium Chloride Flush Syringe 10 Ml) 10 ml IV PRN PRN PRN Reason: LINE FLUSH Review of Systems Psychiatric: depression Exam - Constitutional Vitals: Temp Pulse Resp BP Pulse Ox 98.4 F 78 15 161/107 99 05/11/19 19:29 05/11/19 23:01 05/11/19 23:01 05/11/19 23:01 05/11/19 23:01 General appearance: Present: no acute distress, well-nourished, obese - EENT Eyes: Present: PERRL, EOM intact ENT: hearing intact, clear oral mucosa, dentition normal - Neck Neck: Present: supple, normal ROM - Respiratory Respiratory effort: normal Respiratory: bilateral: CTA - Cardiovascular Rhythm: regular Heart Sounds: Present: S1 & S2 - Extremities Extremities: no ischemia, pulses intact, pulses symmetrical, No edema Peripheral Pulses: within normal limits - Abdominal General gastrointestinal: Present: soft, non-tender, non-distended, normal bowel sounds - Integumentary Integumentary: Present: clear, warm, dry - Musculoskeletal Musculoskeletal: strength equal bilaterally - Psychiatric Psychiatric: appropriate mood/affect, cooperative, depressed - Neurologic Neurologic: CNII-XII intact, moves all extremities Results - Labs CBC & Chem 7: 05/12/19 05:44 05/11/19 20:02 Labs: Abnormal lab results 05/11/19 05/11/19 05/11/19 Range/Units 20:02 20:02 20:02 WBC 15.8 H (4.5-11.0) K/mm3 RBC 6.36 H (3.65-5.03) M/mm3 Hgb 15.7 H (11.8-15.2) gm/dl Hct 50.0 H (35.5-45.6) % MCV 79 L (84-94) fl MCH 25 L (28-32) pg RDW 19.8 H (13.2-15.2) % Plt Count 677 H (140-440) K/mm3 BUN 28 H (9-20) mg/dL Creatinine 2.4 H (0.8-1.5) mg/dL Total Creatine Kinase 308 H (55-170) units/L Total Protein 8.8 H (6.3-8.2) g/dL Salicylates < 0.3 L (2.8-20.0) mg/dL Acetaminophen (10.0-30.0) ug/mL 05/11/19 Range/Units 20:02 WBC (4.5-11.0) K/mm3 RBC (3.65-5.03) M/mm3 Hgb (11.8-15.2) gm/dl Hct (35.5-45.6) % MCV (84-94) fl MCH (28-32) pg RDW (13.2-15.2) % Plt Count (140-440) K/mm3 BUN (9-20) mg/dL Creatinine (0.8-1.5) mg/dL Total Creatine Kinase (55-170) units/L Total Protein (6.3-8.2) g/dL Salicylates (2.8-20.0) mg/dL Acetaminophen < 5.0 L (10.0-30.0) ug/mL Assessment and Plan - Patient Problems (1) Overdose Current Visit: Yes Status: Acute Plan to address problem: Patient has been placed on 1013. We will monitor closely and will request mental health evaluation. (2) Suicidal deliberate poisoning Current Visit: Yes Status: Acute Plan to address problem: Patient had an intentional overdose of clonidine. Will be closely monitored. (3) Diabetes mellitus type 2 in obese Current Visit: No Status: Chronic Plan to address problem: We will monitor Accu-Cheks and continue routine home medications. (4) DVT prophylaxis Current Visit: Yes Status: Acute Plan to address problem: Patient placed on subcutaneous heparin. (5) Full code status Current Visit: Yes Status: Acute
[2019-05-12 06:48] LABS: Basophils % (Auto) 0.3 % (0.0-1.8); Eosinophils # (Auto) 0.2 K/mm3 (0.0-0.4); Eosinophils % (Auto) 1.5 % (0.0-4.3); Hematocrit 41.2 % (35.5-45.6); Hemoglobin 13.2 gm/dl (11.8-15.2); Lymphocytes % (Auto) 27.1 % (13.4-35.0); Mean Corpuscular HGB Conc 32 % (32-34); Mean Corpuscular Volume 77 fl (84-94); Monocytes % (Auto) 7.1 % (0.0-7.3); Platelet Count 570 K/mm3 (140-440); Red Blood Count 5.33 M/mm3 (3.65-5.03); Red Cell Distribution Width 19.7 % (13.2-15.2)
[2019-05-12 06:57] LABS: INR 1.11 (0.87-1.13)
[2019-05-12 06:58] LABS: Partial Thromboplastin Time 32.8 Sec. (24.2-36.6)
[2019-05-12 07:18] LABS: Calcium 8.7 mg/dL (8.4-10.2)
[2019-05-12] MEDS: FAMOTIDINE 20 MG TAB PO SCH (10:34)
[2019-05-12] MEDS: LOSARTAN 50 MG TAB PO SCH (10:34)
[2019-05-12] MEDS: amLODIPine 10 MG TAB PO SCH (10:34)
[2019-05-12] MEDS: SPIRONOLACTONE 50 MG TAB PO SCH (10:35)
[2019-05-12] MEDS: METOPROLOL TARTRATE 100 MG TAB PO SCH ×2 (10:35→22:19)
--- NOTE | 2019-05-12 10:52 | Consultation ---
History of Present Illness - Reason for Consult Consult date: 05/12/19 Reason for consult: Overdose, mental health assessment - Chief Complaint Chief complaint: Drug overdose - History of Present Psychiatric Illness Admission note: Received patient aox3 and transferred to unit bed without any incidents. Sitter at bedside, Attempted to do admission assessment and patient refused to cooperate with sign writer hand. Kenji Blake is a 33 y/o male who was admitted from home for an overdose. He is lying in bed. Awake. Calm and cooperative. He makes fair eye contact. He says he took the pills because he was "tired of being sick, tired of everything." The patient was unable to tell me what he overdosed on. He replied, "I'm unsure what I took, lots of stuff," when asked. The patient denies ETOH or nicotine use. He also denies any street drug use. Mr. Blake denies SI/HI at this time. He says he's never tired to commit suicide or harm himself in any way in the past. He says "I just want to go home. Not going to hurt myself." He says he was "depressed the other day but feels alright today." Mr. Blake says he realizes taking the pills "was not a good move." He says he lives with his son and girlfriend and he has not fear or reservations about going home or being at his home. He denies hallucinations of any kind. He says his appetite is "always pretty good." He says he usually sleeps "okay." PAST PSYCHIATRIC HISTORY: The patient denies any past psychiatric history PAST MEDICAL HISTORY: HTN, ESRD, CHF, DM Family Psychiatric History None reported or documented SOCIAL HISTORY Marital Status: Single Living Arrangements: with son and girlfriend Employment Status: Unemployed Access to guns/weapons: Denies Education: 12th grade History of Abuse: Denies Legal History: Denies ROS: Constitutional: Negative for weight loss ENT: Negative for stridor Respiratory: Negative for cough or hemoptysis All other systems reviewed and are negative MENTAL STATUS General Appearance and Behavior: age appropriate, eye contact fair Cooperation: calm and Cooperative Psychomotor Behavior: within normal limits Mood: alright Affect and affective range: Congruent with stated mood Thought Process: Fluent/Logical and Goal-directed Thought Content: Within reality Speech: Normal volume and Regular rate and rhythm Intellectual Functioning Average Suicidal Ideation: Denies SI Homicidal Ideation: Denies HI Impulse Control: intact Insight and Judgment: normal insight and judgment Memory: Normal Attention: Normal Orientation: A/O x 4 Assessment Overdose RECOMMENDATIONS MEDICAL: Per primary team Defer to primary team DISPOSITION: Per primary team, no indication for acute inpatient psychiatric hos pitalization at this time. The patient may be discharge home once medically cleared. FOLLOW-UP: Will sign off Thank you for this consult. Medications and Allergies Allergies Allergy/AdvReac Type Severity Reaction Status Date / Time ants Allergy Swelling Uncoded 01/24/16 10:50 Home Medications Medication Instructions Recorded Confirmed Last Taken Type AtorvaSTATin [Lipitor] 40 mg PO QHS #30 tablet 03/06/19 05/11/19 Unknown Rx Famotidine [Pepcid] 20 mg PO DAILY #60 tablet 03/06/19 05/11/19 Unknown Rx ISOSORBIDE MONOnitrate [Imdur ER] 30 mg PO QDAY #30 tablet 03/06/19 05/11/19 Unknown Rx Insulin Regular, Human [HumuLIN R] 0 units SUB-Q ACHS units 03/06/19 05/11/19 Unknown Rx Losartan [Cozaar] 50 mg PO QDAY #30 tablet 03/06/19 05/11/19 Unknown Rx Spironolactone [Aldactone] 50 mg PO QDAY #30 tablet 03/06/19 05/11/19 Unknown Rx cloNIDine [Catapres] 0.3 mg PO TID #90 tablet 03/06/19 05/11/19 Unknown Rx hydrALAZINE [Apresoline TAB] 50 mg PO Q8HR #90 tablet 03/06/19 05/11/19 Unknown Rx Metoprolol [Lopressor TAB] 100 mg PO BID #60 tablet 03/08/19 05/11/19 Unknown Rx amLODIPine 10 mg PO QDAY #30 tablet 03/08/19 05/11/19 Unknown Rx Active Meds: Active Medications Acetaminophen (Tylenol) 650 mg PO Q4H PRN PRN Reason: Pain MILD(1-3)/Fever >100.5/DOWNS Amlodipine Besylate (Amlodipine) 10 mg PO QDAY EFRAIN Last Admin: 05/12/19 10:34 Dose: 10 mg Documented by: Atorvastatin Calcium (Lipitor) 40 mg PO QHS [facility] Dextrose (D50w (25gm) Syringe) 0 ml IV Q30MIN PRN; Protocol PRN Reason: Hypoglycemia Famotidine (Pepcid) 20 mg PO DAILY [facility] Last Admin: 05/12/19 10:34 Dose: 20 mg Documented by: Haloperidol Lactate (Haldol) 5 mg IM Q6HR PRN PRN Reason: Agitation Hydralazine HCl (Apresoline) 50 mg PO Q8HR [facility] Sodium Chloride (Nacl 0.9% 1000 Ml) 1,000 mls @ 75 mls/hr IV DIRECT [facility] Insulin Human Lispro (Humalog) 0 unit SUB-Q Q6HR [facility]; Protocol Last Admin: 05/12/19 08:00 Dose: Not Given Documented by: Isosorbide Mononitrate (Imdur) 30 mg PO QDAY [facility] Last Admin: 05/12/19 10:35 Dose: 30 mg Documented by: Lorazepam (Ativan) 2 mg IM Q4HR PRN PRN Reason: Agitation Losartan Potassium (Cozaar) 50 mg PO QDAY [facility] Last Admin: 05/12/19 10:34 Dose: 50 mg Documented by: Magnesium Hydroxide (Milk Of Magnesia) 30 ml PO Q4H PRN PRN Reason: Constipation Metoprolol Tartrate (Metoprolol) 100 mg PO BID [facility] Last Admin: 05/12/19 10:35 Dose: 100 mg Documented by: Morphine Sulfate (Morphine) 2 mg IV Q4H PRN PRN Reason: Pain, Moderate (4-6) Ondansetron HCl (Zofran) 4 mg IV Q8H PRN PRN Reason: Nausea And Vomiting Sodium Chloride (Sodium Chloride Flush Syringe 10 Ml) 10 ml IV BID [facility] Last Admin: 05/12/19 10:36 Dose: 10 ml Documented by: Sodium Chloride (Sodium Chloride Flush Syringe 10 Ml) 10 ml IV PRN PRN PRN Reason: LINE FLUSH Spironolactone (Aldactone) 50 mg PO QDAY [facility] Last Admin: 05/12/19 10:35 Dose: 50 mg Documented by: Mental Status Exam - Vital signs Last Vital Signs Temp 98.9 F 05/12/19 07:16 Pulse 78 05/12/19 10:35 Resp 18 05/12/19 07:16 BP 146/90 05/12/19 10:35 Pulse Ox 96 05/12/19 07:16 Results Result Diagrams: 05/12/19 05:44 05/12/19 05:44 Abnormal lab results 05/11/19 05/11/19 05/11/19 Range/Units 20:02 20:02 20:02 WBC 15.8 H (4.5-11.0) K/mm3 RBC 6.36 H (3.65-5.03) M/mm3 Hgb 15.7 H (11.8-15.2) gm/dl Hct 50.0 H (35.5-45.6) % MCV 79 L (84-94) fl MCH 25 L (28-32) pg RDW 19.8 H (13.2-15.2) % Plt Count 677 H (140-440) K/mm3 [place] # (0.0-0.8) K/mm3 Seg Neutrophils # (1.8-7.7) K/mm3 Carbon Dioxide (22-30) mmol/L BUN 28 H (9-20) mg/dL Creatinine 2.4 H (0.8-1.5) mg/dL Glucose (75-100) mg/dL Total Creatine Kinase 308 H (55-170) units/L Total Protein 8.8 H (6.3-8.2) g/dL Salicylates < 0.3 L (2.8-20.0) mg/dL Acetaminophen (10.0-30.0) ug/mL 05/11/19 05/12/19 05/12/19 Range/Units 20:02 05:44 05:44 WBC 14.7 H (4.5-11.0) K/mm3 RBC 5.33 H (3.65-5.03) M/mm3 Hgb (11.8-15.2) gm/dl Hct (35.5-45.6) % MCV 77 L (84-94) fl MCH 25 L (28-32) pg RDW 19.7 H (13.2-15.2) % Plt Count 570 H (140-440) K/mm3 [place] # 1.0 H (0.0-0.8) K/mm3 Seg Neutrophils # 9.4 H (1.8-7.7) K/mm3 Carbon Dioxide 21 L (22-30) mmol/L BUN 27 H (9-20) mg/dL Creatinine 2.2 H (0.8-1.5) mg/dL Glucose 114 H (75-100) mg/dL Total Creatine Kinase (55-170) units/L Total Protein (6.3-8.2) g/dL Salicylates (2.8-20.0) mg/dL Acetaminophen < 5.0 L (10.0-30.0) ug/mL All other labs normal.
[2019-05-12] MEDS: hydrALAZINE 25 MG TAB PO SCH ×2 (14:03→22:19)
--- NOTE | 2019-05-12 16:23 | Event Note ---
Date: 05/12/19 Patient seen and evaluated Cont iv fluids
[2019-05-12] MEDS: SODIUM CHLORIDE 0.9% 1000 ML 1,000 ML IV SCH (19:55)
[2019-05-13] MEDS ORDERED: hydrALAZINE 20 MG/1 ML INJ IV PRN (00:22)
[2019-05-13] MEDS: INSULIN LISPRO 100 UNIT/ML SUB-Q SCH ×3 (00:40→15:13)
[2019-05-13] MEDS: hydrALAZINE 25 MG TAB PO SCH ×2 (05:03→15:28)
[2019-05-13] MEDS: SODIUM CHLORIDE 0.9% 1000 ML 1,000 ML IV SCH (07:27)
[2019-05-13] MEDS: FAMOTIDINE 20 MG TAB PO SCH (09:45)
[2019-05-13] MEDS: LOSARTAN 50 MG TAB PO SCH (09:45)
[2019-05-13] MEDS: SPIRONOLACTONE 50 MG TAB PO SCH (09:47)
[2019-05-13] MEDS: METOPROLOL TARTRATE 100 MG TAB PO SCH (09:48)
[2019-05-13] MEDS: amLODIPine 10 MG TAB PO SCH (15:04)
--- NOTE | 2019-05-13 15:09 | Discharge Summary ---
Providers - Providers Date of Admission: 05/12/19 11:16 Date of discharge: 05/13/19 Attending physician: LACHELLE LOVING 05/11/19 Consult to Case Management [CONS] Routine Services Needed at Discharge: Other Notified:: cm notified Comment:: mental health eval.&referral 05/11/19 19:32 Consult to Mental Health [CONS] Urgent Reason For Exam: psych Place consult to:: product safety associate railroad commissioner Notified:: awaiting call back Primary care physician: TRAFFIC SIGN SUPERVISOR Hospitalization Condition: Serious Hospital course: Admission note: Received patient aox3 and transferred to unit bed without any incidents. Sitter at bedside, Attempted to do admission assessment and patient refused to cooperate with grant writer. Kenji Blake is a 33 y/o male who was admitted from home for an overdose. He is lying in bed. Awake. Calm and cooperative. He makes fair eye contact. He says he took the pills because he was "tired of being sick, tired of everything." The patient was unable to tell me what he overdosed on. He replied, "I'm unsure what I took, lots of stuff," when asked. The patient denies ETOH or nicotine use. He also denies any street drug use. Mr. Blake denies SI/HI at this time. He says he's never tired to commit suicide or harm himself in any way in the past. He says "I just want to go home. Not going to hurt myself." He says he was "depressed the other day but feels alright today." Mr. Blake says he realizes taking the pills "was not a good move." He says he lives with his son and girlfriend and he has not fear or reservations about going home or being at his home. He denies hallucinations of any kind. He says his appetite is "always pretty good." He says he usually sleeps "okay." (1) Overdose Current Visit: Yes Status: Acute Plan to address problem: Patient has been placed on 1013. We will monitor closely and will request mental health evaluation. Stable Cleared for discharge by psychiary (2) Suicidal deliberate poisoning Current Visit: Yes Status: Acute Plan to address problem: Patient had an intentional overdose of clonidine. Stable No suicidal ideation (3) Diabetes mellitus type 2 in obese Current Visit: No Status: Chronic Plan to address problem: Cont Home insulin (4)Htn Cont antihypertensives Disposition: DC-01 TO HOME OR SELFCARE Core Measure Documentation - Palliative Care Palliative Care/ Comfort Measures: Not Applicable - Core Measures Any of the following diagnoses?: none Exam - Constitutional Vitals: Temp Pulse Resp BP Pulse Ox 97.8 F 86 19 144/88 96 05/13/19 08:54 05/13/19 09:48 05/13/19 08:54 05/13/19 09:48 05/13/19 08:54 General appearance: Present: no acute distress, well-nourished - EENT Eyes: Present: PERRL ENT: hearing intact, clear oral mucosa - Neck Neck: Present: supple, normal ROM - Respiratory Respiratory effort: normal Respiratory: bilateral: CTA - Cardiovascular Heart rate: 68 Rhythm: regular Heart Sounds: Present: S1 & S2. Absent: rub, click - Extremities Extremities: no ischemia, pulses intact, pulses symmetrical, No edema Peripheral Pulses: within normal limits - Abdominal General gastrointestinal: Present: soft, non-tender, non-distended, normal bowel sounds Male genitourinary: Present: normal - Rectal Rectal Exam: deferred - Integumentary Integumentary: Present: clear, warm, dry - Musculoskeletal Musculoskeletal: gait normal, strength equal bilaterally - Psychiatric Psychiatric: appropriate mood/affect, intact judgment & insight - Neurologic Neurologic: CNII-XII intact, moves all extremities - Allied Health Allied health notes reviewed: nursing, case management Plan Activity: no restrictions Diet: low fat, low cholesterol, low salt Follow up with: PRIMARY CARE, [Primary Care Provider] - 3-5 Days
[2019-05-13 15:30] VITALS: BP 159/104
== END 2019-05-13 15:50 | disposition home or self-care (01) | DRG 918 ==
LOC: ED 18:55 → 4A 22:34 → OBSVTOIN 05-12 11:16
PROVIDERS: ADMIT Internal Medicine Geriatric Medicine; ATTEND Internal Medicine
DX: T50.902A Poisoning by unspecified drugs, medicaments and biological substances, intentional self-harm, initial encounter (principal); Z68.42 Body mass index [BMI] 45.0-49.9, adult; I13.0 Hypertensive heart and chronic kidney disease with heart failure and stage 1 through stage 4 chronic kidney disease, or unspecified chronic kidney disease; Y92.89 Other specified places as the place of occurrence of the external cause; E66.01 Morbid (severe) obesity due to excess calories; I50.9 Heart failure, unspecified; I11.0 Hypertensive heart disease with heart failure; E11.22 Type 2 diabetes mellitus with diabetic chronic kidney disease; N18.9 Chronic kidney disease, unspecified; Z79.82 Long term (current) use of aspirin; Z79.4 Long term (current) use of insulin
CPT/HCPCS: 36415; 71045; 80048; 80053; 80307; 80320; 81001; 82550; 82962; 83735; 84443; 85025; 85027; 85610; 85730; 93005; 93010; G0378; A9270-GY; G0480; J0360; J7030

== ENCOUNTER 2021-04-18 10:53 | Inpatient (IN) | payer SELFPAY ==
[2021-04-18] MEDS ORDERED: hydrALAZINE 20 MG/1 ML INJ IV ONE ×2 (11:18→17:28)
--- NOTE | 2021-04-18 11:34 | Emergency Department Report ---
HPI - General Chief Complaint: Psych Time Seen by Provider: 04/18/21 11:18 - HPI HPI: 35-year-old -[place] female presents to the emergency department via EMS after he appeared to be walking into traffic with an attempt to harm himself. He was seen by a road construction crew who called 911. Apparently the patient admitted this intent to EMS. At the time of my examination the patient is not very forthcoming. He does admit to some type of psychiatric history but denies having any history of bipolar disorder or schizophrenia. It appears that the patient was evaluated here about 2 years ago after some type of unknown overdose attempt. Patient presents with extremely elevated blood pressure. He does admit to a history of blood pressure for which he is on carvedilol, hydralazine, and currently has a Catapres patch on. He also appears to have a history of chronic kidney disease, previous TIA, and [id number] diabetes. ED Past Medical Hx - Past Medical History Previous Medical History?: Yes Hx Hypertension: Yes Hx Congestive Heart Failure: No Hx Diabetes: Yes Hx Asthma: No Hx COPD: No Hx HIV: No Additional medical history: MORBID OBESITY - Social History Smoking Status: Never Smoker - Medications Home Medications: Home Medications Medication Instructions Recorded Confirmed Last Taken Type AtorvaSTATin [Lipitor] 40 mg PO QHS #30 tablet 03/06/19 05/11/19 Unknown Rx Famotidine [Pepcid] 20 mg PO DAILY #60 tablet 03/06/19 05/11/19 Unknown Rx ISOSORBIDE MONOnitrate [Imdur ER] 30 mg PO QDAY #30 tablet 03/06/19 05/11/19 Unknown Rx Insulin Regular, Human [HumuLIN R] 0 units SUB-Q ACHS units 03/06/19 05/11/19 Unknown Rx Losartan [Cozaar] 50 mg PO QDAY #30 tablet 03/06/19 05/11/19 Unknown Rx Spironolactone [Aldactone] 50 mg PO QDAY #30 tablet 03/06/19 05/11/19 Unknown Rx cloNIDine [Catapres] 0.3 mg PO TID #90 tablet 03/06/19 05/11/19 Unknown Rx hydrALAZINE [Apresoline TAB] 50 mg PO Q8HR #90 tablet 03/06/19 05/11/19 Unknown Rx Metoprolol [Lopressor TAB] 100 mg PO BID #60 tablet 03/08/19 05/11/19 Unknown Rx amLODIPine 10 mg PO QDAY #30 tablet 03/08/19 05/11/19 Unknown Rx ED Review of Systems ROS: Stated complaint: SI Other details as noted in HPI Comment: All other systems reviewed and negative Constitutional: denies: chills, fever Respiratory: denies: cough, shortness of breath Cardiovascular: denies: chest pain, palpitations Gastrointestinal: denies: abdominal pain, vomiting Musculoskeletal: denies: back pain, joint swelling Neurological: denies: headache, weakness Psychiatric: suicidal thoughts. denies: auditory hallucinations, visual hallucinations Physical Exam - Physical Exam Vital Signs: Vital Signs 04/18/21 10:57 Temperature 99.4 F Pulse Rate 110 H Respiratory 16 Rate Blood Pressure 230/168 [Left] O2 Sat by Pulse 96 Oximetry Physical Exam: GENERAL: The patient is well-developed well-nourished. HENT: Normocephalic. Atraumatic. Patient has moist mucous membranes. EYES: Extraocular motions are intact. NECK: Supple. Trachea is midline. CHEST/LUNGS: Clear to auscultation. There is no respiratory distress noted. HEART/CARDIOVASCULAR: Regular. There is no tachycardia. There is no murmur. ABDOMEN: Abdomen is soft, nontender. Patient has normal bowel sounds. SKIN: Skin is warm and dry. NEURO: The patient is awake, alert, and oriented. The patient has no focal neurologic deficits. Normal speech. MUSCULOSKELETAL: There is no tenderness or deformity. There is no limitation range of motion. PSYCH: Patient appears irritated. He is not forthcoming with information. ED Course Vital Signs 04/18/21 10:57 Temperature 99.4 F Pulse Rate 110 H Respiratory 16 Rate Blood Pressure 230/168 [Left] O2 Sat by Pulse 96 Oximetry - Consultations Consultation #1: 04/18/21 15:24 I spoke to the insulation technician on-call, Dr. Guerrero. She feels that the patient has acute on chronic renal insufficiency and it is a progression from 2019 given the patient's uncontrolled blood pressure. However she does not feel that the patient requires admission to the hospital for this. If the patient is able to be medically cleared for psych, and the patient can follow-up with them in the office upon discharge. ED Medical Decision Making - Lab Data Result diagrams: 04/18/21 12:12 04/18/21 12:12 Lab Results 04/18/21 04/18/21 04/18/21 Range/Units 12:12 12:12 12:12 WBC 14.6 H (4.5-11.0) K/mm3 RBC 6.23 H (3.65-5.03) M/mm3 Hgb 15.4 H (11.8-15.2) gm/dl Hct 49.3 H (35.5-45.6) % MCV 79 L (84-94) fl MCH 25 L (28-32) pg MCHC 31 L (32-34) % RDW 18.8 H (13.2-15.2) % Plt Count 313 (140-440) K/mm3 Lymph % (Auto) 9.5 L (13.4-35.0) % [place] % (Auto) 2.7 (0.0-7.3) % Eos % (Auto) 0.1 (0.0-4.3) % Baso % (Auto) 0.5 (0.0-1.8) % Lymph # (Auto) 1.4 (1.2-5.4) K/mm3 [place] # (Auto) 0.4 (0.0-0.8) K/mm3 Eos # (Auto) 0.0 (0.0-0.4) K/mm3 Baso # (Auto) 0.1 (0.0-0.1) K/mm3 Seg Neutrophils % 87.2 H (40.0-70.0) % Seg Neutrophils # 12.7 H (1.8-7.7) K/mm3 Sodium 138 (137-145) mmol/L Potassium 3.6 (3.6-5.0) mmol/L Chloride 99.9 (98-107) mmol/L Carbon Dioxide 21 L (22-30) mmol/L Anion Gap 21 mmol/L BUN 37 H (9-20) mg/dL Creatinine 3.0 H (0.8-1.3) mg/dL Estimated GFR 29 ml/min BUN/Creatinine Ratio 12 % Glucose 143 H (75-100) mg/dL Calcium 8.2 L (8.4-10.2) mg/dL Plasma/Serum Alcohol < 0.01 (0-0.07) % - Radiology Data Radiology results: report reviewed CT head/brain wo con INDICATION / CLINICAL INFORMATION: 35 years Male; headache, Hypertensive urgency. TECHNIQUE: Routine CT head without contrast. All CT scans at this location are performed using CT dose reduction for ALARA by means of automated exposure control. COMPARISON: None. FINDINGS: BRAIN / INTRACRANIAL CONTENTS: No acute hemorrhage, mass effect, midline shift, hydrocephalus, or acute, large territorial infarct. There are minimal to mild areas of decreased attenuation in the white matter of the cerebral hemispheres. These are nonspecific findings and may be related to demyelinating disease, microangiopathy (hypertension, diabetes, atherosclerosis), etc. given the patient's age. No significant white matter abnormality seen. CRANIOCERVICAL JUNCTION: No significant abnormality. ORBITS: No significant abnormality of visualized orbits. SINUSES / MASTOIDS: Visualized paranasal sinuses and mastoid air cells are essentially clear. ADDITIONAL FINDINGS: None. IMPRESSION: 1. No focal mass, hemorrhage, hydrocephalus, or acute, large territorial infarct. - Medical Decision Making This patient presented to the emergency department after he was seen walking long [facility] and heading into traffic. Some road construction workers saw this occur and called EMS. Initially EMS says that they heard the patient states that he was suicidal. For this reason the patient was made a 1013 and placed on ED hold. The patient presents with extremely elevated blood pressure. He does have a history of hypertension with medication noncompliance. He was given some hydralazine without much change. The patient was later given 20 mg of labetalol, once again without any change in his blood pressure. At this point the patient complained of some headache. There was no focal, motor or sensory deficit and his cranial nerves are intact. He had a CT scan of the head without contrast that did not show any hemorrhage, large vessel occlusion, or any other acute process. Patient's labs are remarkable for a mild leukocytosis of 14,000, and acute on chronic renal insufficiency with a creatinine level of about 3. As the patient's blood pressure is extremely elevated despite antihypertensive medication given, the patient will not be able to be medically cleared for psychiatric placement. The patient will be admitted to the hospital for further evaluation and treatment was accepted for admission by the hospitalist, Dr. Carreon. Critical Care Time: No Critical care attestation.: If time is entered above; I have spent that time in minutes in the direct care of this critically ill patient, excluding procedure time. ED Disposition Clinical Impression: Hypertensive emergency, [id number] kidney injury, Suicidal ideations Disposition: ADMITTED INPATIENT Is pt being admited?: Yes Condition: Serious Time of Disposition: 17:18
[2021-04-18] MEDS ORDERED: ZIPRASIDONE MESYLATE 20 MG VIAL IM ONE (12:19)
[2021-04-18 12:41] LABS: Calcium 8.2 mg/dL (8.4-10.2)
[2021-04-18 12:57] LABS: Basophils # (Auto) 0.1 K/mm3 (0.0-0.1); Basophils % (Auto) 0.5 % (0.0-1.8); Eosinophils % (Auto) 0.1 % (0.0-4.3); Lymphocytes # (Auto) 1.4 K/mm3 (1.2-5.4); Lymphocytes % (Auto) 9.5 % (13.4-35.0); Mean Corpuscular HGB Conc 31 % (32-34); Mean Corpuscular Volume 79 fl (84-94); Monocytes # (Auto) 0.4 K/mm3 (0.0-0.8); Monocytes % (Auto) 2.7 % (0.0-7.3); Platelet Count 313 K/mm3 (140-440); Red Blood Count 6.23 M/mm3 (3.65-5.03); Red Cell Distribution Width 18.8 % (13.2-15.2)
[2021-04-18 13:05] LABS: Hematocrit 49.3 % (35.5-45.6); Hemoglobin 15.4 gm/dl (11.8-15.2)
[2021-04-18 16:19] LABS: Bacteria,Urine 1+ /HPF (Negative); Bilirubin,Urine NEG (Negative); Blood,Urine SM (Negative); Color,Urine Straw (Yellow); Urobilinogen,Urine < 2.0 mg/dL (<2.0); WBC,Urine < 1.0 /HPF (0.0-6.0)
[2021-04-18 16:28] LABS: Amphetamine Screen,Urine Negative; Benzodiazepines Screen,Urine Negative; Cannabinoid Screen,Urine Negative; Cocaine Screen,Urine Negative; Methadone Screen,Urine Negative; Opiate Screen,Urine Negative
--- NOTE | 2021-04-18 17:14 | Cat Scan Report ---
. CT head/brain wo con INDICATION / CLINICAL INFORMATION: 35 years Male; headache, Hypertensive urgency. TECHNIQUE: Routine CT head without contrast. All CT scans at this location are performed using CT dos e reduction for ALARA by means of automated exposure control. COMPARISON: None. FINDINGS: BRAIN / INTRACRANIAL CONTENTS: No acute hemorrhage, mass effect, midline shift, hydrocephalus, or acu te, large territorial infarct. There are minimal to mild areas of decreased attenuation in the white matter of the cerebral hemisphe res. These are nonspecific findings and may be related to demyelinating disease, microangiopathy (hyp ertension, diabetes, atherosclerosis), etc. given the patient's age. No significant white matter abno rmality seen. CRANIOCERVICAL JUNCTION: No significant abnormality. ORBITS: No significant abnormality of visualized orbits. SINUSES / MASTOIDS: Visualized paranasal sinuses and mastoid air cells are essentially clear. ADDITIONAL FINDINGS: None. IMPRESSION: 1. No focal mass, hemorrhage, hydrocephalus, or acute, large territorial infarct. Signer Name: Marquise Kumar MD, III Signed: 04/18/2021 5:09 PM Workstation Name: [facility] [place] [id number]
[2021-04-18] MEDS ORDERED: oxyCODONE /ACETAMINOPHEN 5-325MG TAB PO PRN (19:22)
[2021-04-18] MEDS ORDERED: PROMETHAZINE 25 MG RECT SUPP PR PRN (19:22)
[2021-04-18] MEDS ORDERED: METOCLOPRAMIDE 10 MG/2 ML INJ IV PRN (19:22)
[2021-04-18] MEDS ORDERED: ACETAMINOPHEN 325 MG TAB PO PRN (19:22)
[2021-04-18] MEDS ORDERED: ONDANSETRON 4 MG/2 ML INJ IV PRN (19:22)
[2021-04-18] MEDS ORDERED: hydrALAZINE 20 MG/1 ML INJ IV PRN (19:26)
--- NOTE | 2021-04-18 19:36 | History and Physical Report ---
History of Present Illness Date of examination: 04/18/21 Date of admission: 04/18/21 17:18 Chief complaint: Suicidal thoughts and attempt History of present illness: 35-year-old -[place] male presents to the emergency department via EMS when he was trying to walk into traffic with an attempt to harm himself. 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 Patient is admitted suicidal intent and talk to EMS. Patient is alert and oriented. Did not admit to any suicidal thoughts to me. Patient has psychiatric history. Has history of bipolar disorder and schizophrenia. Patient had unknown overdose attempt about 2 years ago In the ED course--patient had extremely elevated blood pressure levels of 249/149 and could not be brought down-hence admission - Past Medical History Previous Medical History?: Yes --Hypertension: Yes --Diabetes: Yes --Additional medical history: MORBID OBESITY - Social History --Smoking Status: Never Smoker - Medications --Home Medications: Home Medications Medication Instructions Recorded Confirmed Last Taken Type AtorvaSTATin [Lipitor] 40 mg PO QHS #30 tablet 03/06/19 05/11/19 Unknown Rx Famotidine [Pepcid] 20 mg PO DAILY #60 tablet 03/06/19 05/11/19 Unknown Rx ISOSORBIDE MONOnitrate [Imdur ER] 30 mg PO QDAY #30 tablet 03/06/19 05/11/19 Unknown Rx Insulin Regular, Human [HumuLIN R] 0 units SUB-Q ACHS units 03/06/19 05/11/19 Unknown Rx Losartan [Cozaar] 50 mg PO QDAY #30 tablet 03/06/19 05/11/19 Unknown Rx Spironolactone [Aldactone] 50 mg PO QDAY #30 tablet 03/06/19 05/11/19 Unknown Rx cloNIDine [Catapres] 0.3 mg PO TID #90 tablet 03/06/19 05/11/19 Unknown Rx hydrALAZINE [Apresoline TAB] 50 mg PO Q8HR #90 tablet 03/06/19 05/11/19 Unknown Rx Metoprolol [Lopressor TAB] 100 mg PO BID #60 tablet 03/08/19 05/11/19 Unknown Rx amLODIPine 10 mg PO QDAY #30 tablet 03/08/19 05/11/19 Unknown Rx Review of Systems ROS: Stated complaint: SI Other details as noted in HPI Comment: All other systems reviewed and negative Constitutional: denies: chills, fever Respiratory: denies: cough, shortness of breath Cardiovascular: denies: chest pain, palpitations Gastrointestinal: denies: abdominal pain, vomiting Musculoskeletal: denies: back pain, joint swelling Neurological: denies: headache, weakness Psychiatric: suicidal thoughts. denies: auditory hallucinations, visual hallucinations Medications and Allergies Allergies Allergy/AdvReac Type Severity Reaction Status Date / Time ants Allergy Swelling Uncoded 01/24/16 10:50 Home Medications Medication Instructions Recorded Confirmed Last Taken Type AtorvaSTATin [Lipitor] 40 mg PO QHS #30 tablet 03/06/19 05/11/19 Unknown Rx Famotidine [Pepcid] 20 mg PO DAILY #60 tablet 03/06/19 05/11/19 Unknown Rx ISOSORBIDE MONOnitrate [Imdur ER] 30 mg PO QDAY #30 tablet 03/06/19 05/11/19 Unknown Rx Insulin Regular, Human [HumuLIN R] 0 units SUB-Q ACHS units 03/06/19 05/11/19 Unknown Rx Losartan [Cozaar] 50 mg PO QDAY #30 tablet 03/06/19 05/11/19 Unknown Rx Spironolactone [Aldactone] 50 mg PO QDAY #30 tablet 03/06/19 05/11/19 Unknown Rx cloNIDine [Catapres] 0.3 mg PO TID #90 tablet 03/06/19 05/11/19 Unknown Rx hydrALAZINE [Apresoline TAB] 50 mg PO Q8HR #90 tablet 03/06/19 05/11/19 Unknown Rx Metoprolol [Lopressor TAB] 100 mg PO BID #60 tablet 03/08/19 05/11/19 Unknown Rx amLODIPine 10 mg PO QDAY #30 tablet 03/08/19 05/11/19 Unknown Rx Exam - Constitutional Vitals: Temp Pulse Resp BP Pulse Ox 97.8 F 97 H 23 240/152 99 04/18/21 16:05 04/18/21 18:00 04/18/21 18:00 04/18/21 18:30 04/18/21 18:30 General appearance: Present: no acute distress, well-nourished - EENT Eyes: Present: PERRL ENT: hearing intact, clear oral mucosa - Neck Neck: Present: supple, normal ROM - Respiratory Respiratory effort: normal Respiratory: bilateral: CTA - Cardiovascular Heart rate: 78 Rhythm: regular Heart Sounds: Present: S1 & S2. Absent: rub, click - Extremities Extremities: pulses symmetrical, No edema Peripheral Pulses: within normal limits - Abdominal General gastrointestinal: Present: soft, non-tender, non-distended, normal bowel sounds Male genitourinary: Present: normal - Integumentary Integumentary: Present: clear, warm, dry - Musculoskeletal Musculoskeletal: gait normal, strength equal bilaterally - Psychiatric Psychiatric: appropriate mood/affect, intact judgment & insight - Neurologic Neurologic: CNII-XII intact, moves all extremities HEART Score - HEART Score History: Slightly suspicious Age: < 45 Risk factors: 1-2 risk factors Troponin: < normal limit - Critical Actions Critical Actions: 0-3 pts:0.9-1.7%risk of adverse cardiac event.Candidate for discharge Results - Labs CBC & Chem 7: 04/19/21 04:12 04/19/21 04:12 Labs: Laboratory Last Values WBC 14.6 K/mm3 (4.5-11.0) H 04/18/21 12:12 RBC 6.23 M/mm3 (3.65-5.03) H 04/18/21 12:12 Hgb 15.4 gm/dl (11.8-15.2) H 04/18/21 12:12 Hct 49.3 % (35.5-45.6) H 04/18/21 12:12 MCV 79 fl (84-94) L 04/18/21 12:12 MCH 25 pg (28-32) L 04/18/21 12:12 MCHC 31 % (32-34) L 04/18/21 12:12 RDW 18.8 % (13.2-15.2) H 04/18/21 12:12 Plt Count 313 K/mm3 (140-440) 04/18/21 12:12 Lymph % (Auto) 9.5 % (13.4-35.0) L 04/18/21 12:12 [place] % (Auto) 2.7 % (0.0-7.3) 04/18/21 12:12 Eos % (Auto) 0.1 % (0.0-4.3) 04/18/21 12:12 Baso % (Auto) 0.5 % (0.0-1.8) 04/18/21 12:12 Lymph # (Auto) 1.4 K/mm3 (1.2-5.4) 04/18/21 12:12 [place] # (Auto) 0.4 K/mm3 (0.0-0.8) 04/18/21 12:12 Eos # (Auto) 0.0 K/mm3 (0.0-0.4) 04/18/21 12:12 Baso # (Auto) 0.1 K/mm3 (0.0-0.1) 04/18/21 12:12 Seg Neutrophils % 87.2 % (40.0-70.0) H 04/18/21 12:12 Seg Neutrophils # 12.7 K/mm3 (1.8-7.7) H 04/18/21 12:12 Sodium 138 mmol/L (137-145) 04/18/21 12:12 Potassium 3.6 mmol/L (3.6-5.0) 04/18/21 12:12 Chloride 99.9 mmol/L (98-107) 04/18/21 12:12 Carbon Dioxide 21 mmol/L (22-30) L 04/18/21 12:12 Anion Gap 21 mmol/L 04/18/21 12:12 BUN 37 mg/dL (9-20) H 04/18/21 12:12 Creatinine 3.0 mg/dL (0.8-1.3) H 04/18/21 12:12 Estimated GFR 29 ml/min 04/18/21 12:12 BUN/Creatinine Ratio 12 % 04/18/21 12:12 Glucose 143 mg/dL (75-100) H 04/18/21 12:12 Calcium 8.2 mg/dL (8.4-10.2) L 04/18/21 12:12 Urine Color Straw (Yellow) 04/18/21 Unknown Urine Turbidity Clear (Clear) 04/18/21 Unknown Urine pH 7.0 (5.0-7.0) 04/18/21 Unknown Ur Specific [place] 1.008 (1.003-1.030) 04/18/21 Unknown Urine Protein 100 mg/dl mg/dL (Negative) 04/18/21 Unknown Urine Glucose (UA) Neg mg/dL (Negative) 04/18/21 Unknown Urine Ketones Neg mg/dL (Negative) 04/18/21 Unknown Urine Blood Sm (Negative) 04/18/21 Unknown Urine Nitrite Neg (Negative) 04/18/21 Unknown Urine Bilirubin Neg (Negative) 04/18/21 Unknown Urine Urobilinogen < 2.0 mg/dL (<2.0) 04/18/21 Unknown Ur Leukocyte Esterase Neg (Negative) 04/18/21 Unknown Urine WBC (Auto) < 1.0 /HPF (0.0-6.0) 04/18/21 Unknown Urine RBC (Auto) 2.0 /HPF (0.0-6.0) 04/18/21 Unknown U Epithel Cells (Auto) 2.0 /HPF (0-13.0) 04/18/21 Unknown Urine Bacteria (Auto) 1+ /HPF (Negative) 04/18/21 Unknown Urine Opiates Screen Negative 04/18/21 Unknown Urine Methadone Screen Negative 04/18/21 Unknown Ur Barbiturates Screen Negative 04/18/21 Unknown Ur Phencyclidine Scrn Negative 04/18/21 Unknown Ur Amphetamines Screen Negative 04/18/21 Unknown U Benzodiazepines Scrn Negative 04/18/21 Unknown Urine Cocaine Screen Negative 04/18/21 Unknown U Marijuana (THC) Screen Negative 04/18/21 Unknown Drugs of Abuse Note Disclamer 04/18/21 Unknown Plasma/Serum Alcohol < 0.01 % (0-0.07) 04/18/21 12:12 - Imaging and Cardiology EKG: report reviewed (LVH by voltage criteria) CT Scan - head: report reviewed (No acute findings) Assessment and Plan Assessment and plan: Full code Advance Directives: Yes - Patient Problems (1) Hypertensive emergency Current Visit: Yes Status: Acute Plan to address problem: Patient is noncompliant Losartan increased to 100 mg Continue hydralazine and clonidine Clonidine may be the cause of his rebound hypertension because of noncompliance (2) IDDM (insulin dependent diabetes mellitus) Current Visit: Yes Status: Chronic Plan to address problem: Continue insulin and coverage (3) Suicidal ideations Current Visit: Yes Status: Acute Plan to address problem: Psych and mental health consult requested patient is on 1013 (4) Morbid obesity Current Visit: Yes Status: Chronic Plan to address problem: Needs bariatric surgery consult as outpatient Follow-up with Dr. Jimenez as outpatient (5) Chronic kidney disease Current Visit: Yes Status: Chronic Qualifiers: Chronic kidney disease stage: stage 3 (moderate) Plan to address problem: Nephrology consult (6) DVT prophylaxis Current Visit: Yes Status: Acute Plan to address problem: On heparin and GI prophylaxis
[2021-04-19] MEDS: hydrALAZINE 25 MG TAB PO SCH ×4 (02:07→23:22)
[2021-04-19] MEDS: LOSARTAN 50 MG TAB PO SCH ×2 (02:09→10:36)
[2021-04-19] MEDS: cloNIDine 0.1 MG TAB PO SCH ×4 (02:10→22:18)
[2021-04-19] MEDS: amLODIPine 10 MG TAB PO SCH ×2 (02:11→10:36)
[2021-04-19] MEDS: FAMOTIDINE 20 MG TAB PO SCH ×2 (02:12→10:37)
[2021-04-19] MEDS: HEPARIN 5,000 UNIT/1 ML VIAL SUB-Q SCH ×3 (02:13→22:18)
[2021-04-19] MEDS: INSULIN LISPRO 100 UNIT/ML SUB-Q SCH ×5 (02:16→22:19)
[2021-04-19] MEDS: SPIRONOLACTONE 50 MG TAB PO SCH ×2 (02:39→10:36)
[2021-04-19] MEDS: METOPROLOL TARTRATE 100 MG TAB PO SCH ×3 (02:42→22:19)
[2021-04-19 04:38] LABS: Basophils # (Auto) 0.1 K/mm3 (0.0-0.1); Basophils % (Auto) 0.5 % (0.0-1.8); Eosinophils % (Auto) 0.1 % (0.0-4.3); Hematocrit 46.7 % (35.5-45.6); Hemoglobin 14.8 gm/dl (11.8-15.2); Lymphocytes # (Auto) 2.7 K/mm3 (1.2-5.4); Lymphocytes % (Auto) 15.1 % (13.4-35.0); Mean Corpuscular HGB Conc 32 % (32-34); Mean Corpuscular Volume 79 fl (84-94); Monocytes # (Auto) 1.3 K/mm3 (0.0-0.8); Monocytes % (Auto) 7.3 % (0.0-7.3); Platelet Count 317 K/mm3 (140-440); Red Blood Count 5.95 M/mm3 (3.65-5.03)
[2021-04-19 04:59] LABS: Albumin 3.7 g/dL (3.9-5); Calcium 8.1 mg/dL (8.4-10.2)
[2021-04-19] MEDS ORDERED: POTASSIUM CHLORIDE ER 20 MEQ TAB PO ONE (08:01)
--- NOTE | 2021-04-19 08:15 | Progress Note ---
Assessment and Plan Assessment and plan: History of present illness: 35-year-old -[place] male presents to the emergency department via EMS when he was trying to walk into traffic with an attempt to harm himself. 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 Patient is admitted suicidal intent and talk to EMS. Patient is alert and oriented. Did not admit to any suicidal thoughts to me. Patient has psychiatric history. Has history of bipolar disorder and schizophrenia. Patient had unknown overdose attempt about 2 years ago In the ED course--patient had extremely elevated blood pressure levels of 249/149 and could not be brought down-hence admission Hospital course to date 04/19: Awaiting formal pysch evaluation for 1013. BP improved to 172/117, all home medications have now been resumed. Will add prn IV antihypertensives. Will continue to trend BP. Blood sugars well controlled thus far. Will continue currently insulin regimen. Assessment and Plan: (1) Hypertensive emergency Current Visit: Yes Status: Acute Plan to address problem: Patient is noncompliant Losartan increased to 100 mg Continue hydralazine and clonidine Clonidine may be the cause of his rebound hypertension because of noncompliance (2) IDDM (insulin dependent diabetes mellitus) Current Visit: Yes Status: Chronic Plan to address problem: Continue insulin and coverage (3) Suicidal ideations Current Visit: Yes Status: Acute Plan to address problem: Psych and mental health consult requested patient is on 1013 (4) Morbid obesity Current Visit: Yes Status: Chronic Plan to address problem: Needs bariatric surgery consult as outpatient Follow-up with Dr. Jimenez as outpatient (5) Chronic kidney disease Current Visit: Yes Status: Chronic Qualifiers: Chronic kidney disease stage: stage 3 (moderate) Plan to address problem: Nephrology consult (6) DVT prophylaxis Current Visit: Yes Status: Acute Plan to address problem: On heparin and GI prophylaxis History Interval history: Resting comfortably on encounter. No acute complaints. Patient has had long history of hypertension on multiple anti-HTN meds. He states he inconsistently checks his BP and really only takes them when he has symptoms (eg. headache). He states that he is generally complaint with his meds unless they run out. He recently ran out of his diabetic medication. Hospitalist Physical - Physical exam Narrative exam: Physical Exam: VITAL SIGNS: Reviewed. GENERAL: The patient appears normally developed, Vital signs as documented. Elevated BMI. HEAD: No signs of head trauma. EYES: Pupils are equal. Extraocular motions intact. EARS: Hearing grossly intact. MOUTH: Oropharynx is normal. NECK: No adenopathy, no JVD. CHEST: Chest with clear breath sounds bilaterally. No wheezes, rales, or rhonchi. CARDIAC: Regular rate and rhythm. S1 and S2, without murmurs, gallops, or rubs. VASCULAR: No Edema. Peripheral pulses normal and equal in all extremities. ABDOMEN: Soft, non tender and non distended. No rebound or guarding, and no masses palpated. Bowel Sounds normal. MUSCULOSKELETAL: Good range of motion of all major joints. Extremities without clubbing, cyanosis or edema. NEUROLOGIC EXAM: Alert and oriented x 4. no focal sensory or strength deficits. PSYCHIATRIC: Mood normal. SKIN: detail exam as documented in skin assessment - Constitutional Vitals: Temp Pulse Resp BP Pulse Ox 98.7 F 110 H 20 195/121 99 04/19/21 06:48 04/19/21 07:31 04/19/21 07:31 04/19/21 07:31 04/19/21 07:31 General appearance: Present: no acute distress, well-nourished HEART Score - HEART Score Age: < 45 Risk factors: 1-2 risk factors Troponin: < normal limit - Critical Actions Critical Actions: 0-3 pts:0.9-1.7%risk of adverse cardiac event.Candidate for discharge Results - Labs CBC & Chem 7: 04/19/21 04:12 04/19/21 04:12 Labs: Laboratory Last Values WBC 17.8 K/mm3 (4.5-11.0) H 04/19/21 04:12 RBC 5.95 M/mm3 (3.65-5.03) H 04/19/21 04:12 Hgb 14.8 gm/dl (11.8-15.2) 04/19/21 04:12 Hct 46.7 % (35.5-45.6) H 04/19/21 04:12 MCV 79 fl (84-94) L 04/19/21 04:12 MCH 25 pg (28-32) L 04/19/21 04:12 MCHC 32 % (32-34) 04/19/21 04:12 RDW 19.0 % (13.2-15.2) H 04/19/21 04:12 Plt Count 317 K/mm3 (140-440) 04/19/21 04:12 Lymph % (Auto) 15.1 % (13.4-35.0) 04/19/21 04:12 [place] % (Auto) 7.3 % (0.0-7.3) 04/19/21 04:12 Eos % (Auto) 0.1 % (0.0-4.3) 04/19/21 04:12 Baso % (Auto) 0.5 % (0.0-1.8) 04/19/21 04:12 Lymph # (Auto) 2.7 K/mm3 (1.2-5.4) 04/19/21 04:12 [place] # (Auto) 1.3 K/mm3 (0.0-0.8) H 04/19/21 04:12 Eos # (Auto) 0.0 K/mm3 (0.0-0.4) 04/19/21 04:12 Baso # (Auto) 0.1 K/mm3 (0.0-0.1) 04/19/21 04:12 Seg Neutrophils % 77.0 % (40.0-70.0) H 04/19/21 04:12 Seg Neutrophils # 13.7 K/mm3 (1.8-7.7) H 04/19/21 04:12 Sodium 136 mmol/L (137-145) L 04/19/21 04:12 Potassium 3.2 mmol/L (3.6-5.0) L 04/19/21 04:12 Chloride 99.9 mmol/L (98-107) 04/19/21 04:12 Carbon Dioxide 22 mmol/L (22-30) 04/19/21 04:12 Anion Gap 17 mmol/L 04/19/21 04:12 BUN 33 mg/dL (9-20) H 04/19/21 04:12 Creatinine 2.5 mg/dL (0.8-1.3) H 04/19/21 04:12 Estimated GFR 36 ml/min 04/19/21 04:12 BUN/Creatinine Ratio 13 % 04/19/21 04:12 Glucose 120 mg/dL (75-100) H 04/19/21 04:12 POC Glucose 124 mg/dL (70-105) H 04/19/21 07:39 Hemoglobin A1c 6.1 % (4-6) H 04/19/21 04:12 Calcium 8.1 mg/dL (8.4-10.2) L 04/19/21 04:12 Total Bilirubin 0.40 mg/dL (0.1-1.2) 04/19/21 04:12 AST 15 units/L (5-40) 04/19/21 04:12 ALT 18 units/L (7-56) 04/19/21 04:12 Alkaline Phosphatase 49 units/L (35-129) 04/19/21 04:12 Total Protein 6.7 g/dL (6.3-8.2) 04/19/21 04:12 Albumin 3.7 g/dL (3.9-5) L 04/19/21 04:12 Albumin/Globulin Ratio 1.2 % 04/19/21 04:12 Urine Color Straw (Yellow) 04/18/21 Unknown Urine Turbidity Clear (Clear) 04/18/21 Unknown Urine pH 7.0 (5.0-7.0) 04/18/21 Unknown Ur Specific [place] 1.008 (1.003-1.030) 04/18/21 Unknown Urine Protein 100 mg/dl mg/dL (Negative) 04/18/21 Unknown Urine Glucose (UA) Neg mg/dL (Negative) 04/18/21 Unknown Urine Ketones Neg mg/dL (Negative) 04/18/21 Unknown Urine Blood Sm (Negative) 04/18/21 Unknown Urine Nitrite Neg (Negative) 04/18/21 Unknown Urine Bilirubin Neg (Negative) 04/18/21 Unknown Urine Urobilinogen < 2.0 mg/dL (<2.0) 04/18/21 Unknown Ur Leukocyte Esterase Neg (Negative) 04/18/21 Unknown Urine WBC (Auto) < 1.0 /HPF (0.0-6.0) 04/18/21 Unknown Urine RBC (Auto) 2.0 /HPF (0.0-6.0) 04/18/21 Unknown U Epithel Cells (Auto) 2.0 /HPF (0-13.0) 04/18/21 Unknown Urine Bacteria (Auto) 1+ /HPF (Negative) 04/18/21 Unknown Urine Opiates Screen Negative 04/18/21 Unknown Urine Methadone Screen Negative 04/18/21 Unknown Ur Barbiturates Screen Negative 04/18/21 Unknown Ur Phencyclidine Scrn Negative 04/18/21 Unknown Ur Amphetamines Screen Negative 04/18/21 Unknown U Benzodiazepines Scrn Negative 04/18/21 Unknown Urine Cocaine Screen Negative 04/18/21 Unknown U Marijuana (THC) Screen Negative 04/18/21 Unknown Drugs of Abuse Note Disclamer 04/18/21 Unknown Plasma/Serum Alcohol < 0.01 % (0-0.07) 04/18/21 12:12 Active Medications - Current Medications Current Medications: Generic Name Dose Route Start Last Admin Trade Name Freq PRN Reason Stop Dose Admin Acetaminophen 650 mg 04/18/21 19:22 Acetaminophen 325 Mg Tab PO Q4H PRN Pain MILD(1-3)/Fever >100.5/DOWNS Amlodipine Besylate 10 mg 04/18/21 20:00 04/19/21 02:11 Amlodipine 10 Mg Tab PO 10 mg QDAY EFRAIN Administration Atorvastatin Calcium 40 mg 04/18/21 22:00 04/19/21 02:12 Atorvastatin 40 Mg Tab PO 40 mg QHS EFRAIN Administration Clonidine HCl 0.3 mg 04/18/21 20:00 04/19/21 02:10 Clonidine 0.1 Mg Tab PO 0.3 mg TID EFRAIN Administration Famotidine 20 mg 04/18/21 20:00 04/19/21 02:12 Famotidine 20 Mg Tab PO 20 mg DAILY EFRAIN Administration Heparin Sodium (Porcine) 5,000 unit 04/18/21 22:00 04/19/21 02:13 Heparin 5,000 Unit/1 Ml Vial SUB-Q 5,000 unit Q12HR EFRAIN Administration Hydralazine HCl 100 mg 04/18/21 22:00 04/19/21 02:07 Hydralazine 25 Mg Tab PO 100 mg Q8HR EFRAIN Administration Hydralazine HCl 10 mg 04/18/21 19:26 04/18/21 20:33 Hydralazine 20 Mg/1 Ml Inj IV 10 mg Q3H PRN Administration Blood Pressure Insulin Glargine 25 units 04/18/21 22:00 Insulin Glargine 100 Units/Ml SUB-Q QHS EFRAIN Insulin Human Lispro 0 unit 04/18/21 22:00 04/19/21 07:40 Insulin Lispro 100 Unit/Ml SUB-Q Not Given ACHS EFRAIN Protocol Isosorbide Mononitrate 30 mg 04/18/21 20:00 04/19/21 02:38 Isosorbide Mononitrate Er 30 Mg Tab PO Not Given QDAY EFRAIN Losartan Potassium 100 mg 04/18/21 20:00 04/19/21 02:09 Losartan 50 Mg Tab PO 100 mg QDAY EFRAIN Administration Metoclopramide HCl 10 mg 04/18/21 19:22 Metoclopramide 10 Mg/2 Ml Inj IV Q6H PRN Nausea And Vomiting Metoprolol Tartrate 100 mg 04/18/21 22:00 04/19/21 02:42 Metoprolol Tartrate 100 Mg Tab PO Not Given BID EFRAIN Ondansetron HCl 4 mg 04/18/21 19:22 Ondansetron 4 Mg/2 Ml Inj IV Q8H PRN Nausea And Vomiting Oxycodone/Acetaminophen 1 tab 04/18/21 19:22 04/19/21 07:26 Oxycodone /Acetaminophen 5-325mg Tab PO 1 tab Q6H PRN Administration Pain, Moderate (4-6) Promethazine HCl 25 mg 04/18/21 19:22 Promethazine 25 Mg Rect Supp ME Q6H PRN N/V IF NPO AND NO IV ACCESS Sodium Chloride 10 ml 04/18/21 22:00 Sodium Chloride 0.9% 10 Ml Flush Syringe IV BID EFRAIN Sodium Chloride 10 ml 04/18/21 19:22 Sodium Chloride 0.9% 10 Ml Flush Syringe IV PRN PRN LINE FLUSH Spironolactone 50 mg 04/18/21 20:00 04/19/21 02:39 Spironolactone 50 Mg Tab PO Not Given QDAY [facility]
--- NOTE | 2021-04-19 11:38 | Consultation ---
History of Present Illness - Reason for Consult Consult date: 04/19/21 Reason for consult: SI - History of Present Psychiatric Illness The patient was seen today. He was brought in after appearing to be walking in traffic. During my interview with the patient he is calm, cooperative and polite. He is a/o x 3. He is lucid. The patient he doesn't remember a lot about what happened, but states "I do remember feeling stressed, and I remember walking. He says I guess I passed out when I woke up there were people around me." He says "I think it was cause my blood pressure was so high. I feel fine now." The patient denies feeling suicidal or ever feeling suicidal. He says "no, no, I wasn't trying to do nothing like that." He says "I did have an attempt last year. But I was never sent inpatient or started on any meds." He denies being on any psych meds at all. He also denies any illicit drug use, alcohol or nicotine. The patient says he lives with his mom and his brother. He says he's recently applied for disability and has a hearing coming up soon. He also denies hallucinations of any kind. PAST PSYCHIATRIC HISTORY Diagnoses: Depression Suicide attempts or Self-harm behavior: Once Prior psychiatric hospitalizations: Denies Substance Abuse history: Denies Previous psychiatric medications tried: Denies Outpatient treatment: Denies PAST MEDICAL HISTORY: Family Psychiatric History: Not available SOCIAL HISTORY Marital status: Single Living Arrangements: with mom and brother Employment Status: Unemployed Access to guns/weapons: Denies Education: History of Abuse: None reported Legal History: None reported REVIEW OF SYSTEMS Constitutional: Negative for weight loss ENT: Negative for stridor Respiratory: Negative for cough or hemoptysis All other systems reviewed and are negative MENTAL STATUS EXAMINATION General Appearance and Behavior: Age appropriate, good hygiene, wearing appropriate clothes, good eye contact, calm and cooperative. Pleasant Cooperation: Participating/engaged Psychomotor Behavior: unremarkable and within normal limits Mood: better Affect and affective range: congruent with mood Thought Process: Goal directed Thought Content: None Speech: Normal volume, Regular rate and rhythm Suicidal Ideation: Denies Homicidal Ideation: Denies Hallucinations: Denies Impulse Control: Unimpaired Insight and Judgment: Normal insight and judgment Memory: Normal Attention: Attentive Orientation: Alert, oriented Assessment and Plan Encounter for Mental Health Eval RECOMMENDATIONS D/c 1013 No meds prescribed at this time Risks, benefits and alternatives of medications discussed with the patient, questions answered and consent obtained from patient. PSYCHOTHERAPY: Supportive psychotherapy provided MEDICAL: Per primary team DELIRIUM PRECAUTIONS: Please re-orient patient frequently, keep lights on during the day, and minimize benzodiazepines and opiates as these medications could worsen patient's confusion. MANAGEMENT LIAISON: Per medical team DISPOSITION: Do not Recommend acute inpatient psychiatric hospitalization at this time. The patient understands that if SI/HI or any fear of endangerment arise he is to seek immediate assistance. Will sign off. Thanks The shop superintendent is to provide the patient with all necessary outpatient resources The patient to follow up with outpatient if needed Case staffed with Dr. Garcia Medications and Allergies Allergies Allergy/AdvReac Type Severity Reaction Status Date / Time ants Allergy Swelling Uncoded 04/19/21 10:20 Home Medications Medication Instructions Recorded Confirmed Last Taken Type AtorvaSTATin [Lipitor] 40 mg PO QHS #30 tablet 03/06/19 05/11/19 Unknown Rx Famotidine [Pepcid] 20 mg PO DAILY #60 tablet 03/06/19 05/11/19 Unknown Rx ISOSORBIDE MONOnitrate [Imdur ER] 30 mg PO QDAY #30 tablet 03/06/19 05/11/19 Unknown Rx Insulin Regular, Human [HumuLIN R] 0 units SUB-Q ACHS units 03/06/19 05/11/19 Unknown Rx Losartan [Cozaar] 50 mg PO QDAY #30 tablet 03/06/19 05/11/19 Unknown Rx Spironolactone [Aldactone] 50 mg PO QDAY #30 tablet 03/06/19 05/11/19 Unknown Rx cloNIDine [Catapres] 0.3 mg PO TID #90 tablet 03/06/19 05/11/19 Unknown Rx hydrALAZINE [Apresoline TAB] 50 mg PO Q8HR #90 tablet 03/06/19 05/11/19 Unknown Rx Metoprolol [Lopressor TAB] 100 mg PO BID #60 tablet 03/08/19 05/11/19 Unknown Rx amLODIPine 10 mg PO QDAY #30 tablet 03/08/19 05/11/19 Unknown Rx Active Meds: Active Medications Acetaminophen (Acetaminophen 325 Mg Tab) 650 mg PO Q4H PRN PRN Reason: Pain MILD(1-3)/Fever >100.5/DOWNS Amlodipine Besylate (Amlodipine 10 Mg Tab) 10 mg PO QDAY [facility] Last Admin: 04/19/21 10:36 Dose: 10 mg Documented by: Atorvastatin Calcium (Atorvastatin 40 Mg Tab) 40 mg PO QHS [facility] Last Admin: 04/19/21 02:12 Dose: 40 mg Documented by: Clonidine HCl (Clonidine 0.1 Mg Tab) 0.3 mg PO TID [facility] Last Admin: 04/19/21 09:37 Dose: 0.3 mg Documented by: Famotidine (Famotidine 20 Mg Tab) 20 mg PO DAILY [facility] Last Admin: 04/19/21 10:37 Dose: 20 mg Documented by: Heparin Sodium (Porcine) (Heparin 5,000 Unit/1 Ml Vial) 5,000 unit SUB-Q Q12HR [facility] Last Admin: 04/19/21 10:36 Dose: 5,000 unit Documented by: Hydralazine HCl (Hydralazine 25 Mg Tab) 100 mg PO Q8HR [facility] Last Admin: 04/19/21 02:07 Dose: 100 mg Documented by: Hydralazine HCl (Hydralazine 20 Mg/1 Ml Inj) 10 mg IV Q3H PRN PRN Reason: Blood Pressure Last Admin: 04/18/21 20:33 Dose: 10 mg Documented by: Insulin Glargine (Insulin Glargine 100 Units/Ml) 25 units SUB-Q QHS [facility] Insulin Human Lispro (Insulin Lispro 100 Unit/Ml) 0 unit SUB-Q [facility]; Protocol Last Admin: 04/19/21 07:40 Dose: Not Given Documented by: Isosorbide Mononitrate (Isosorbide Mononitrate Er 30 Mg Tab) 30 mg PO QDAY [facility] Last Admin: 04/19/21 10:36 Dose: 30 mg Documented by: Losartan Potassium (Losartan 50 Mg Tab) 100 mg PO QDAY [facility] Last Admin: 04/19/21 10:36 Dose: 100 mg Documented by: Metoclopramide HCl (Metoclopramide 10 Mg/2 Ml Inj) 10 mg IV Q6H PRN PRN Reason: Nausea And Vomiting Metoprolol Tartrate (Metoprolol Tartrate 100 Mg Tab) 100 mg PO BID [facility] Last Admin: 04/19/21 10:36 Dose: 100 mg Documented by: Ondansetron HCl (Ondansetron 4 Mg/2 Ml Inj) 4 mg IV Q8H PRN PRN Reason: Nausea And Vomiting Oxycodone/Acetaminophen (Oxycodone /Acetaminophen 5-325mg Tab) 1 tab PO Q6H PRN PRN Reason: Pain, Moderate (4-6) Last Admin: 04/19/21 07:26 Dose: 1 tab Documented by: Promethazine HCl (Promethazine 25 Mg Rect Supp) 25 mg IA Q6H PRN PRN Reason: N/V IF NPO AND NO IV ACCESS Sodium Chloride (Sodium Chloride 0.9% 10 Ml Flush Syringe) 10 ml IV BID [facility] Last Admin: 04/19/21 10:36 Dose: 10 ml Documented by: Sodium Chloride (Sodium Chloride 0.9% 10 Ml Flush Syringe) 10 ml IV PRN PRN PRN Reason: LINE FLUSH Spironolactone (Spironolactone 50 Mg Tab) 50 mg PO QDAY [facility] Last Admin: 04/19/21 10:36 Dose: 50 mg Documented by: Mental Status Exam - Vital signs Last Vital Signs Temp 98.7 F 04/19/21 06:48 Pulse 94 H 04/19/21 10:01 Resp 23 04/19/21 10:01 BP 187/112 04/19/21 10:01 Pulse Ox 96 04/19/21 10:01 Results Result Diagrams: 04/19/21 04:12 04/19/21 04:12 Abnormal lab results 04/18/21 04/18/21 04/19/21 Range/Units 12:12 12:12 02:08 WBC 14.6 H (4.5-11.0) K/mm3 RBC 6.23 H (3.65-5.03) M/mm3 Hgb 15.4 H (11.8-15.2) gm/dl Hct 49.3 H (35.5-45.6) % MCV 79 L (84-94) fl MCH 25 L (28-32) pg MCHC 31 L (32-34) % RDW 18.8 H (13.2-15.2) % Lymph % (Auto) 9.5 L (13.4-35.0) % [facility] # (Auto) (0.0-0.8) K/mm3 Seg Neutrophils % 87.2 H (40.0-70.0) % Seg Neutrophils # 12.7 H (1.8-7.7) K/mm3 Sodium (137-145) mmol/L Potassium (3.6-5.0) mmol/L Carbon Dioxide 21 L (22-30) mmol/L BUN 37 H (9-20) mg/dL Creatinine 3.0 H (0.8-1.3) mg/dL Glucose 143 H (75-100) mg/dL POC Glucose 124 H (70-105) mg/dL Hemoglobin A1c (4-6) % Calcium 8.2 L (8.4-10.2) mg/dL Albumin (3.9-5) g/dL 04/19/21 04/19/21 04/19/21 Range/Units 04:12 04:12 04:12 WBC 17.8 H (4.5-11.0) K/mm3 RBC 5.95 H (3.65-5.03) M/mm3 Hgb (11.8-15.2) gm/dl Hct 46.7 H (35.5-45.6) % MCV 79 L (84-94) fl MCH 25 L (28-32) pg MCHC (32-34) % RDW 19.0 H (13.2-15.2) % Lymph % (Auto) (13.4-35.0) % [facility] # (Auto) 1.3 H (0.0-0.8) K/mm3 Seg Neutrophils % 77.0 H (40.0-70.0) % Seg Neutrophils # 13.7 H (1.8-7.7) K/mm3 Sodium 136 L (137-145) mmol/L Potassium 3.2 L (3.6-5.0) mmol/L Carbon Dioxide (22-30) mmol/L BUN 33 H (9-20) mg/dL Creatinine 2.5 H (0.8-1.3) mg/dL Glucose 120 H (75-100) mg/dL POC Glucose (70-105) mg/dL Hemoglobin A1c 6.1 H (4-6) % Calcium 8.1 L (8.4-10.2) mg/dL Albumin 3.7 L (3.9-5) g/dL 04/19/21 Range/Units 07:39 WBC (4.5-11.0) K/mm3 RBC (3.65-5.03) M/mm3 Hgb (11.8-15.2) gm/dl Hct (35.5-45.6) % MCV (84-94) fl MCH (28-32) pg MCHC (32-34) % RDW (13.2-15.2) % Lymph % (Auto) (13.4-35.0) % [facility] # (Auto) (0.0-0.8) K/mm3 Seg Neutrophils % (40.0-70.0) % Seg Neutrophils # (1.8-7.7) K/mm3 Sodium (137-145) mmol/L Potassium (3.6-5.0) mmol/L Carbon Dioxide (22-30) mmol/L BUN (9-20) mg/dL Creatinine (0.8-1.3) mg/dL Glucose (75-100) mg/dL POC Glucose 124 H (70-105) mg/dL Hemoglobin A1c (4-6) % Calcium (8.4-10.2) mg/dL Albumin (3.9-5) g/dL All other labs normal.
--- NOTE | 2021-04-19 12:32 | Consultation ---
History of Present Illness - Reason for Consult Consult date: 04/19/21 acute renal failure, chronic renal failure - History of Present Illness The patient is a 35 YO AAM with history significant for Morbid obesity, Uncontrolled Hypertension, DM-2, CAD, Depression, prior suicidal attempt, CKD 3- 4 and Medical non-compliance who presented to [facility] ED 04/18 via EMS after he tried to harm himself. Patient tried to walk into traffic with an attempt to harm himself. 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 The patient he doesn't remember a lot about what happened, but states that he remember walking, thought he passed out and when he woke up there were people around him. He denies any N, V, D, abd pain, dysuria, hematuria, cp, sob, cough, palpitation, dizziness, leg swelling, fever or chills. In the ED, initial BP was around 249/149. Patient was admitted for treatment of further evaluation and treatment. Labs notable for Creat 2.5, K 3.2 and BUN 33. Nephrology was consulted for further e valuation and treatment. Past History Past Medical History: other (See HPI.) Medications and Allergies Allergies Allergy/AdvReac Type Severity Reaction Status Date / Time ants Allergy Swelling Uncoded 04/19/21 10:20 Home Medications Medication Instructions Recorded Confirmed Last Taken Type AtorvaSTATin [Lipitor] 40 mg PO QHS #30 tablet 03/06/19 04/19/21 Unknown Rx Famotidine [Pepcid] 20 mg PO DAILY #60 tablet 03/06/19 04/19/21 Unknown Rx ISOSORBIDE MONOnitrate [Imdur ER] 30 mg PO QDAY #30 tablet 03/06/19 04/19/21 Unknown Rx Losartan [Cozaar] 50 mg PO QDAY #30 tablet 03/06/19 04/19/21 Unknown Rx cloNIDine [Catapres] 0.3 mg PO TID #90 tablet 03/06/19 04/19/21 Unknown Rx hydrALAZINE [Apresoline TAB] 50 mg PO Q8HR #90 tablet 03/06/19 04/19/21 Unknown Rx Metoprolol [Lopressor TAB] 100 mg PO BID #60 tablet 03/08/19 04/19/21 Unknown Rx Active Meds: Active Medications Acetaminophen (Acetaminophen 325 Mg Tab) 650 mg PO Q4H PRN PRN Reason: Pain MILD(1-3)/Fever >100.5/DOWNS Amlodipine Besylate (Amlodipine 10 Mg Tab) 10 mg PO QDAY [facility] Last Admin: 04/19/21 10:36 Dose: 10 mg Documented by: Atorvastatin Calcium (Atorvastatin 40 Mg Tab) 40 mg PO QHS [facility] Last Admin: 04/19/21 02:12 Dose: 40 mg Documented by: Clonidine HCl (Clonidine 0.1 Mg Tab) 0.3 mg PO TID [facility] Last Admin: 04/19/21 09:37 Dose: 0.3 mg Documented by: Famotidine (Famotidine 20 Mg Tab) 20 mg PO DAILY [facility] Last Admin: 04/19/21 10:37 Dose: 20 mg Documented by: Heparin Sodium (Porcine) (Heparin 5,000 Unit/1 Ml Vial) 5,000 unit SUB-Q Q12HR [facility] Last Admin: 04/19/21 10:36 Dose: 5,000 unit Documented by: Hydralazine HCl (Hydralazine 25 Mg Tab) 100 mg PO Q8HR [facility] Last Admin: 04/19/21 02:07 Dose: 100 mg Documented by: Hydralazine HCl (Hydralazine 20 Mg/1 Ml Inj) 10 mg IV Q3H PRN PRN Reason: Blood Pressure Last Admin: 04/18/21 20:33 Dose: 10 mg Documented by: Insulin Glargine (Insulin Glargine 100 Units/Ml) 25 units SUB-Q QHS [facility] Insulin Human Lispro (Insulin Lispro 100 Unit/Ml) 0 unit SUB-Q [facility]; Protocol Last Admin: 04/19/21 11:20 Dose: Not Given Documented by: Isosorbide Mononitrate (Isosorbide Mononitrate Er 30 Mg Tab) 30 mg PO QDAY [facility] Last Admin: 04/19/21 10:36 Dose: 30 mg Documented by: Losartan Potassium (Losartan 50 Mg Tab) 100 mg PO QDAY [facility] Last Admin: 04/19/21 10:36 Dose: 100 mg Documented by: Metoclopramide HCl (Metoclopramide 10 Mg/2 Ml Inj) 10 mg IV Q6H PRN PRN Reason: Nausea And Vomiting Metoprolol Tartrate (Metoprolol Tartrate 100 Mg Tab) 100 mg PO BID [facility] Last Admin: 04/19/21 10:36 Dose: 100 mg Documented by: Ondansetron HCl (Ondansetron 4 Mg/2 Ml Inj) 4 mg IV Q8H PRN PRN Reason: Nausea And Vomiting Oxycodone/Acetaminophen (Oxycodone /Acetaminophen 5-325mg Tab) 1 tab PO Q6H PRN PRN Reason: Pain, Moderate (4-6) Last Admin: 04/19/21 07:26 Dose: 1 tab Documented by: Promethazine HCl (Promethazine 25 Mg Rect Supp) 25 mg MT Q6H PRN PRN Reason: N/V IF NPO AND NO IV ACCESS Sodium Chloride (Sodium Chloride 0.9% 10 Ml Flush Syringe) 10 ml IV BID [facility] Last Admin: 04/19/21 10:36 Dose: 10 ml Documented by: Sodium Chloride (Sodium Chloride 0.9% 10 Ml Flush Syringe) 10 ml IV PRN PRN PRN Reason: LINE FLUSH Spironolactone (Spironolactone 50 Mg Tab) 50 mg PO QDAY [facility] Last Admin: 04/19/21 10:36 Dose: 50 mg Documented by: Review of Systems All systems: negative Exam - Vital Signs Vital signs: Vital Signs Temp Pulse Resp BP Pulse Ox 99.4 F 110 H 16 230/168 96 04/18/21 10:57 04/18/21 10:57 04/18/21 10:57 04/18/21 10:57 04/18/21 10:57 Results - Lab Results 04/20/21 06:03 04/20/21 06:03 Most recent lab results Calcium 8.1 mg/dL (8.4-10.2) L 04/19/21 04:12 Assessment and Plan 1. Acute kidney injury vs progression of CKD: Creatinine level was around 2.5 in 2019. Current creatinine: 2.5mg/dl. UA with mild proteinuria. Monitor renal function. Creatinine level same as in 2019. Avoid nephrotoxic agents. Meds dosage based on GFR. 2. FEN: Hypokalemia, replete K, monitor. Monitor lytes and volume status. 3. Hypertensive emergency: Likely 2/2 noncompliance. Adjust meds as needed. Monitor BP. Counseled. 4. Suicidal ideations: Seen by Psych. 5. DM type 2: A1C 6.1. Monitor. 6. Leukocytosis, POA: Trend. Subjective: Patient was seen and examined at the bedside. Examination: General appearance: well-developed, appears stated age, obese, no distress HEENT: atraumatic Neck: trachea midline Respiratory: ctab Heart: S1S2, no murmur Abdomen: soft, bowel sounds heard, NT Integumentary: no obvious rash Neurologic: AO, able to move extremities Ext: no edema noted
[2021-04-19] MEDS: INSULIN GLARGINE 100 UNITS/ML SUB-Q SCH ×2 (22:17→23:21)
[2021-04-20] MEDS: hydrALAZINE 25 MG TAB PO SCH ×2 (05:14→15:56)
[2021-04-20 07:16] LABS: Basophils # (Auto) 0.1 K/mm3 (0.0-0.1); Basophils % (Auto) 0.3 % (0.0-1.8); Eosinophils # (Auto) 0.1 K/mm3 (0.0-0.4); Eosinophils % (Auto) 0.7 % (0.0-4.3); Hematocrit 45.3 % (35.5-45.6); Hemoglobin 14.2 gm/dl (11.8-15.2); Lymphocytes % (Auto) 18.6 % (13.4-35.0); Mean Corpuscular HGB Conc 31 % (32-34); Mean Corpuscular Volume 79 fl (84-94); Monocytes # (Auto) 1.3 K/mm3 (0.0-0.8); Monocytes % (Auto) 7.9 % (0.0-7.3); Platelet Count 329 K/mm3 (140-440); Red Blood Count 5.74 M/mm3 (3.65-5.03); Red Cell Distribution Width 19.4 % (13.2-15.2)
[2021-04-20 07:39] LABS: Calcium 8.5 mg/dL (8.4-10.2)
--- NOTE | 2021-04-20 07:51 | Discharge Summary ---
Providers - Providers Date of Admission: 04/18/21 17:18 Date of discharge: 04/20/21 Attending physician: SHANNAN MORROW MD 04/18/21 19:22 Consult to Physician [CONS] Routine Comment: Consulting Provider: ROCIO CUELLO Physician Instructions: Reason For Exam: Suicidal ideation 04/18/21 19:34 Consult to Mental Health [CONS] Routine Reason For Exam: Suicidal ideation 04/19/21 07:20 Consult to Physician [CONS] Routine Comment: Consulting Provider: SHELBI WASSERMAN Physician Instructions: Reason For Exam: ckd Primary care physician: TAX ANALYST Hospitalization Reason for admission: Suicidal ideation, hypertensive emergency Condition: Serious Disposition: 01 HOME / SELF CARE / HOMELESS Final Discharge Diagnosis (Prints w/discharge instructions): Hypertensive Emergency Time spent for discharge: 35 Core Measure Documentation - Palliative Care Palliative Care/ Comfort Measures: Not Applicable - Core Measures Any of the following diagnoses?: none Exam - Physical Exam Narrative exam: Physical Exam: VITAL SIGNS: Reviewed. GENERAL: The patient appears normally developed, Vital signs as documented. Elevated BMI. HEAD: No signs of head trauma. EYES: Pupils are equal. Extraocular motions intact. EARS: Hearing grossly intact. MOUTH: Oropharynx is normal. NECK: No adenopathy, no JVD. CHEST: Chest with clear breath sounds bilaterally. No wheezes, rales, or rhonchi. CARDIAC: Regular rate and rhythm. S1 and S2, without murmurs, gallops, or rubs. VASCULAR: No Edema. Peripheral pulses normal and equal in all extremities. ABDOMEN: Soft, non tender and non distended. No rebound or guarding, and no masses palpated. Bowel Sounds normal. MUSCULOSKELETAL: Good range of motion of all major joints. Extremities without clubbing, cyanosis or edema. NEUROLOGIC EXAM: Alert and oriented x 4. no focal sensory or strength deficits. PSYCHIATRIC: Mood normal. SKIN: detail exam as documented in skin assessment - Constitutional Vitals: Temp Pulse Resp BP Pulse Ox 98.0 F 76 20 123/78 96 04/20/21 05:08 04/20/21 05:14 04/20/21 05:08 04/20/21 05:14 04/20/21 05:08 Plan Follow up with: TREV VARGAS MD [Primary Care Provider] - 7 Days
[2021-04-20] MEDS: INSULIN LISPRO 100 UNIT/ML SUB-Q SCH ×2 (08:12→12:24)
[2021-04-20] MEDS: cloNIDine 0.1 MG TAB PO SCH ×2 (08:41→15:56)
--- NOTE | 2021-04-20 09:39 | Electrocardiograph Report ---
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
[2021-04-20] MEDS ORDERED: SODIUM CHLORIDE 0.9% 500 ML 500 ML IV ONE (10:03)
--- NOTE | 2021-04-20 10:08 | Progress Note ---
Assessment and Plan Assessment and plan: History of present illness: 35-year-old -[place] male presents to the emergency department via EMS when he was trying to walk into traffic with an attempt to harm himself. 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 Patient is admitted suicidal intent and talk to EMS. Patient is alert and oriented. Did not admit to any suicidal thoughts to me. Patient has psychiatric history. Has history of bipolar disorder and schizophrenia. Patient had unknown overdose attempt about 2 years ago In the ED course--patient had extremely elevated blood pressure levels of 249/149 and could not be brought down-hence admission Hospital course to date 04/19: Awaiting formal pysch evaluation for 1013. BP improved to 172/117, all home medications have now been resumed. Will add prn IV antihypertensives. Will continue to trend BP. Blood sugars well controlled thus far. Will continue currently insulin regimen. 04/20: BP under better control today. However, Cr worsened today. Suspect med induced, losartan and spironalactone dc. follow up repeat BMP in afternoon. follow up nephro recs. Assessment and Plan: (1) Hypertensive emergency Current Visit: Yes Status: Acute Plan to address problem: Patient is noncompliant Losartan increased to 100 mg Continue hydralazine and clonidine Clonidine may be the cause of his rebound hypertension because of noncompliance (2) IDDM (insulin dependent diabetes mellitus) Current Visit: Yes Status: Chronic Plan to address problem: Continue insulin and coverage (3) Suicidal ideations Current Visit: Yes Status: Acute Plan to address problem: Psych and mental health consult requested patient is on 1013 (4) Morbid obesity Current Visit: Yes Status: Chronic Plan to address problem: Needs bariatric surgery consult as outpatient Follow-up with Dr. Jimenez as outpatient (5) ALEX on CKD, llikely medication induced Plan to address problem: d/c losartan and spironalactone Cr: 2.5--> 3.5 IV NS bolus ordered repeat Cr in afternoon. Nephrology consult (5) COVID PUI Plan to address problem: elevated wbc on admission (downtrending), doubt infection, patient denies any symptomology suggestive of covid 19 infection. COVID 19 PCR ordered in ED, will follow (6) DVT prophylaxis Current Visit: Yes Status: Acute Plan to address problem: On heparin and GI prophylaxis History Interval history: no acute complaints on encounter. He denies fevers chills nausea vomiting diarrhea ,myalgias. Hospitalist Physical - Physical exam Narrative exam: Physical Exam: VITAL SIGNS: Reviewed. GENERAL: The patient appears normally developed, Vital signs as documented. Elevated BMI. HEAD: No signs of head trauma. EYES: Pupils are equal. Extraocular motions intact. EARS: Hearing grossly intact. MOUTH: Oropharynx is normal. NECK: No adenopathy, no JVD. CHEST: Chest with clear breath sounds bilaterally. No wheezes, rales, or rhonchi. CARDIAC: Regular rate and rhythm. S1 and S2, without murmurs, gallops, or rubs. VASCULAR: No Edema. Peripheral pulses normal and equal in all extremities. ABDOMEN: Soft, non tender and non distended. No rebound or guarding, and no masses palpated. Bowel Sounds normal. MUSCULOSKELETAL: Good range of motion of all major joints. Extremities without clubbing, cyanosis or edema. NEUROLOGIC EXAM: Alert and oriented x 4. no focal sensory or strength deficits. PSYCHIATRIC: Mood normal. SKIN: detail exam as documented in skin assessment - Constitutional Vitals: Temp Pulse Resp BP Pulse Ox 98.0 F 76 20 128/79 96 04/20/21 05:08 04/20/21 08:41 04/20/21 05:08 04/20/21 08:41 04/20/21 05:08 General appearance: Present: no acute distress, well-nourished HEART Score - HEART Score Age: < 45 Risk factors: 1-2 risk factors Troponin: < normal limit - Critical Actions Critical Actions: 0-3 pts:0.9-1.7%risk of adverse cardiac event.Candidate for discharge Results - Labs CBC & Chem 7: 04/20/21 06:03 04/20/21 06:03 Labs: Laboratory Last Values WBC 16.2 K/mm3 (4.5-11.0) H 04/20/21 06:03 RBC 5.74 M/mm3 (3.65-5.03) H 04/20/21 06:03 Hgb 14.2 gm/dl (11.8-15.2) 04/20/21 06:03 Hct 45.3 % (35.5-45.6) 04/20/21 06:03 MCV 79 fl (84-94) L 04/20/21 06:03 MCH 25 pg (28-32) L 04/20/21 06:03 MCHC 31 % (32-34) L 04/20/21 06:03 RDW 19.4 % (13.2-15.2) H 04/20/21 06:03 Plt Count 329 K/mm3 (140-440) 04/20/21 06:03 Lymph % (Auto) 18.6 % (13.4-35.0) 04/20/21 06:03 [place] % (Auto) 7.9 % (0.0-7.3) H 04/20/21 06:03 Eos % (Auto) 0.7 % (0.0-4.3) 04/20/21 06:03 Baso % (Auto) 0.3 % (0.0-1.8) 04/20/21 06:03 Lymph # (Auto) 3.0 K/mm3 (1.2-5.4) 04/20/21 06:03 [place] # (Auto) 1.3 K/mm3 (0.0-0.8) H 04/20/21 06:03 Eos # (Auto) 0.1 K/mm3 (0.0-0.4) 04/20/21 06:03 Baso # (Auto) 0.1 K/mm3 (0.0-0.1) 04/20/21 06:03 Seg Neutrophils % 72.5 % (40.0-70.0) H 04/20/21 06:03 Seg Neutrophils # 11.7 K/mm3 (1.8-7.7) H 04/20/21 06:03 Sodium 142 mmol/L (137-145) 04/20/21 06:03 Potassium 3.6 mmol/L (3.6-5.0) 04/20/21 06:03 Chloride 104.5 mmol/L (98-107) 04/20/21 06:03 Carbon Dioxide 21 mmol/L (22-30) L 04/20/21 06:03 Anion Gap 20 mmol/L 04/20/21 06:03 BUN 40 mg/dL (9-20) H 04/20/21 06:03 Creatinine 3.6 mg/dL (0.8-1.3) H 04/20/21 06:03 Estimated GFR 24 ml/min 04/20/21 06:03 BUN/Creatinine Ratio 11 % 04/20/21 06:03 Glucose 95 mg/dL (75-100) 04/20/21 06:03 POC Glucose 101 mg/dL (70-105) 04/20/21 08:03 Hemoglobin A1c 6.1 % (4-6) H 04/19/21 04:12 Calcium 8.5 mg/dL (8.4-10.2) 04/20/21 06:03 Magnesium 2.10 mg/dL (1.7-2.3) 04/20/21 06:03 Total Bilirubin 0.40 mg/dL (0.1-1.2) 04/19/21 04:12 AST 15 units/L (5-40) 04/19/21 04:12 ALT 18 units/L (7-56) 04/19/21 04:12 Alkaline Phosphatase 49 units/L (35-129) 04/19/21 04:12 Total Protein 6.7 g/dL (6.3-8.2) 04/19/21 04:12 Albumin 3.7 g/dL (3.9-5) L 04/19/21 04:12 Albumin/Globulin Ratio 1.2 % 04/19/21 04:12 Urine Color Straw (Yellow) 04/18/21 Unknown Urine Turbidity Clear (Clear) 04/18/21 Unknown Urine pH 7.0 (5.0-7.0) 04/18/21 Unknown Ur Specific [place] 1.008 (1.003-1.030) 04/18/21 Unknown Urine Protein 100 mg/dl mg/dL (Negative) 04/18/21 Unknown Urine Glucose (UA) Neg mg/dL (Negative) 04/18/21 Unknown Urine Ketones Neg mg/dL (Negative) 04/18/21 Unknown Urine Blood Sm (Negative) 04/18/21 Unknown Urine Nitrite Neg (Negative) 04/18/21 Unknown Urine Bilirubin Neg (Negative) 04/18/21 Unknown Urine Urobilinogen < 2.0 mg/dL (<2.0) 04/18/21 Unknown Ur Leukocyte Esterase Neg (Negative) 04/18/21 Unknown Urine WBC (Auto) < 1.0 /HPF (0.0-6.0) 04/18/21 Unknown Urine RBC (Auto) 2.0 /HPF (0.0-6.0) 04/18/21 Unknown U Epithel Cells (Auto) 2.0 /HPF (0-13.0) 04/18/21 Unknown Urine Bacteria (Auto) 1+ /HPF (Negative) 04/18/21 Unknown Urine Opiates Screen Negative 04/18/21 Unknown Urine Methadone Screen Negative 04/18/21 Unknown Ur Barbiturates Screen Negative 04/18/21 Unknown Ur Phencyclidine Scrn Negative 04/18/21 Unknown Ur Amphetamines Screen Negative 04/18/21 Unknown U Benzodiazepines Scrn Negative 04/18/21 Unknown Urine Cocaine Screen Negative 04/18/21 Unknown U Marijuana (THC) Screen Negative 04/18/21 Unknown Drugs of Abuse Note Disclamer 04/18/21 Unknown Plasma/Serum Alcohol < 0.01 % (0-0.07) 04/18/21 12:12 Giral[place]/IV: Voiding Method Toilet Active Medications - Current Medications Current Medications: Generic Name Dose Route Start Last Admin Trade Name Freq PRN Reason Stop Dose Admin Acetaminophen 650 mg 04/18/21 19:22 Acetaminophen 325 Mg Tab PO Q4H PRN Pain MILD(1-3)/Fever >100.5/DOWNS Amlodipine Besylate 10 mg 04/18/21 20:00 04/19/21 10:36 Amlodipine 10 Mg Tab PO 10 mg QDAY EFRAIN Administration Atorvastatin Calcium 40 mg 04/18/21 22:00 04/19/21 22:19 Atorvastatin 40 Mg Tab PO 40 mg QHS EFRAIN Administration Clonidine HCl 0.3 mg 04/18/21 20:00 04/20/21 08:41 Clonidine 0.1 Mg Tab PO 0.3 mg TID EFRAIN Administration Famotidine 20 mg 04/18/21 20:00 04/19/21 10:37 Famotidine 20 Mg Tab PO 20 mg DAILY EFRAIN Administration Heparin Sodium (Porcine) 5,000 unit 04/18/21 22:00 04/19/21 22:18 Heparin 5,000 Unit/1 Ml Vial SUB-Q Not Given Q12HR EFRAIN Hydralazine HCl 100 mg 04/18/21 22:00 04/20/21 05:14 Hydralazine 25 Mg Tab PO 100 mg Q8HR EFRAIN Administration Hydralazine HCl 10 mg 04/18/21 19:26 04/18/21 20:33 Hydralazine 20 Mg/1 Ml Inj IV 10 mg Q3H PRN Administration Blood Pressure Sodium Chloride 500 mls @ 999 mls/hr 04/20/21 10:03 Nacl 0.9% 500 Ml IV 04/20/21 10:33 ONCE ONE Insulin Glargine 25 units 04/18/21 22:00 04/19/21 23:21 Insulin Glargine 100 Units/Ml SUB-Q Not Given QHS [facility] Insulin Human Lispro 0 unit 04/18/21 22:00 04/20/21 08:12 Insulin Lispro 100 Unit/Ml SUB-Q Not Given ACHS [facility] Protocol Isosorbide Mononitrate 30 mg 04/18/21 20:00 04/19/21 10:36 Isosorbide Mononitrate Er 30 Mg Tab PO 30 mg QDAY EFRAIN Administration Metoclopramide HCl 10 mg 04/18/21 19:22 Metoclopramide 10 Mg/2 Ml Inj IV Q6H PRN Nausea And Vomiting Metoprolol Tartrate 100 mg 04/18/21 22:00 04/19/21 22:19 Metoprolol Tartrate 100 Mg Tab PO 100 mg BID EFRAIN Administration Ondansetron HCl 4 mg 04/18/21 19:22 Ondansetron 4 Mg/2 Ml Inj IV Q8H PRN Nausea And Vomiting Oxycodone/Acetaminophen 1 tab 04/18/21 19:22 04/19/21 07:26 Oxycodone /Acetaminophen 5-325mg Tab PO 1 tab Q6H PRN Administration Pain, Moderate (4-6) Promethazine HCl 25 mg 04/18/21 19:22 Promethazine 25 Mg Rect Supp DE Q6H PRN N/V IF NPO AND NO IV ACCESS Sodium Chloride 10 ml 04/18/21 22:00 04/19/21 23:22 Sodium Chloride 0.9% 10 Ml Flush Syringe IV Not Given BID EFRAIN Sodium Chloride 10 ml 04/18/21 19:22 Sodium Chloride 0.9% 10 Ml Flush Syringe IV PRN PRN LINE FLUSH
[2021-04-20] MEDS: amLODIPine 10 MG TAB PO SCH (12:21)
[2021-04-20] MEDS: HEPARIN 5,000 UNIT/1 ML VIAL SUB-Q SCH (12:22)
[2021-04-20] MEDS: METOPROLOL TARTRATE 100 MG TAB PO SCH (12:23)
[2021-04-20] MEDS: FAMOTIDINE 20 MG TAB PO SCH (12:23)
[2021-04-20 12:34] VITALS: BP 138/76
[2021-04-20 14:50] LABS: Calcium 8.1 mg/dL (8.4-10.2)
--- NOTE | 2021-04-20 17:48 | Progress Note ---
Assessment and Plan 1. 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 Current creatinine increased to 3.6 mg/dl. UA with mild proteinuria. Urine lytes ordered. Started on IV fluids. Spironolactone and Losartan d/c'ed. Monitor renal function. Avoid nephrotoxic agents. Meds dosage based on GFR. 2. FEN: Hypokalemia, K level is better, monitor. Monitor lytes and volume status. 3. Hypertensive emergency: Likely 2/2 noncompliance. Adjust meds as needed. Monitor BP. Counseled. 4. Suicidal ideations: Seen by Psych. 5. DM type 2: A1C 6.1. Monitor. 6. Leukocytosis, POA: Trend. Subjective: Patient was not examined today. However the examination findings from other providers noted. The current and previous medical records are reviewed in detail as are laboratory and imaging data reviewed when appropriate. Medications being given are also reviewed. In addition the case has been discussed with the attending hospitalist and the nurse when needed. New renal recommendations as above. Examination: Subjective Date of service: 04/20/21 Objective - Vital Signs Vital signs: Vital Signs - 12hr 04/20/21 04/20/21 04/20/21 08:41 11:33 12:21 Temperature 98.7 F Pulse Rate 76 77 82 Respiratory 20 Rate Blood Pressure 128/79 104/59 135/76 O2 Sat by Pulse 96 Oximetry 04/20/21 04/20/21 04/20/21 12:22 12:23 13:06 Temperature Pulse Rate 76 78 Respiratory Rate Blood Pressure 138/76 138/76 O2 Sat by Pulse 99 Oximetry - Lab 04/20/21 06:03 04/20/21 14:13 Most recent lab results Calcium 8.1 mg/dL (8.4-10.2) L 04/20/21 14:13 Magnesium 2.10 mg/dL (1.7-2.3) 04/20/21 06:03 Medications & Allergies - Medications Allergies/Adverse Reactions: Allergies ants Allergy (Uncoded 04/19/21 10:20) Swelling Home Medications: Home Medications Medication Instructions Recorded Confirmed Last Taken Type AtorvaSTATin [Lipitor] 40 mg PO QHS #30 tablet 03/06/19 04/19/21 Unknown Rx Famotidine [Pepcid] 20 mg PO DAILY #60 tablet 03/06/19 04/19/21 Unknown Rx ISOSORBIDE MONOnitrate [Imdur ER] 30 mg PO QDAY #30 tablet 03/06/19 04/19/21 Unknown Rx Losartan [Cozaar] 50 mg PO QDAY #30 tablet 03/06/19 04/19/21 Unknown Rx cloNIDine [Catapres] 0.3 mg PO TID #90 tablet 03/06/19 04/19/21 Unknown Rx hydrALAZINE [Apresoline TAB] 50 mg PO Q8HR #90 tablet 03/06/19 04/19/21 Unknown Rx Metoprolol [Lopressor TAB] 100 mg PO BID #60 tablet 03/08/19 04/19/21 Unknown Rx Active Medications: Generic Name Dose Route Start Last Admin Trade Name Freq PRN Reason Stop Dose Admin Acetaminophen 650 mg 04/18/21 19:22 Acetaminophen 325 Mg Tab PO Q4H PRN Pain MILD(1-3)/Fever >100.5/DOWNS Amlodipine Besylate 10 mg 04/18/21 20:00 04/20/21 12:21 Amlodipine 10 Mg Tab PO 10 mg QDAY EFRAIN Administration Atorvastatin Calcium 40 mg 04/18/21 22:00 04/19/21 22:19 Atorvastatin 40 Mg Tab PO 40 mg QHS EFRAIN Administration Clonidine HCl 0.3 mg 04/18/21 20:00 04/20/21 15:56 Clonidine 0.1 Mg Tab PO 0.3 mg TID EFRAIN Administration Famotidine 20 mg 04/18/21 20:00 04/20/21 12:23 Famotidine 20 Mg Tab PO 20 mg DAILY EFRAIN Administration Heparin Sodium (Porcine) 5,000 unit 04/18/21 22:00 04/20/21 12:22 Heparin 5,000 Unit/1 Ml Vial SUB-Q 5,000 unit Q12HR EFRAIN Administration Hydralazine HCl 100 mg 04/18/21 22:00 04/20/21 15:56 Hydralazine 25 Mg Tab PO 100 mg Q8HR EFRAIN Administration Hydralazine HCl 10 mg 04/18/21 19:26 04/18/21 20:33 Hydralazine 20 Mg/1 Ml Inj IV 10 mg Q3H PRN Administration Blood Pressure Sodium Chloride 1,000 mls @ 75 mls/hr 04/20/21 18:00 Nacl 0.9% 1000 Ml IV DIRECT EFRAIN Insulin Glargine 25 units 12/03/21 22:00 04/19/21 23:21 Insulin Glargine 100 Units/Ml SUB-Q Not Given QHS [facility] Insulin Human Lispro 0 unit 04/18/21 22:00 04/20/21 12:24 Insulin Lispro 100 Unit/Ml SUB-Q Not Given ACHS [facility] Protocol Isosorbide Mononitrate 30 mg 04/18/21 20:00 04/20/21 12:22 Isosorbide Mononitrate Er 30 Mg Tab PO 30 mg QDAY EFRAIN Administration Metoclopramide HCl 10 mg 04/18/21 19:22 Metoclopramide 10 Mg/2 Ml Inj IV Q6H PRN Nausea And Vomiting Metoprolol Tartrate 100 mg 04/18/21 22:00 04/20/21 12:23 Metoprolol Tartrate 100 Mg Tab PO 100 mg BID EFRAIN Administration Ondansetron HCl 4 mg 04/18/21 19:22 Ondansetron 4 Mg/2 Ml Inj IV Q8H PRN Nausea And Vomiting Oxycodone/Acetaminophen 1 tab 04/18/21 19:22 04/19/21 07:26 Oxycodone /Acetaminophen 5-325mg Tab PO 1 tab Q6H PRN Administration Pain, Moderate (4-6) Promethazine HCl 25 mg 04/18/21 19:22 Promethazine 25 Mg Rect Supp [place] Q6H PRN N/V IF NPO AND NO IV ACCESS Sodium Chloride 10 ml 04/18/21 22:00 04/20/21 12:24 Sodium Chloride 0.9% 10 Ml Flush Syringe IV 10 ml BID EFRAIN Administration Sodium Chloride 10 ml 04/18/21 19:22 Sodium Chloride 0.9% 10 Ml Flush Syringe IV PRN PRN LINE FLUSH
[2021-04-20] MEDS ORDERED: SODIUM CHLORIDE 0.9% 1000 ML 1,000 ML IV SCH (18:00)
== END 2021-04-20 15:30 | disposition home or self-care (01) | DRG 304 ==
LOC: ED 10:53 → 3A 17:18
PROVIDERS: ADMIT Internal Medicine; ATTEND Internal Medicine
DX: I16.1 Hypertensive emergency (principal); N17.0 Acute kidney failure with tubular necrosis; R45.851 Suicidal ideations; E66.01 Morbid (severe) obesity due to excess calories; N18.30 Chronic kidney disease, stage 3 unspecified; I12.9 Hypertensive chronic kidney disease with stage 1 through stage 4 chronic kidney disease, or unspecified chronic kidney disease; E11.22 Type 2 diabetes mellitus with diabetic chronic kidney disease; I25.10 Atherosclerotic heart disease of native coronary artery without angina pectoris; D72.829 Elevated white blood cell count, unspecified; E87.6 Hypokalemia; Z20.822 Contact with and (suspected) exposure to COVID-19
CPT/HCPCS: 36415; 70450; 80048; 80053; 80307; 80320; 81001; 82962; 83036; 83735; 85025; 93005; 99285; G0378; J3490; G0480; J0360; J1644; J1815; J3486; U0003